=== PATIENT | female | born 1950 | race Caucasian/White ===

== ENCOUNTER 2018-05-18 14:18 | Inpatient (IN) | payer MEDICARE, MEDICAID ==
--- NOTE | 2018-05-18 15:19 | ER Document Report ---
ED Medical Screen (RME) - General Chief Complaint: Diarrhea Stated Complaint: DIARRHEA Time Seen by Provider: 05/18/18 15:11 Notes: RAPID MEDICAL EVALUATION DISCLOSURE I have seen this patient as part of a Rapid Medical Evaluation and, if applicable, placed any initially appropriate orders. The patient will be seen and fully evaluated, including a full history and physical exam, by a provider ( in Main ED or Fast Track) when a room becomes available. 68F here w c/o SOB cough prod white sputum past few days. Feels as though she may have pneumonia again. Also c/o diarrhea past few days, numerous times daily , and feeling cold and clammy. No abd pain n/v. She does wear continuous O2. EXAM Difficult to auscultate 2/2 poor patient effort no abd TTP TRAVEL OUTSIDE OF THE [place] IN LAST 30 DAYS: No - Related Data Allergies/Adverse Reactions: No Known Allergies Allergy (Verified 05/18/18 14:20) Past Medical History - Social History Chew tobacco use (# tins/day): No Frequency of alcohol use: None Drug Abuse: None Pulmonary Medical History: Reports: Hx COPD Renal/ Medical History: Denies: Hx Peritoneal Dialysis Physical Exam - Vital signs Vitals: Temp Pulse Resp BP Pulse Ox 97.7 F 81 20 171/80 H 100 05/18/18 14:37 05/18/18 14:37 05/18/18 14:37 05/18/18 14:37 05/18/18 14:37 Course - Vital Signs Vital signs: Temp Pulse Resp BP Pulse Ox 97.7 F 81 20 171/80 H 100 05/18/18 14:37 05/18/18 14:37 05/18/18 14:37 05/18/18 14:37 05/18/18 14:37
--- NOTE | 2018-05-18 15:49 | RADIOLOGY REPORT (SQ) ---
EXAM DESCRIPTION: CHEST 2 VIEWS COMPLETED DATE/TIME: 05/18/2018 3:37 pm REASON FOR STUDY: cough SOB; pneumonia? COMPARISON: 09/26/2009 EXAM PARAMETERS: NUMBER OF VIEWS: two views TECHNIQUE: Digital Frontal and Lateral radiographic views of the chest acquired. RADIATION DOSE: NA LIMITATIONS: none FINDINGS: LUNGS AND PLEURA: Findings of COPD, unchanged. Mild prominence of the interstitial marnie ngs more so in the apices--upper lobes since the prior examination. Prominence of the bilateral rafael r regions may represent the pulmonary arteries. No pneumothorax or pleural effusion. MEDIASTINUM AND HILAR STRUCTURES: No masses or contour abnormalities. HEART AND VASCULAR STRUCTURES: Heart normal size. No evidence for failure. BONES: Kyphoplasty in the midthoracic spine at the thoracolumbar junction with remote compression de formities, represent new findings since the prior study. No acute findings. HARDWARE: Vascular stent suggested either in the region of the left common carotid artery or left campbell bclavian artery, new finding. Partially visualized IVC filter to the right of the upper lumbar spine . OTHER: Stable hiatal hernia. IMPRESSION: 1 Findings of COPD, unchanged since the prior study dated 09/26/2009. 2 Mild prominence of the interstitial markings particularly in the apices--upper lobes, new finding s silverio the prior study. Prominence of the hilar regions bilaterally may represent pulmonary arteries. Further evaluation with CT chest suggested. TECHNICAL DOCUMENTATION: JOB ID: [id number] [employer]- All Rights Reserved Reading location - IP/workstation name: [email or web address]
[2018-05-18 16:21] LABS: ABSOLUTE BASOPHILS # (AUTO) 0.1 10^3/uL (0.0-0.2); ABSOLUTE EOSINOPHILS # (AUTO) 0.2 10^3/uL (0.0-0.6); ABSOLUTE LYMPHOCYTES (AUTO) 0.6 10^3/uL (0.5-4.7); ABSOLUTE MONOCYTES (AUTO) 0.4 10^3/uL (0.1-1.4); ABSOLUTE NEUT (AUTO) 4.7 10^3/uL (1.7-8.2); HEMOGLOBIN 9.9 g/dL (12.0-15.5); LYMPHOCYTES % (AUTO) 9.7 % (13-45); MEAN CORPUSCULAR HEMOGLOBIN 20.1 pg (27.0-33.4); MEAN CORPUSCULAR HGB CONC 29.1 g/dL (32.0-36.0); MEAN CORPUSCULAR VOLUME 69 fl (80-97); PLATELET COUNT 347 10^3/uL (150-450); RED BLOOD COUNT 4.93 10^6/uL (3.72-5.28); RED CELL DISTRIBUTION WIDTH 20.6 % (11.5-14.0); SEGMENTED NEUTROPHILS % (AUTO) 79.3 % (42-78); TOTAL CELLS COUNTED % (AUTO) 100 %; WHITE BLOOD COUNT 5.9 10^3/uL (4.0-10.5)
[2018-05-18 16:23] LABS: INTERNATIONAL RATION (INR) 2.54; PROTHROMBIN TIME 28.5 SEC (11.4-15.4)
[2018-05-18 16:31] LABS: ALANINE AMINOTRANSFERASE 30 U/L (9-52); ALBUMIN 4.2 g/dL (3.5-5.0); ALKALINE PHOSPHATASE 100 U/L (38-126); ANION GAP 11 (5-19); ASPARTATE AMINO TRANSFERASE 35 U/L (14-36); BILIRUBIN,DIRECT 0.3 mg/dL (0.0-0.4); BILIRUBIN,TOTAL 0.4 mg/dL (0.2-1.3); BLOOD UREA NITROGEN 13 mg/dL (7-20); CALCIUM 9.9 mg/dL (8.4-10.2); CARBON DIOXIDE 35 mmol/L (22-30); CHLORIDE 101 mmol/L (98-107); GLUCOSE 83 mg/dL (75-110); LIPASE 94.1 U/L (23-300); POTASSIUM 4.7 mmol/L (3.6-5.0); SODIUM 147.3 mmol/L (137-145); TOTAL PROTEIN 7.1 g/dL (6.3-8.2)
[2018-05-18 16:40] LABS: TROPONIN I 0.019 ng/mL
--- NOTE | 2018-05-18 16:54 | ER Document Report ---
ED General - General Chief Complaint: Diarrhea Stated Complaint: DIARRHEA Time Seen by Provider: 05/18/18 15:11 TRAVEL OUTSIDE OF THE [place] IN LAST 30 DAYS: No - HPI Notes: Patient is a 68-year-old female with a history of end-stage COPD, coronary artery disease, chronic pain who presents to the ED complaining of a dry semi- productive cough, increasing wheezing, dyspnea over the last several days. Patient states that she is also had diarrhea, but only once per day. She has not noticed any melena or hematochezia. Patient recently moved to the area and has not established with anybody here. She denies any drug allergies. Patient states that she is still eating and drinking without any difficulties. She is urinating normally. Patient states that she has not had any chest pain. Patient states that she feels like she has an illness and exacerbation of her COPD. Denies any headache, fever, URI, sore throat, chest pain, palpitations, syncope, abdominal pain, nausea/vomiting, urinary retention, dysuria, hematuria , or rash. - Related Data Allergies/Adverse Reactions: No Known Allergies Allergy (Verified 05/18/18 14:20) Past Medical History - Social History Smoking Status: Current Some Day Smoker Chew tobacco use (# tins/day): No Frequency of alcohol use: None Drug Abuse: None Family History: Reviewed & Not Pertinent Patient has suicidal ideation: No Patient has homicidal ideation: No Pulmonary Medical History: Reports: Hx COPD Renal/ Medical History: Denies: Hx Peritoneal Dialysis Review of Systems - Review of Systems -: Yes All other systems reviewed and negative Physical Exam - Vital signs Vitals: Temp Pulse Resp BP Pulse Ox 97.7 F 81 20 171/80 H 100 05/18/18 14:37 05/18/18 14:37 05/18/18 14:37 05/18/18 14:37 05/18/18 14:37 - Notes Notes: PHYSICAL EXAMINATION: GENERAL: Cachectic and in no acute distress. A&O. Answers questions appropriately. HEAD: Atraumatic, normocephalic. EYES: Pupils equal round and reactive to light, extraocular movements intact, sclera anicteric, conjunctiva are normal. ENT: Nares patent and without discharge. oropharynx clear without exudates. No tonsilar hypertrophy or erythema. Moist mucous membranes. NECK: Normal range of motion, supple without lymphadenopathy LUNGS: Dec breath sounds throughout, prolonged expiration HEART: Regular rate and rhythm without murmurs, rubs, gallops. ABDOMEN: Soft, nontender, nondistended abdomen. No guarding, no rebound. No masses appreciated. Normal bowel sounds present. No CVA tenderness bilaterally. Musculoskeletal: FROM to passive/active. Strength 5+/5. Extremities: No cyanosis, clubbing, or edema b/l. Peripheral pulses 2+. Capillary refill less than 3 seconds. NEUROLOGICAL: Cranial nerves grossly intact. Normal speech. PSYCH: Normal mood, normal affect. SKIN: Warm, Dry, normal turgor, no rashes or lesions noted. Course - Re-evaluation Re-evalutation: 05/18/18 18:50 Patient is an afebrile, well-hydrated, 68-year-old female who presents to the ED with CHF exacerbation, COPD exacerbation, right apical lung mass (new onset) , compression fractures in the thoracic spine. Vitals are acceptable without any significant tachycardia, tachypnea, or hypoxia. PE is otherwise unremarkable. Venous blood gas shows chronic hypercarbia with compensation. CBC and CMP are unremarkable. BNP was elevated at 3540. See chest x-ray result which led to a CT scan of the chest. I did review with Dr. Christopher who accepted patient for the night hospitalist, Dr. Noriega. - Vital Signs Vital signs: Temp Pulse Resp BP Pulse Ox 97.7 F 81 25 H 165/77 H 100 05/18/18 14:37 05/18/18 14:37 05/18/18 17:36 05/18/18 17:36 05/18/18 14:37 - Laboratory Result Diagrams: 05/18/18 15:55 05/18/18 15:55 Laboratory results interpreted by me: 05/18/18 05/18/18 05/18/18 15:55 15:55 15:55 Hgb 9.9 L Hct 34.0 L MCV 69 L MCH 20.1 L MCHC 29.1 L RDW 20.6 H Seg Neutrophils % 79.3 H Lymphocytes % 9.7 L PT VBG pCO2 VBG HCO3 Sodium 147.3 H Carbon Dioxide 35 H NT-Pro-B Natriuret Pep 3540 H 05/18/18 05/18/18 15:55 17:20 Hgb Hct MCV MCH MCHC RDW Seg Neutrophils % Lymphocytes % PT 28.5 H VBG pCO2 74.8 H* VBG HCO3 37.7 H Sodium Carbon Dioxide NT-Pro-B Natriuret Pep Discharge - Discharge Clinical Impression: COPD exacerbation, Lung mass, Compression fracture CHF (congestive heart failure) Qualifiers: Heart failure type: unspecified Heart failure chronicity: acute Qualified Code( s): I50.9 - Heart failure, unspecified Condition: Stable Disposition: ADMITTED INPATIENT Admitting Provider: Hospitalist - Dr. Noriega Unit Admitted: Medical Floor
[2018-05-18 17:53] LABS: VENOUS BLOOD BASE EXCESS 9.7 mmol/L; VENOUS BLOOD HCO3 37.7 mmol/L (20-32); VENOUS BLOOD PH 7.32 (7.30-7.42)
[2018-05-18 17:57] LABS: VENOUS BLOOD PCO2 74.8 mmHg (35-63)
--- NOTE | 2018-05-18 18:28 | RADIOLOGY REPORT (SQ) ---
EXAM DESCRIPTION: CT CHEST WITH COMPLETED DATE/TIME: 05/18/2018 6:13 pm REASON FOR STUDY: per radiologist suggestion, further evaluation COMPARISON: 2008 TECHNIQUE: CT scan of the chest performed using helical scanning technique with dynamic intravenous contrast injection. Images reviewed with lung, soft tissue and bone windows. Reconstructed coronal and sagittal MPR images reviewed. All images stored on PACS. All CT scanners at this facility use dose modulation, iterative reconstruction, and/or weight based d osing when appropriate to reduce radiation dose to as low as reasonably achievable (ALARA). [facility]: Dose Right [facility]: CareDose [facility]: Dose Right [facility]: Teradose 4D [facility]: TravelZeeky CONTRAST TYPE AND DOSE: contrast/concentration: Isovue 370.00 mg/ml; Total Contrast Delivered: 80.0 ml; Total Saline Delivered: 55.0 ml RENAL FUNCTION: GFR > 60. RADIATION DOSE: CT Rad equipment meets quality standard of care and radiation dose reduction techniq ues were employed. CTDIvol: 3.1 mGy. DLP: 122 mGy-cm. . LIMITATIONS: None. FINDINGS: LUNGS AND PLEURA: Extensive emphysema. There is now 1.2 cm right apical mass not seen on the prior study in 2008. Scarring at the left base. HILAR AND MEDIASTINAL STRUCTURES: No identified masses or abnormal nodes. HEART AND VASCULAR STRUCTURES: No aneurysm or dissection. No central pulmonary emboli. No pericardi al effusion. Left carotid stent. HARDWARE: None in the chest. UPPER ABDOMEN: Large hiatal hernia. THYROID AND OTHER SOFT TISSUES: No masses. No adenopathy. BONES: Treated compression fractures. These appear to be approximately L1 and T6. There also compre ssion fractures of T5 and T8 which could be acute. OTHER: No other significant finding. IMPRESSION: Spiculated right apical mass measures 1.2 cm. New since 2008. Extensive emphysema. Compression fractures of approximately T5 and T8 which could be acute. Additional treated fractures. Large hiatal hernia. TECHNICAL DOCUMENTATION: JOB ID: [id number] Quality ID # [id number]: Final reports with documentation of one or more dose reduction techniques (e.g., Au tomated exposure control, adjustment of the mA and/or kV according to patient size, use of iterative reconstruction technique) 2010 [employer]- All Rights Reserved Reading location - IP/workstation name: [email or web address]
--- NOTE | 2018-05-18 19:20 | EKG REPORT ---
SEVERITY:- ABNORMAL ECG - SINUS RHYTHM ATRIAL PREMATURE COMPLEX RIGHT ATRIAL ABNORMALITY BORDERLINE RIGHT AXIS DEVIATION CONSIDER LEFT VENTRICULAR HYPERTROPHY : Confirmed by: Lory Vasques 18-May-2018 19:19:54
[2018-05-18] MEDS ORDERED: ACETAMINOPHEN 325 MG TABLET PO PRN (21:12)
[2018-05-18] MEDS ORDERED: IPRATROPIUM/ALBUTEROL 0.5-2.5 MG/3 ML AMPUL NEB PRN (21:12)
[2018-05-18] MEDS ORDERED: METHYLPREDNISOLONE INJ 125 MG/2 ML SDV IV ONE (21:30)
[2018-05-18] MEDS ORDERED: WARFARIN SODIUM 4 MG TABLET PO SCH (22:00)
[2018-05-18] MEDS ORDERED: METHYLPREDNISOLONE INJ 125 MG/2 ML SDV IV SCH (22:00)
[2018-05-18] MEDS ORDERED: AZITHROMYCIN 500 MG in DEXTROSE 5%-WATER 250 ML IV SCH (22:00)
[2018-05-18] MEDS ORDERED: (PENDING PHARMACY ID) (Buspirone Hcl [Buspar 5 Mg Tablet] 5 MG) PO SCH (22:00)
[2018-05-18] MEDS: BUSPIRONE HCL 10 MG TABLET PO SCH (22:32)
[2018-05-18] MEDS: GABAPENTIN 300 MG CAPSULE PO SCH (22:33)
[2018-05-19] MEDS: HYDROCODONE/ACETAMINOPHEN 5-325 MG TABLET PO PRN (01:03)
[2018-05-19] MEDS: METHYLPREDNISOLONE INJ 40 MG/1 ML SDV IV SCH ×3 (01:04→18:29)
[2018-05-19] MEDS ORDERED: NICOTINE 14 MG/24 HR PATCH.TD24 TD PRN (01:44)
--- NOTE | 2018-05-19 01:44 | PDOC H&P ---
History of Present Illness Admission Date/PCP: 05/18/18 18:58 Patient complains of: Shortness of breath History of Present Illness: MJ SHELTON is a 68 year old female, with history of end stage COPD on concentrated oxygen at home, comes to the emergency department complaining of progressive shortness of breath for the last 3 days, cough, with whitish sputum and wheezing, clammy sensation. Today it was very hard to breathe at home, nebulizer treatments did not work. The patient is still unfortunately a smoker , she has not been smoking for the last 2 days secondary to her symptoms. Patient also has had diarrhea for the last 3 days with 2 soft bowel nonbloody movements yesterday and today 1 bowel movement. Denies fever, headache, chest pain, abdominal pain, urinary symptoms. Denies weight loss, patient looks cachectic. Patient just moved from [place] last week to live with her daughter. In the ED CT of the chest was done which unfortunately came back positive for right upper lung mass; several compression fracture, apparently acute in T5-T8. Past Medical History Past Medical History: End stage COPD on concentrated oxygen at home. On oxygen for about 10 years Congestive heart failure, unknown systolic or diastolic Coronary arterial disease with 1 stent placed Chronic anemia Hypertension Osteoporosis Hiatal hernia Peripheral vascular disease Pulmonary Medical History: Reports: Chronic Obstructive Pulmonary Disease (COPD) Psychiatric Medical History: Reports: Depression Past Surgical History Past Surgical History: Left carotid stent Revascularization and lower extremities Social History Smoking Status: Current Every Day Smoker - Smokes from 3-6 cigarettes a day. Used to smoke 4 packs per day at some point of her life. A started smoking when she was 14 years old Frequency of Alcohol Use: None Drugs: None Family History Family History: Reviewed & Not Pertinent Family History: Mother is alive 88 years old, history of CABG 4, CVA and hypertension. Father at 78 years old with metastatic stomach cancer. Sister with kidney problems. Brother and sister with lung cancer Parental Family History Reviewed: No Children Family History Reviewed: NA Sibling(s) Family History Reviewed.: NA Medication/Allergy Home Medications: Amlodipine Besylate [Norvasc 5 mg Tablet] 2.5 mg PO DAILY 05/18/18 Buspirone HCl [Buspar 5 mg Tablet] 5 mg PO Q12 05/18/18 Citalopram Hydrobromide [Celexa 10 mg Tablet] 10 mg PO DAILY 05/18/18 Donepezil HCl [Aricept 5 mg Tablet] 5 mg PO QPM 05/18/18 Ferrous Sulfate [Feosol 325 mg Tablet] 325 mg PO BID 05/18/18 Fluticasone Propionate [Flovent HFA 220 mcg MDI] 2 puff IH Q12 05/18/18 Gabapentin [Neurontin 300 mg Capsule] 300 mg PO Q8 05/18/18 Hydrocodone/Acetaminophen [Hydrocodone-Acetamin 5-325 mg] 1 tab PO Q8HP PRN Mirtazapine [Remeron 15 mg Tablet] 15 mg PO QPM 05/18/18 Tiotropium [place] [Spiriva Handihaler 5 Cap/Kit (18 Mcg/Cap)] 1 puff IH DAILY 05/18/18 Warfarin Sodium [Coumadin 4 mg Tablet] 4 mg PO QPM 05/18/18 Allergies/Adverse Reactions: No Known Allergies Allergy (Verified 05/18/18 14:20) Review of Systems Review of Systems: As outlined in the HPI, all others negative Physical Exam Vital Signs: Temp Pulse Resp BP Pulse Ox 98.2 F 92 18 125/79 100 05/18/18 23:19 05/18/18 23:19 05/18/18 23:19 05/18/18 23:19 05/19/18 00:12 Additional comments: General appearance: Cachectic, alert and cooperative, and appears to be in mild distress secondary to her shortness of breath Head: Normocephalic Eyes: PEERL, EOMI, vision is grossly intact. Ears: External auditory canal and tympanic membranes clear, hearing grossly intact. Nose: No nasal discharge. Throat: Oral cavity and pharynx normal. No inflammation, swelling, exudate or lesions. Neck: Neck supple, nontender without lymphadenopathy, masses or thyromegaly. Cardiac: Normal S1 and S2. No S3, S4 or murmurs. Rhythm is regular. There is no peripheral edema, cyanosis or pallor. Extremities are warm and well perfused. Capillary refill is less than 2 seconds. No carotid bruits. Lungs: Bilateral decreased breath sounds with rales, mild diffuse rhonchi, diffused wheezing. Not using accessory muscles. Abdomen: Positive bowel sounds. Soft. Nondistended, nontender. No guarding or rebound. No masses. No hepatosplenomegaly Extremities: No significant deformity or joint abnormality. No edema. Peripheral pulses intact. No varicosities. Neurological: Cranial nerves II through XII grossly intact. Strength and sensation symmetric and intact throughout. Reflexes 2+ throughout. Skin: Skin normal color, texture and turgor with no lesions or eruptions, warm and dry. Psychiatric: The mental examination revealed the patient was oriented to person , place, and time. The patient was able to demonstrate good judgment on recent , without hallucinations, abnormal affect or abnormal behaviors. Results Laboratory Results: Laboratory reviewed Impressions: Chest X-Ray 05/18/18 15:17 IMPRESSION: 1 Findings of COPD, unchanged since the prior study dated 2008. 2 Mild prominence of the interstitial markings particularly in the apices-- upper lobes, new finding since the prior study. Prominence of the hilar regions bilaterally may represent pulmonary arteries. Further evaluation with CT chest suggested. Chest CT 05/18/18 16:19 IMPRESSION: Spiculated right apical mass measures 1.2 cm. New since 2008. Extensive emphysema. Compression fractures of approximately T5 and T8 which could be acute. Additional treated fractures. Large hiatal hernia. Assessment & Plan - Diagnosis (1) COPD exacerbation Is this a current diagnosis for this admission?: Yes Plan: COPD exacerbation in the setting of chronic respiratory failure on concentrated oxygen at home. No documentation of hypoxia when the patient arrived to the emergency department and was saturating 100% on 2 L oxygen via nasal cannula. At times tachypneic, requesting a steroids I will give 125 mg IV Solu-Medrol followed by 60 mg every 8 hours. O2 protocol with RT consult. Nebulizer treatments with DuoNeb every 3 hours as needed. IV azithromycin. Telemetry monitoring. Follow blood culture seen in the ED. (2) Compression fracture Plan: Patient shows several compression fractures in the CT of the chest, unclear if T5-T8 are acute but the patient is not complaining of back pain at the time of my evaluation. Will place orthopedics consult. (3) Lung mass Plan: CT of the chest shows a 1.2 cm of right apical mass, different from CT done in 2007, patient with family history of lung cancer and heavy smoker past, unfortunately currently smoking. Patient is aware of the diagnosis and probably workup has to be done as an outpatient. (4) Coronary artery disease Plan: No cardiac symptomatology continue with home medications. - Time Time Spent: 30 to 50 Minutes Anticipated discharge: Home Within: within 24 hours, within 48 hours
[2018-05-19] MEDS: GABAPENTIN 300 MG CAPSULE PO SCH ×3 (06:48→21:46)
[2018-05-19 07:14] LABS: PROTHROMBIN TIME 29.1 SEC (11.4-15.4)
[2018-05-19 07:21] LABS: ANION GAP 9 (5-19); BLOOD UREA NITROGEN 16 mg/dL (7-20); CALCIUM 9.9 mg/dL (8.4-10.2); CARBON DIOXIDE 36 mmol/L (22-30); CHLORIDE 101 mmol/L (98-107); GLUCOSE 122 mg/dL (75-110); PHOSPHORUS 5.1 mg/dL (2.5-4.5); POTASSIUM 5.1 mmol/L (3.6-5.0); SODIUM 145.5 mmol/L (137-145)
[2018-05-19 07:54] LABS: ARTERIAL BLOOD FIO2 2L; ARTERIAL BLOOD H2CO3 1.99 mmol/L (1.05-1.35); ARTERIAL BLOOD HCO3 34.3 mmol/L (20-26); ARTERIAL BLOOD O2 SATURATION 97.5 % (94-98); ARTERIAL BLOOD PCO2 66.2 mmHg (35-45); ARTERIAL BLOOD PH 7.33 (7.35-7.45); ARTERIAL BLOOD PO2 108.9 mmHg (80-100); ARTERIAL BLOOD TOTAL CO2 36.3 mmol/L (21-25)
[2018-05-19 08:10] LABS: HEMATOCRIT 32.4 % (36.0-47.0); HEMOGLOBIN 9.5 g/dL (12.0-15.5); MEAN CORPUSCULAR HEMOGLOBIN 20.2 pg (27.0-33.4); MEAN CORPUSCULAR HGB CONC 29.2 g/dL (32.0-36.0); MEAN CORPUSCULAR VOLUME 69 fl (80-97); PLATELET COUNT 300 10^3/uL (150-450); RED CELL DISTRIBUTION WIDTH 20.2 % (11.5-14.0)
[2018-05-19 08:11] LABS: WHITE BLOOD COUNT 2.6 10^3/uL (4.0-10.5)
--- NOTE | 2018-05-19 09:06 | Physician Advisory Note ---
Physician Advisor ProgressNote .: [facility], I have reviewed the medical record for this patient. Physician Advisor Statement: Nice documentation of "Chronic [Hypoxemic/hypercarbic] Respiratory Failure, pt needs O2 at baseline". (2L O2) Please consider documenting, if you agree: 1. "Acute bronchitis", or what dx is being tx'd w/abx, given COPD exac.s don't require abx unless underlying infxn is suspected w/it... 2. ?"mild acute hypercarbic respiratory failure" ("mild resp distress" already documented in H&P) - pt w/chr resp failure, w/pH <7.35 associated w/hypercarbia ("any degree of acute respiratory acidosis", defined by this parameter, in chr resp failure qualifies for this dx) 3. "underweight with protein-calorie malnutrition [state mild, mod, or severe] with BMI 10.6, ____[?wt loss, ?appetite loss, ]" [if possible, give specifics on intake, wt loss, loss of SQ fat & muscle mass, diminished hand wash tank tender strength, & clinical importance such as (A) nutritional assessment ordered, (B) modified diet or supplements ordered, (C) additional labs ordered, (D) prolonged wound healing time, (E) delayed infxn clearance] 4. "chronic CHF, suspect type" - ? diastolic, since heart size nl, evidence for LVH by EKG, pt not on ACEI/ ARB, BB, etc.? 5. "Rt apical lung mass, suspect " (lung CA? or PNA or ...?) - documentation so far implies suspicion of lung CA, but suspected underlying dx needs to be made explicit for coding ... 6. Medical necessity: Medicare pt, has needed 1 MN of hospital care so far. If she is not sufficiently improved for safe d/c later today, please document ongoing clinical issues/concerns (recurrent tachypnea/tachycardia, or not yet back to resp baseline yet, or ...), & may change to INpatient status. Thanks! CK
[2018-05-19] MEDS: FERROUS SULFATE 325 MG TABLET PO SCH ×2 (09:21→18:28)
[2018-05-19] MEDS: TIOTROPIUM BROMIDE DPI 5 CAP/KIT (18 MCG/CAP) IH SCH (09:22)
[2018-05-19] MEDS: CITALOPRAM HYDROBROMIDE 20 MG TABLET PO SCH (09:22)
[2018-05-19] MEDS: BUSPIRONE HCL 10 MG TABLET PO SCH ×2 (09:22→21:46)
[2018-05-19] MEDS: AMLODIPINE BESYLATE 2.5 MG TABLET PO SCH (09:24)
[2018-05-19] MEDS ORDERED: (PENDING PHARMACY ID) (Citalopram Hydrobromide [Celexa 10 Mg Tablet] 10 MG) PO SCH (10:00)
[2018-05-19] MEDS ORDERED: AMLODIPINE BESYLATE 5 MG TABLET PO SCH (10:00)
--- NOTE | 2018-05-19 16:09 | PDOC PROGRESS REPORT ---
<STEPHEN CASTILLO - Last Filed: 05/19/18 16:09> Subjective Progress Note for:: 05/19/18 Subjective:: Patient is seen resting in bed. She is awake, alert and oriented 3. She continues to have productive cough with thick white sputum raise. She states her breathing feels improved somewhat due to IV steroids. She states she began having upper respiratory symptoms 1 week ago with nasal congestion and sore throat. This progressed to cough, worsening dyspnea and chills. She felt like she does when she has pneumonia. She states last night she was unable to catch her breath. She thought she was going to . She wears oxygen at home continuously at 3 L/min. She has just removed to the area and has no physician established yet. She has borrowed her oxygen concentrator from a family member. She states she was having diarrhea last night as well. She has had a very poor appetite and she knows she is continued to lose weight. Remaining review of systems are negative Reason For Visit: COPD EXACERBATION Physical Exam Vital Signs: Temp Pulse Resp BP Pulse Ox 98.4 F 83 16 116/62 94 05/19/18 13:02 05/19/18 14:39 05/19/18 14:39 05/19/18 13:02 05/19/18 14:39 General appearance: PRESENT: mild distress, thin - She becomes dyspneic with minimal exertion. Head exam: PRESENT: atraumatic, normocephalic Eye exam: PRESENT: conjunctiva pink, EOMI, PERRLA. ABSENT: scleral icterus Ear exam: PRESENT: normal external ear exam Mouth exam: PRESENT: moist, tongue midline Neck exam: ABSENT: carotid bruit, JVD, lymphadenopathy, thyromegaly Respiratory exam: PRESENT: accessory muscle use, decreased breath sounds, rhonchi, symmetrical, tachypnea Cardiovascular exam: PRESENT: RRR. ABSENT: diastolic murmur, rubs, systolic murmur Pulses: PRESENT: normal carotid pulses, normal radial pulses Vascular exam: PRESENT: normal capillary refill GI/Abdominal exam: PRESENT: normal bowel sounds, soft. ABSENT: distended, guarding, mass, organolmegaly, rebound, tenderness Rectal exam: PRESENT: deferred Extremities exam: PRESENT: full ROM. ABSENT: calf tenderness, clubbing, pedal edema Musculoskeletal exam: PRESENT: full ROM, normal inspection Neurological exam: PRESENT: alert, awake, oriented to person, oriented to place , oriented to time, oriented to situation, CN II-XII grossly intact. ABSENT: motor sensory deficit Psychiatric exam: PRESENT: anxious Skin exam: PRESENT: dry, skin tears, warm Results Impressions: Chest X-Ray 05/18/18 15:17 IMPRESSION: 1 Findings of COPD, unchanged since the prior study dated 2008. 2 Mild prominence of the interstitial markings particularly in the apices-- upper lobes, new finding since the prior study. Prominence of the hilar regions bilaterally may represent pulmonary arteries. Further evaluation with CT chest suggested. Chest CT 05/18/18 16:19 IMPRESSION: Spiculated right apical mass measures 1.2 cm. New since 2008. Extensive emphysema. Compression fractures of approximately T5 and T8 which could be acute. Additional treated fractures. Large hiatal hernia. Assessment & Plan - Diagnosis (1) Acute hypercapnic respiratory failure Is this a current diagnosis for this admission?: Yes Plan: Secondary to acute bronchitis in the setting of severe COPD. She likely could benefit from CPAP or BiPAP therapy at night. She presented with PCO2 of 75. Will order BiPAP as needed and at bedtime. Consult to pulmonary. Continue IV broad-spectrum antibiotics for acute bronchitis and taper steroids. (2) COPD exacerbation Is this a current diagnosis for this admission?: Yes Plan: Likely secondary to bronchitis and recent upper respiratory infection. Need to find patient primary care provider she is just moved to the area last week with her daughter. (3) Lung mass Is this a current diagnosis for this admission?: Yes Plan: Incidental finding of a 1.2 spiculated right upper lobe lung mass setting of COPD and tobacco abuse. I have asked Dr. Macias, shop and alteration tailor to see patient. Patient likely would not be a surgical candidate due to her severe COPD and cachetic state. She may be a candidate for radiation therapy (4) Compression fracture Is this a current diagnosis for this admission?: Yes Plan: Patient denies any recent falls. Not having pain in her back at the present time either. Cancel consult with orthopedics patient is not interested in kyphoplasty at this time (5) Coronary artery disease QualifierTitle: Coronary Disease-Associated Artery/Lesion type: [place] artery Is this a current diagnosis for this admission?: Yes Plan: Patient states she has 1 stent in her coronary arteries and one stent in her carotid. (6) Severe protein-calorie malnutrition ([place]: less than 60% of standard weight ) Is this a current diagnosis for this admission?: Yes Plan: Liberalize her diet. Consult dietary for nutritional supplements. She is a BMI of 11. She admits to very poor appetite due to respiratory difficulties. (7) Chronic anticoagulation Is this a current diagnosis for this admission?: Yes Plan: Patient states she is taking Coumadin for sounds like paroxysmal atrial fibrillation and her carotid disease (8) Tobacco abuse Is this a current diagnosis for this admission?: Yes Plan: 10 minutes spent in [id number] counseling regarding tobacco cessation therapy. She states she has stopped multiple times and then relapses - Time Time Spent with patient: 25-34 minutes Total Critical Time (Minutes): 20 Smoking Cessation Education: 3 to 10 minutes Medications reviewed and adjusted accordingly: Yes - Inpatient Certification Based on my medical assessment, after consideration of the patient's comorbidities, presenting symptoms, or acuity I expect that the services needed warrant INPATIENT care.: Yes I certify that my determination is in accordance with my understanding of Medicare's requirements for reasonable and necessary INPATIENT services [42 CFR 412.3e].: Yes Medical Necessity: Significant Comorbidiites Make Outpatient Treatment Too Risky , Need for Nebulizer Therapy and Monitoring of Response, Risk of Complication if Not Cared For in Hospital <ABDIEL QURESHI - Last Filed: 05/19/18 18:11> Subjective Reason For Visit: COPD EXACERBATION Physical Exam Vital Signs: Temp Pulse Resp BP Pulse Ox 98.4 F 93 16 112/63 98 05/19/18 16:45 05/19/18 16:45 05/19/18 16:45 05/19/18 16:45 05/19/18 16:45 Results Impressions: Chest X-Ray 05/18/18 15:17 IMPRESSION: 1 Findings of COPD, unchanged since the prior study dated 2008. 2 Mild prominence of the interstitial markings particularly in the apices-- upper lobes, new finding since the prior study. Prominence of the hilar regions bilaterally may represent pulmonary arteries. Further evaluation with CT chest suggested. Chest CT 05/18/18 16:19 IMPRESSION: Spiculated right apical mass measures 1.2 cm. New since 2008. Extensive emphysema. Compression fractures of approximately T5 and T8 which could be acute. Additional treated fractures. Large hiatal hernia. Provider Note Provider Note: I have discussed the patient in detail with JAMMIE Castillo. I am in agreement with her evaluation and plan.
[2018-05-19] MEDS ORDERED: (PENDING PHARMACY ID) (Warfarin Sodium 4 MG) PO SCH (18:00)
[2018-05-19] MEDS: MIRTAZAPINE 15 MG TABLET PO SCH (18:28)
[2018-05-19] MEDS: DONEPEZIL HCL 5 MG TABLET PO SCH (18:28)
[2018-05-19] MEDS: FLUTICASONE/SALMETEROL DISKUS 250-50 MCG/DOSE IH SCH (21:46)
[2018-05-19] MEDS: WARFARIN SODIUM 3 MG TABLET PO SCH (21:46)
[2018-05-19] MEDS: AZITHROMYCIN 250 MG TABLET PO SCH (21:46)
[2018-05-20] MEDS: METHYLPREDNISOLONE INJ 40 MG/1 ML SDV IV SCH ×3 (01:31→18:26)
[2018-05-20] MEDS: GABAPENTIN 300 MG CAPSULE PO SCH ×3 (06:34→21:29)
[2018-05-20] MEDS: FERROUS SULFATE 325 MG TABLET PO SCH ×2 (08:44→15:39)
[2018-05-20] MEDS: CITALOPRAM HYDROBROMIDE 20 MG TABLET PO SCH (10:25)
[2018-05-20] MEDS: BUSPIRONE HCL 10 MG TABLET PO SCH ×2 (10:25→21:29)
[2018-05-20] MEDS: AMLODIPINE BESYLATE 2.5 MG TABLET PO SCH (10:26)
[2018-05-20] MEDS: FLUTICASONE/SALMETEROL DISKUS 250-50 MCG/DOSE IH SCH ×2 (10:27→21:29)
[2018-05-20] MEDS: TIOTROPIUM BROMIDE DPI 5 CAP/KIT (18 MCG/CAP) IH SCH (10:28)
--- NOTE | 2018-05-20 13:02 | CONSULTATION REPORT E ---
Consultation Report NAME: MJ SHELTON : 1950 AGE: 68Y DATE: 05/19/2018 407 A TO: DARRYL WANG M.D. FROM: BENJAMÍN TERRY M.D. Requesting Physician The patient is a 68-year-old female who came in with severe COPD, emphysema, on home oxygen therapy. From [place], relocated to [place] and has been in [place] for the last few weeks. Came to the emergency room with increasing shortness of breath, wheezing, and chest tightness. Was managed for COPD exacerbation and congestive heart failure. Denies fever, chills. Denies any sputum production or hemoptysis. Currently feeling a lot better. No nausea, vomiting, diarrhea, or abdominal pain. PAST MEDICAL HISTORY: End-stage COPD on home oxygen. History of congestive heart failure, coronary artery disease, one stent placed, anemia, hypertension, osteoporosis, and peripheral vascular disease. Status post abdominal aorta and iliofemoral reconstruction. History of depression. SURGICAL HISTORY: Left carotid stent. Revascularization of lower extremities. SOCIAL HISTORY: The patient smokes 2 to 3 cigarettes a day. Used to smoke 4 packs per day at some point in her life. She started smoking when she was 14 years old. FAMILY HISTORY: Not pertinent. Reviewed. Father has history of metastatic stomach cancer. Sister has kidney problems. Relatives with lung cancer. MEDICATIONS: 1. Norvasc. 2. BuSpar. 3. Celexa. 4. Aricept. 5. Ferrous sulfate. 6. Flovent. 7. Neurontin. 8. Hydrocodone. 9. Remeron. 10. Spiriva inhaler. 11. Coumadin. ALLERGIES: No known drug allergies. REVIEW OF SYSTEMS: CONSTITUTIONAL: No fever or chills. EYES: No conjunctival pallor. EARS, NOSE, THROAT: No ear or nasal discharge. NECK: Supple. CHEST: Shortness of breath and wheezing. Chest tightness. Denies hemoptysis or sputum production. CARDIOVASCULAR: History of hypertension. No history of heart attack or cardiac arrhythmias. GASTROINTESTINAL: No nausea, vomiting, diarrhea. GENITOURINARY: No dysuria or hematuria. EXTREMITIES: No joint swelling. Severe peripheral vascular disease. Status post revascularization of lower extremities. PHYSICAL EXAMINATION: GENERAL: The patient is awake, alert, oriented, afebrile. Oriented x3. VITAL SIGNS: Temperature 98.4 with a T-max of 98.5. Heart rate 93, blood pressure 112/63, respiratory rate 16, saturation 98% on 3 liters nasal cannula. EYES: No conjunctival pallor. EARS, NOSE, THROAT: No ear drainage or nasal discharge. NECK: No neck tenderness. Neck is supple. CHEST AND LUNGS: No wheezing, no rhonchi. CARDIOVASCULAR: S1, S2 distant. No murmur heard. ABDOMEN: Flabby, positive bowel sounds, soft, nondistended, nontender. EXTREMITIES: No joint swelling or cellulitis. LABORATORY: CBC today shows a white count of 2.6 from 5.9, hemoglobin 9.5, hematocrit 32.4, platelets 300. Blood gas today was pH 7.33, pCO2 of 6.2, pO2 of 78.4, saturation 97.5. Chemistry done today shows sodium 135, potassium 5.5, chloride 101, CO2 is 36, BUN 16, creatinine 0.69, glucose 122, calcium 9.9. Phosphorus 5.1. Magnesium 2.1. NT BNP 3540. ASSESSMENT: 1. SEVERE CHRONIC OBSTRUCTIVE PULMONARY DISEASE. Currently stable and not in acute exacerbation. 2. PULMONARY NODULE RIGHT UPPER LOBE. Spiculated with central aeration. Most likely scarring, but malignancy could not be completely excluded at this time PLAN/RECOMMENDATIONS: 1. Will start the patient on Advair 250 one puff three times daily. 2. Spiriva inhaler 1 capsule daily. 3. Albuterol nebulizer treatment every 6 hours as needed. 4. Taper the intravenous Solu-Medrol. 5. Will schedule PET scan as an outpatient. Recommend pulmonary clinic followup in 2 weeks after hospital discharge. DICTATING PHYSICIAN: DARRYL WANG MD,NEERAJ,MPH [id number] PHY#: [id number] ID: [id number] JOB#: [id number] ACCT: [id number] cc:DARRYL WANG M.D. > MTDD
[2018-05-20] MEDS: DONEPEZIL HCL 5 MG TABLET PO SCH (18:26)
[2018-05-20] MEDS: MIRTAZAPINE 15 MG TABLET PO SCH (18:26)
--- NOTE | 2018-05-20 18:37 | PDOC PROGRESS REPORT ---
Subjective Progress Note for:: 05/20/18 Reason For Visit: COPD EXACERBATION Physical Exam Vital Signs: Temp Pulse Resp BP Pulse Ox 98.6 F 85 16 126/72 H 100 05/20/18 15:24 05/20/18 15:24 05/20/18 15:24 05/20/18 15:24 05/20/18 15:24 Intake & Output 05/19/18 05/20/18 05/21/18 06:59 06:59 06:59 Intake Total 40 Balance 40 Weight 27.3 kg General appearance: PRESENT: no acute distress, thin, other Head exam: PRESENT: atraumatic, other Eye exam: PRESENT: conjunctiva pink, EOMI, PERRLA. ABSENT: scleral icterus Mouth exam: PRESENT: moist, tongue midline Respiratory exam: PRESENT: wheezes - She is significantly diminished bilaterally with end expiratory wheezing noted throughout all lung morgan Cardiovascular exam: PRESENT: RRR. ABSENT: diastolic murmur, rubs, systolic murmur GI/Abdominal exam: PRESENT: normal bowel sounds, soft. ABSENT: distended, guarding, mass, organolmegaly, rebound, tenderness Rectal exam: PRESENT: deferred Extremities exam: PRESENT: full ROM, other - Muscle wasting in all 4 of her extremities. ABSENT: calf tenderness, clubbing, pedal edema Neurological exam: PRESENT: alert, awake, oriented to person, oriented to place , oriented to time, oriented to situation, CN II-XII grossly intact. ABSENT: motor sensory deficit Psychiatric exam: PRESENT: appropriate affect, normal mood. ABSENT: homicidal ideation, suicidal ideation Skin exam: PRESENT: dry, intact, warm. ABSENT: cyanosis, rash Results Laboratory Results: 05/20/18 09:11 Phosphorus 4.8 H Impressions: Chest X-Ray 05/18/18 15:17 IMPRESSION: 1 Findings of COPD, unchanged since the prior study dated 2008. 2 Mild prominence of the interstitial markings particularly in the apices-- upper lobes, new finding since the prior study. Prominence of the hilar regions bilaterally may represent pulmonary arteries. Further evaluation with CT chest suggested. Chest CT 05/18/18 16:19 IMPRESSION: Spiculated right apical mass measures 1.2 cm. New since 2008. Extensive emphysema. Compression fractures of approximately T5 and T8 which could be acute. Additional treated fractures. Large hiatal hernia. Assessment & Plan - Diagnosis (1) Acute hypercapnic respiratory failure Is this a current diagnosis for this admission?: Yes Plan: Resolving. No longer requiring BiPAP. Secondary to COPD exacerbation. (2) Lung mass Is this a current diagnosis for this admission?: Yes Plan: Appreciate the assistance from pulmonology. At this point I am going to obtain a CT scan with IV and oral contrast of the abdomen and pelvis. She may require outpatient biopsy. Her lesion is not amenable to CT-guided biopsy. We will see whether she has any disease in the abdomen that we could possibly biopsy. I have discussed this with the patient and her daughter and they are in agreement. She will need an outpatient PET scan (3) COPD exacerbation Is this a current diagnosis for this admission?: Yes Plan: Continue parenteral steroids. She also has scheduled breathing treatments in place. Oxygen support as needed (4) Coronary artery disease Is this a current diagnosis for this admission?: Yes Plan: Continue home regimen (5) Thoracic compression fracture Is this a current diagnosis for this admission?: Yes Plan: Continue home regimen of narcotics (6) Severe protein-calorie malnutrition Is this a current diagnosis for this admission?: Yes Plan: We will get the clinical dietitian to see the patient. She certainly has pulmonary cachexia and possibly worsening of her nutritional status due to underlying malignancy (7) CHF (congestive heart failure) Is this a current diagnosis for this admission?: Yes Plan: She reports that she has congestive heart failure. She just moved to the [place] area and we do not have records. I suspect she has diastolic congestive heart failure. At this point in light of all of her other issues am going to hold off on obtaining a 2D echocardiogram. We will try to get records from her physicians in [place]. (8) Atrial fibrillation Is this a current diagnosis for this admission?: Yes Plan: She currently is in a sinus rhythm and rate controlled. Continue Coumadin for anticoagulation (9) Chronic anticoagulation Is this a current diagnosis for this admission?: Yes Plan: Continue Coumadin. Pharmacy is managing her dosing (10) Tobacco dependence Is this a current diagnosis for this admission?: Yes Plan: Certainly it would be in her best interest to quit smoking (11) Anemia Is this a current diagnosis for this admission?: Yes Plan: Stable. Will recheck level in the morning (12) Hyperkalemia Is this a current diagnosis for this admission?: Yes Plan: Resolved (13) Hypernatremia Is this a current diagnosis for this admission?: Yes Plan: Improving (14) Chronic pain Is this a current diagnosis for this admission?: Yes Plan: Likely due to compression fractures in her back. Continue home dose of narcotics (15) Opiate dependence, continuous Is this a current diagnosis for this admission?: Yes Plan: Continue home dose of narcotics (16) Full code status Is this a current diagnosis for this admission?: Yes - Time Time Spent with patient: 25-34 minutes - Inpatient Certification Medical Necessity: Need for IV Antibiotics, Other - Inpatient hospitalization remains necessary. The patient's having an acute COPD exacerbation requiring parenteral steroids and antibiotics. She needs further workup for her newly diagnosed lung mass. Timing of disposition will be determined by her clinical course
[2018-05-20] MEDS: WARFARIN SODIUM 3 MG TABLET PO SCH (21:29)
[2018-05-20] MEDS: AZITHROMYCIN 250 MG TABLET PO SCH (21:29)
[2018-05-21 05:46] LABS: HEMATOCRIT 27.4 % (36.0-47.0); HEMOGLOBIN 8.2 g/dL (12.0-15.5); MEAN CORPUSCULAR HEMOGLOBIN 20.5 pg (27.0-33.4); MEAN CORPUSCULAR HGB CONC 29.9 g/dL (32.0-36.0); MEAN CORPUSCULAR VOLUME 69 fl (80-97); PLATELET COUNT 277 10^3/uL (150-450); RED CELL DISTRIBUTION WIDTH 20.2 % (11.5-14.0)
[2018-05-21] MEDS: GABAPENTIN 300 MG CAPSULE PO SCH ×3 (06:05→21:40)
[2018-05-21 06:14] LABS: ALANINE AMINOTRANSFERASE 20 U/L (9-52); ALBUMIN 3.2 g/dL (3.5-5.0); ALKALINE PHOSPHATASE 63 U/L (38-126); ANION GAP 9 (5-19); ASPARTATE AMINO TRANSFERASE 21 U/L (14-36); BILIRUBIN,DIRECT 0.2 mg/dL (0.0-0.4); BILIRUBIN,TOTAL 0.2 mg/dL (0.2-1.3); BLOOD UREA NITROGEN 22 mg/dL (7-20); CALCIUM 9.5 mg/dL (8.4-10.2); CARBON DIOXIDE 36 mmol/L (22-30); CHLORIDE 101 mmol/L (98-107); GLUCOSE 93 mg/dL (75-110); POTASSIUM 5.3 mmol/L (3.6-5.0); SODIUM 145.8 mmol/L (137-145); TOTAL PROTEIN 5.8 g/dL (6.3-8.2)
[2018-05-21 07:03] LABS: WHITE BLOOD COUNT 12.1 10^3/uL (4.0-10.5)
[2018-05-21 07:05] LABS: ABSOLUTE LYMPHOCYTES# (MANUAL) 0.6 10^3/uL (0.5-4.7); ABSOLUTE MONOCYTES # (MANUAL) 0.1 10^3/uL (0.1-1.4); ABSOLUTE NEUTROPHILS# (MANUAL) 11.3 10^3/uL (1.7-8.2); BASOPHILS % (MANUAL) 0 % (0-2); EOSINOPHILS % (MANUAL) 1 % (0-6); LYMPHOCYTES % (MANUAL) 5 % (13-45); MONOCYTES % (MANUAL) 1 % (3-13); SEGMENTED NEUTROPHILS % (MAN) 93 % (42-78); TOTAL CELLS COUNTED 100
[2018-05-21 07:06] LABS: HYPOCHROMASIA 2+; OVALOCYTES 1+; PLATELET COMMENT ADEQUATE; POLYCHROMASIA SLIGHT; TOXIC GRANULATION SLIGHT
[2018-05-21] MEDS: FERROUS SULFATE 325 MG TABLET PO SCH ×2 (07:45→15:24)
[2018-05-21] MEDS: HYDROCODONE/ACETAMINOPHEN 5-325 MG TABLET PO PRN (07:47)
--- NOTE | 2018-05-21 08:11 | RADIOLOGY REPORT (SQ) ---
EXAM DESCRIPTION: CT ABD/PELVIS WITH IV ORAL COMPLETED DATE/TIME: 05/20/2018 10:38 pm REASON FOR STUDY: lung mass, rule out mets COMPARISON: CTA chest 05/18/2018 CT chest 09/26/2009 TECHNIQUE: CT scan of the abdomen and pelvis performed using helical scanning technique with dynamic intravenous contrast injection. Patient drank oral contrast. Images reviewed with lung, soft tissue , and bone windows. Reconstructed coronal and sagittal MPR images reviewed. Delayed images for evalua tion of the urinary system also acquired. All images stored on PACS. All CT scanners at this facility use dose modulation, iterative reconstruction, and/or weight based d osing when appropriate to reduce radiation dose to as low as reasonably achievable (ALARA). [facility]: Dose Right [facility]: CareDose [facility]: Dose Right [facility]: Teradose 4D [facility]: [employer] CONTRAST TYPE AND DOSE: contrast/concentration: Isovue 370.00 mg/ml; Total Contrast Delivered: 29.0 ml; Total Saline Delivered: 51.0 ml RENAL FUNCTION: Creatinine 0.7 RADIATION DOSE: CT Rad equipment meets quality standard of care and radiation dose reduction techniq ues were employed. CTDIvol: 2.2 mGy. DLP: 206 mGy-cm.. LIMITATIONS: None. FINDINGS: LOWER CHEST: Lungs are hyperinflated and hyperlucent from obstructive disease. Large retr ocardiac hiatal hernia containing the majority of the stomach. LIVER: Normal size. No masses. No dilated ducts. SPLEEN: Normal size. No focal lesions. PANCREAS: No masses. No significant calcifications. No adjacent inflammation or peripancreatic fluid collections. Pancreatic duct not dilated. GALLBLADDER: No identified stones by CT criteria. No inflammatory changes to suggest cholecystitis. ADRENAL GLANDS: No significant masses or asymmetry. RIGHT KIDNEY AND URETER: No solid masses. Right upper pole 4 mm intrarenal nonobstructive stone. No hydronephrosis or hydroureter. LEFT KIDNEY AND URETER: Very tiny, atrophic from chronic vascular insufficiency. AORTA AND VESSELS: Infrarenal abdominal aorta below the renal arteries is chronically occluded, as is a chronically occluded aorto bi-iliac graft. Patient has patent bilateral axillary to femoral graft switched contrast-enhancement. Inferior vena cava filter. Calcified origins of celiac artery, SMA, and right renal artery. RETROPERITONEUM: No retroperitoneal adenopathy, hemorrhage or masses. BOWEL AND PERITONEAL CAVITY: Large amount of stool throughout the colon. No masses or inflammatory changes. No free fluid or peritoneal masses. APPENDIX: Normal. PELVIS: No mass. No free fluid. Normal bladder. Small postmenopausal female pelvic organs are prese nt. ABDOMINAL WALL: No masses. No hernias. BONES: L1 kyphoplasty OTHER: Results discussed with Tigist Agudelo. IMPRESSION: Chronic abdominal aortic occlusion with patent axillary to femoral bypass graft bilatera lly Atrophic left kidney No acute findings TECHNICAL DOCUMENTATION: JOB ID: [id number] Quality ID # [id number]: Final reports with documentation of one or more dose reduction techniques (e.g., Au tomated exposure control, adjustment of the mA and/or kV according to patient size, use of iterative reconstruction technique) 2010 [employer]- All Rights Reserved Reading location - IP/workstation name: [email or web address]
[2018-05-21] MEDS: AMLODIPINE BESYLATE 2.5 MG TABLET PO SCH (09:35)
[2018-05-21] MEDS: PREDNISONE 20 MG TABLET PO SCH (09:35)
[2018-05-21] MEDS: CITALOPRAM HYDROBROMIDE 20 MG TABLET PO SCH (09:35)
[2018-05-21] MEDS: FLUTICASONE/SALMETEROL DISKUS 250-50 MCG/DOSE IH SCH ×2 (09:35→21:40)
[2018-05-21] MEDS: BUSPIRONE HCL 10 MG TABLET PO SCH ×2 (09:35→21:40)
[2018-05-21] MEDS: TIOTROPIUM BROMIDE DPI 5 CAP/KIT (18 MCG/CAP) IH SCH (09:35)
--- NOTE | 2018-05-21 11:36 | PROGRESS NOTE E ---
Progress Note NAME: MJ SHELTON : 1950 AGE: 68Y DATE: 05/20/2018 ROOM: 407 SUBJECTIVE: The patient is a 68-year-old female who came in with COPD exacerbation. Currently appears to be improving. Feeling better. Denies any wheezing, cough with sputum production, chest pain, dizziness, nausea, or vomiting. Denies any abdominal pain tonight. OBJECTIVE: GENERAL: The patient is awake, alert, oriented, afebrile. Not in acute respiratory distress. VITAL SIGNS: Temperature 97.9, T-max 98.6. Heart rate 86, blood pressure 143/88, respirations 16, oxygen saturation is 100% on 4 liters nasal cannula. HEENT: Eyes: No conjunctival pallor. Ears, nose, and throat: No ear drainage or nasal discharge. NECK: Supple. CHEST/LUNGS: No wheezing, no rhonchi. ABDOMEN: Flabby. Positive bowel sounds. Soft, nondistended, nontender. EXTREMITIES: No joint swelling, no cellulitis. LABORATORY: There is no CBC today. ASSESSMENT: 1. CHRONIC OBSTRUCTIVE PULMONARY DISEASE, MOST LIKELY SEVERE. Currently appears to be stable and not in acute exacerbation. No apparent bronchospasm. 2. PULMONARY NODULE RIGHT UPPER LOBE, SPICULATED. Partially aerated. Possibly most likely benign but malignancy cannot be completely excluded at this time. PLAN: 1. Continue Advair 250 one puff daily. 2. Continue Spiriva inhaler. 3. Discontinue IV Solu-Medrol and change to prednisone 20 mg p.o. daily. Consider tapering dose in the next few days. 4. Would recommend doing a PET scan as an outpatient. The patient will require pulmonary clinic followup 3-4 weeks from hospital discharge. DICTATING PHYSICIAN: DARRYL WANG MD,NEERAJ,MPH [id number] PHY#: [id number] ID: [id number] JOB#: [id number] ACCT: [id number] cc: > MTDD
--- NOTE | 2018-05-21 14:03 | PDOC PROGRESS REPORT ---
Subjective Progress Note for:: 05/21/18 Subjective:: The patient is a 68-year-old female with end-stage, oxygen dependent COPD. The patient presented to the emergency room with increasing shortness of breath and cough productive of white sputum. The patient is extremely cachectic. She has been residing with her son in [place] but was traveling to [place] as she is going to now be living with her daughter in the [place] area. In the emergency room she had a CT scan of the chest which revealed a lesion in the right upper lobe was somewhat concerning for possible malignancy. She had several thoracic compression fractures acutely and T5 through T8. The patient was wheezing when she arrived at the emergency room. She was felt to be having a COPD exacerbation. She was started on IV Zithromax, aggressive breathing treatments and IV Solu-Medrol. Pulmonology was consulted. The patient did have a CT scan of the abdomen and pelvis which revealed chronic abdominal aortic occlusion with patent axillary to familiar femoral bypass graft bilaterally. She had issues she was noted to have severe atherosclerotic disease. The patient had a BNP this morning that was obtained late yesterday afternoon which is elevated around 3500. She has a 2D echocardiogram pending at this time. She was seen by Dr. estrada this morning who was transitioned her off of IV Solu-Medrol to p.o. prednisone which he recommends tapering slowly over the next several days. Today when I saw the patient she states she still is extremely short of breath. She states that she got up and ambulated only a short distance and became so acutely short of breath that she had to sit down. She states she also has difficulty laying flat. She states her chest feels tight. She has had no fever or shaking chills. No chest pain or heart palpitations. She does not have much in the way of appetite and states her abdomen feels somewhat bloated and she thinks it is due to the oral contrast that she drank yesterday. She has no urinary complaints. Reason For Visit: COPD EXACERBATION Physical Exam Vital Signs: Temp Pulse Resp BP Pulse Ox 97.6 F 79 17 144/73 H 98 05/21/18 11:22 05/21/18 11:22 05/21/18 11:22 05/21/18 11:22 05/21/18 08:14 Intake & Output 05/20/18 05/21/18 05/22/18 06:59 06:59 06:59 Intake Total 40 338 Output Total 200 Balance 40 138 Weight 27.3 kg 28.9 kg General appearance: PRESENT: other - Extremely cachectic, chronically ill appearing female. She is somewhat short of breath at the time of my visit and looks as if she feels quite poorly Head exam: PRESENT: atraumatic, other - She has bitemporal muscle wasting Mouth exam: PRESENT: moist, tongue midline Neck exam: ABSENT: carotid bruit, JVD, lymphadenopathy, thyromegaly Respiratory exam: PRESENT: crackles - The patient's wheezing has just about resolved. She is diminished bilaterally. She may have some fine crackles in the lower bases bilaterally, decreased breath sounds Cardiovascular exam: PRESENT: RRR. ABSENT: diastolic murmur, rubs, systolic murmur GI/Abdominal exam: PRESENT: normal bowel sounds, soft. ABSENT: distended, guarding, mass, organolmegaly, rebound, tenderness Rectal exam: PRESENT: deferred Extremities exam: PRESENT: full ROM, other - She has muscle wasting in all 4 of her extremities. ABSENT: calf tenderness, clubbing, pedal edema Neurological exam: PRESENT: alert, awake, oriented to person, oriented to place , oriented to time, oriented to situation, CN II-XII grossly intact. ABSENT: motor sensory deficit Psychiatric exam: PRESENT: appropriate affect, normal mood. ABSENT: homicidal ideation, suicidal ideation Skin exam: PRESENT: dry, intact, warm. ABSENT: cyanosis, rash Results Laboratory Results: 05/21/18 05:01 05/21/18 05:01 05/21/18 05/21/18 05:01 05:01 WBC 12.1 H D RBC 4.00 Hgb 8.2 L Hct 27.4 L MCV 69 L MCH 20.5 L MCHC 29.9 L RDW 20.2 H Plt Count 277 Seg Neutrophils % Not Reportable Lymphocytes % Not Reportable Monocytes % Not Reportable Eosinophils % Not Reportable Basophils % Not Reportable Absolute Neutrophils Not Reportable Absolute Lymphocytes Not Reportable Absolute Monocytes Not Reportable Absolute Eosinophils Not Reportable Absolute Basophils Not Reportable Sodium 145.8 H Potassium 5.3 H Chloride 101 Carbon Dioxide 36 H Anion Gap 9 BUN 22 H Creatinine 0.65 Est GFR ( Amer) > 60 Est GFR (Non-Af Amer) > 60 Glucose 93 Calcium 9.5 Magnesium 2.2 Total Bilirubin 0.2 AST 21 ALT 20 Alkaline Phosphatase 63 Total Protein 5.8 L Albumin 3.2 L Impressions: Chest X-Ray 05/18/18 15:17 IMPRESSION: 1 Findings of COPD, unchanged since the prior study dated 2008. 2 Mild prominence of the interstitial markings particularly in the apices-- upper lobes, new finding since the prior study. Prominence of the hilar regions bilaterally may represent pulmonary arteries. Further evaluation with CT chest suggested. Chest CT 05/18/18 16:19 IMPRESSION: Spiculated right apical mass measures 1.2 cm. New since 2008. Extensive emphysema. Compression fractures of approximately T5 and T8 which could be acute. Additional treated fractures. Large hiatal hernia. Abdomen/Pelvis CT 05/20/18 00:00 IMPRESSION: Chronic abdominal aortic occlusion with patent axillary to femoral bypass graft bilaterally Atrophic left kidney No acute findings Assessment & Plan - Diagnosis (1) Acute respiratory failure with hypoxia and hypercapnia Is this a current diagnosis for this admission?: Yes Plan: Secondary to COPD exacerbation. I also cannot rule out heart failure exacerbation as well. She continues to cough up white frothy sputum. She will continue oxygen support and breathing treatments as well as therapy but will be outlined below (2) Lung mass Is this a current diagnosis for this admission?: Yes Plan: She will need follow-up imaging studies as an outpatient. She has no evidence for metastatic disease in the abdomen. She will need a PET CT scan and pulmonology follow-up as an outpatient. (3) COPD exacerbation Is this a current diagnosis for this admission?: Yes Plan: She has been transitioned to p.o. prednisone at this point. Continue breathing treatments and bronchodilators. (4) Acute heart failure Qualifiers: Heart failure type: systolic Qualified Code(s): I50.21 - Acute systolic ( congestive) heart failure Is this a current diagnosis for this admission?: Yes Plan: She reports that she has congestive heart failure. She just moved to the [facility] and we do not have records. I suspect she has systolic congestive heart failure. At this point I believe the patient may be having an acute congestive heart failure exacerbation failure as well. She sounds like she has some crackles in the lower bases. She is coughing up white frothy sputum and she has an elevated BNP. I am going to give her 1 dose of IV Lasix today. She has a 2D echocardiogram pending. She may require cardiology input. (5) Coronary artery disease Is this a current diagnosis for this admission?: Yes Plan: Continue home regimen (6) Thoracic compression fracture Is this a current diagnosis for this admission?: Yes Plan: Continue home regimen of narcotics. She is not complaining of increased pain. (7) CHF (congestive heart failure) Is this a current diagnosis for this admission?: Yes Plan: She reports that she has congestive heart failure. She just moved to the [place] area and we do not have records. I suspect she has diastolic congestive heart failure. At this point in light of all of her other issues am going to hold off on obtaining a 2D echocardiogram. We will try to get records from her physicians in [place]. (8) Atrial fibrillation Is this a current diagnosis for this admission?: Yes Plan: She currently is in a sinus rhythm and rate controlled. Continue Coumadin for anticoagulation (9) Chronic anticoagulation Is this a current diagnosis for this admission?: Yes Plan: Continue Coumadin. Pharmacy is managing her dosing (10) Tobacco dependence Is this a current diagnosis for this admission?: Yes Plan: Certainly it would be in her best interest to quit smoking (11) Anemia Is this a current diagnosis for this admission?: Yes Plan: Stable. Will recheck level in the morning (12) Hyperkalemia Is this a current diagnosis for this admission?: Yes Plan: The patient's potassium level has increased today. She will get a one-time dose of Kayexalate today. (13) Hypernatremia Is this a current diagnosis for this admission?: Yes Plan: Her level is about the same. She will have a chemistry panel in the morning. (14) Chronic pain Is this a current diagnosis for this admission?: Yes Plan: Likely due to compression fractures in her back. Continue home dose of narcotics (15) Opiate dependence, continuous Is this a current diagnosis for this admission?: Yes Plan: Continue home dose of narcotics. She is not complaining of increased pain or asking to have her medications escalated. (16) Full code status Is this a current diagnosis for this admission?: Yes - Time Time Spent with patient: 15-24 minutes - Inpatient Certification Medical Necessity: Significant Comorbidiites Make Outpatient Treatment Too Risky , Need Close Monitoring Due to Risk of Patient Decompensation - Inpatient hospitalization remains necessary. The patient's requiring parenteral antibiotics. She has been transitioned over to oral steroids but really is not any better. I am concerned she may be having a heart failure exacerbation. She needs an echocardiogram today. She is going to be diuresed with IV Lasix. Timing of disposition will be determined by her clinical course, Need for IV Antibiotics, Other
[2018-05-21] MEDS ORDERED: SODIUM POLYSTYRENE SULFONATE 15 GM/60 ML PO ONE (14:30)
[2018-05-21] MEDS ORDERED: FUROSEMIDE INJ/PF 20 MG/2 ML SDV IV ONE (14:30)
[2018-05-21] MEDS: MIRTAZAPINE 15 MG TABLET PO SCH (17:34)
[2018-05-21] MEDS: DONEPEZIL HCL 5 MG TABLET PO SCH (17:34)
[2018-05-21] MEDS: AZITHROMYCIN 250 MG TABLET PO SCH (21:40)
[2018-05-21] MEDS: WARFARIN SODIUM 3 MG TABLET PO SCH (21:40)
[2018-05-22 05:26] LABS: ABSOLUTE LYMPHOCYTES (AUTO) 0.9 10^3/uL (0.5-4.7); ABSOLUTE MONOCYTES (AUTO) 0.6 10^3/uL (0.1-1.4); ABSOLUTE NEUT (AUTO) 4.9 10^3/uL (1.7-8.2); BASOPHILS % (AUTO) 0.2 % (0-2); EOSINOPHILS % (AUTO) 0.1 % (0-6); HEMATOCRIT 27.6 % (36.0-47.0); HEMOGLOBIN 8.3 g/dL (12.0-15.5); LYMPHOCYTES % (AUTO) 14.7 % (13-45); MEAN CORPUSCULAR HEMOGLOBIN 20.6 pg (27.0-33.4); MEAN CORPUSCULAR VOLUME 69 fl (80-97); MONOCYTES % (AUTO) 8.8 % (3-13); PLATELET COUNT 237 10^3/uL (150-450); RED BLOOD COUNT 4.02 10^6/uL (3.72-5.28); RED CELL DISTRIBUTION WIDTH 20.3 % (11.5-14.0); SEGMENTED NEUTROPHILS % (AUTO) 76.2 % (42-78); TOTAL CELLS COUNTED % (AUTO) 100 %; WHITE BLOOD COUNT 6.4 10^3/uL (4.0-10.5)
[2018-05-22 05:46] LABS: BLOOD UREA NITROGEN 26 mg/dL (7-20); CALCIUM 9.3 mg/dL (8.4-10.2); CHLORIDE 99 mmol/L (98-107); GLUCOSE 76 mg/dL (75-110); POTASSIUM 4.7 mmol/L (3.6-5.0); SODIUM 147.9 mmol/L (137-145)
[2018-05-22 05:59] LABS: ANION GAP 1 (5-19)
[2018-05-22 06:00] LABS: CARBON DIOXIDE 48 mmol/L (22-30)
[2018-05-22] MEDS: GABAPENTIN 300 MG CAPSULE PO SCH ×3 (06:06→22:23)
[2018-05-22] MEDS: FERROUS SULFATE 325 MG TABLET PO SCH ×2 (07:47→15:18)
[2018-05-22] MEDS: BUSPIRONE HCL 10 MG TABLET PO SCH ×2 (09:43→22:23)
[2018-05-22] MEDS: CITALOPRAM HYDROBROMIDE 20 MG TABLET PO SCH (09:44)
[2018-05-22] MEDS: FLUTICASONE/SALMETEROL DISKUS 250-50 MCG/DOSE IH SCH ×2 (09:45→22:23)
[2018-05-22] MEDS: PREDNISONE 20 MG TABLET PO SCH (09:45)
[2018-05-22] MEDS: AMLODIPINE BESYLATE 2.5 MG TABLET PO SCH (09:46)
[2018-05-22] MEDS: TIOTROPIUM BROMIDE DPI 5 CAP/KIT (18 MCG/CAP) IH SCH (09:46)
--- NOTE | 2018-05-22 10:08 | XCELERA REPORT ---
[address] [address] Transthoracic Echocardiogram Report Name: MJ SHELTON Age: 68 yrs Gender: Female : 1950 Patient Status: Inpatient Patient Location: [address] [place] [address] Study Date: 05/21/2018 02:24 PM Procedure: A complete two-dimensional transthoracic echocardiogram was performed (2D, M-mode, spectral and color flow Doppler). The study was technically adequate with some images being suboptimal in quality. Reason For Study: chf r/o, elevated BNP Ordering Physician: NIECY CASTRO Performed By: Zoila Chaudhry Interpretation Summary Left ventricular systolic function is low normal. There is normal left ventricular wall thickness. The left ventricle is grossly normal size. LV diastolic function could not be adequately assessed. Wall motion cannot be accurately commented on, but no definite regional wall motion abnormalities noted. The right ventricle is moderately dilated. The right ventricular systolic function is borderline reduced. There is borderline right ventricular hypertrophy. The right atrium is moderately dilated. The left atrial size is normal. There is no mitral valve stenosis. There is a trace amount of mitral regurgitation There is no aortic valve stenosis No aortic regurgitation is present. There is a mild amount of tricuspid regurgitation There is servere pulmonary hypertension by echo Right ventricular systolic pressure is estimated to be elevated at >60mmHg. There is no pericardial effusion. MMode/2D Measurements & Calculations RVDd: 3.0 cm LVIDd: 4.1 cm FS: 39.9 % Ao root diam: 2.7 cm IVSd: 0.92 cm LVIDs: 2.5 cm EDV(Teich): 76.0 ml Ao root area: 5.8 cm2 LVPWd: 0.85 cmESV(Teich): 22.1 ml EF(Teich): 70.9 % LVOT diam: 1.6 cm LVOT area: 2.1 cm2 Doppler Measurements & Calculations MV E max rodrigo: MV dec slope: Ao V2 max: LV V1 max P.3 cm/sec 145.6 cm/sec 4.6 mmHg MV A max rodrigo: 512.2 cm/sec2 Ao max PG: LV V1 max: 91.7 cm/sec MV dec time: 8.5 mmHg 107.6 cm/sec MV E/A: 0.94 0.17 sec ABDIEL(V,D): 1.6 cm2 PA V2 max: PI end-d rodrigo: TR max rodrigo: 110.7 cm/sec 234.2 cm/sec 369.1 cm/sec PA max PG: TR max P.9 mmHg 54.7 mmHg Left Ventricle The left ventricle is grossly normal size. There is normal left ventricular wall thickness. Left ventricular systolic function is low normal. LV diastolic function could not be adequately assessed. Wall motion cannot be accurately commented on, but no definite regional wall motion abnormalities noted. Right Ventricle The right ventricle is moderately dilated. There is borderline right ventricular hypertrophy. The right ventricular systolic function is borderline reduced. Atria The right atrium is moderately dilated. The left atrial size is normal. Interarterial septum not well visualized and not well dopplered. Cannot comment on ASD/PFO presence. Mitral Valve The mitral valve is grossly normal. There is no mitral valve stenosis. There is a trace amount of mitral regurgitation. Aortic Valve The aortic valve is grossly normal. There is no aortic valve stenosis. No aortic regurgitation is present. Tricuspid Valve The tricuspid valve is not well visualized, but is grossly normal. There is no tricuspid stenosis. There is a mild amount of tricuspid regurgitation. There is servere pulmonary hypertension by echo. Right ventricular systolic pressure is estimated to be elevated at >60mmHg. Pulmonic Valve The pulmonic valve is not well seen, but is grossly normal. There is no pulmonic valvular stenosis. There is a mild amount of pulmonic regurgitation. Great Vessels The aortic root is not well visualized but is probably normal size. The inferior vena cava appeared normal and decreased < 50% with respiration (RAP 10-15 mmHg). Effusions There is no pericardial effusion. : NIECY CASTRO > Lory Vasques
[2018-05-22] MEDS: HYDROCODONE/ACETAMINOPHEN 5-325 MG TABLET PO PRN (12:17)
[2018-05-22] MEDS: DONEPEZIL HCL 5 MG TABLET PO SCH (17:06)
[2018-05-22] MEDS: MIRTAZAPINE 15 MG TABLET PO SCH (17:06)
[2018-05-22] MEDS ORDERED: VANCOMYCIN HCL 0 MG in DEXTROSE 5%-WATER 250 ML IV NR (19:30)
--- NOTE | 2018-05-22 20:06 | PDOC PROGRESS REPORT ---
Subjective Progress Note for:: 05/22/18 Subjective:: Patient is feeling better overall. Breathing is improving rest. With ambulating she is still severely shortness of breath. No chest pain. Eating fine. No constipation diarrhea abdominal pain nausea or vomiting. No dysuria. No fevers or chills. Reason For Visit: COPD EXACERBATION Physical Exam Vital Signs: Temp Pulse Resp BP Pulse Ox 98.3 F 79 18 145/79 H 97 05/22/18 15:23 05/22/18 15:23 05/22/18 15:23 05/22/18 15:23 05/22/18 15:23 Intake & Output 05/21/18 05/22/18 05/23/18 06:59 06:59 06:59 Intake Total 338 621 704 Output Total 200 1100 600 Balance 138 -479 104 Weight 28.9 kg 27.9 kg General appearance: PRESENT: no acute distress, cooperative, thin Head exam: PRESENT: atraumatic, normocephalic, other - biTemporal wasting Eye exam: ABSENT: conjunctival injection, scleral icterus Ear exam: PRESENT: normal external ear exam Mouth exam: PRESENT: moist, tongue midline Respiratory exam: PRESENT: decreased breath sounds, rales, unlabored. ABSENT: wheezes Cardiovascular exam: PRESENT: RRR. ABSENT: diastolic murmur, systolic murmur Pulses: PRESENT: normal radial pulses GI/Abdominal exam: PRESENT: normal bowel sounds, soft. ABSENT: distended, tenderness Rectal exam: PRESENT: deferred Extremities exam: PRESENT: other - Sarco rosalva of extremities. ABSENT: pedal edema Neurological exam: PRESENT: alert, awake, oriented to person, oriented to place , oriented to situation, CN II-XII grossly intact Psychiatric exam: PRESENT: appropriate affect. ABSENT: anxious Skin exam: PRESENT: dry, intact, warm Results Laboratory Results: 05/22/18 04:51 05/22/18 04:51 05/22/18 05/22/18 04:51 04:51 WBC 6.4 RBC 4.02 Hgb 8.3 L Hct 27.6 L MCV 69 L MCH 20.6 L MCHC 30.0 L RDW 20.3 H Plt Count 237 Seg Neutrophils % 76.2 Lymphocytes % 14.7 Monocytes % 8.8 Eosinophils % 0.1 Basophils % 0.2 Absolute Neutrophils 4.9 Absolute Lymphocytes 0.9 Absolute Monocytes 0.6 Absolute Eosinophils 0.0 Absolute Basophils 0.0 Sodium 147.9 H Potassium 4.7 Chloride 99 Carbon Dioxide 48 H* D Anion Gap 1 L BUN 26 H Creatinine 0.73 Est GFR ( Amer) > 60 Est GFR (Non-Af Amer) > 60 Glucose 76 Calcium 9.3 Magnesium 2.3 05/19/18 18:30 Sputum Gram Stain - Final 05/19/18 18:30 Sputum Sputum Culture - Final Mrsa (Meth Resis Staph Aureus) Normal Katharina Impressions: Chest X-Ray 05/18/18 15:17 IMPRESSION: 1 Findings of COPD, unchanged since the prior study dated 2008. 2 Mild prominence of the interstitial markings particularly in the apices-- upper lobes, new finding since the prior study. Prominence of the hilar regions bilaterally may represent pulmonary arteries. Further evaluation with CT chest suggested. Chest CT 05/18/18 16:19 IMPRESSION: Spiculated right apical mass measures 1.2 cm. New since 2008. Extensive emphysema. Compression fractures of approximately T5 and T8 which could be acute. Additional treated fractures. Large hiatal hernia. Abdomen/Pelvis CT 05/20/18 00:00 IMPRESSION: Chronic abdominal aortic occlusion with patent axillary to femoral bypass graft bilaterally Atrophic left kidney No acute findings Assessment & Plan - Diagnosis (1) Lung mass Is this a current diagnosis for this admission?: Yes Plan: Patient aware. She will need follow-up imaging as an outpatient and PET scan is recommended. No evidence of metastatic disease in the abdomen per scanning. (2) Acute respiratory failure with hypoxia and hypercapnia Is this a current diagnosis for this admission?: Yes Plan: Patient is having a COPD exacerbation. Continue O2, bronchodilators and antibiotics. Continue prednisone. (3) Atrial fibrillation Qualifiers: Atrial fibrillation type: chronic Qualified Code(s): I48.2 - Chronic atrial fibrillation Is this a current diagnosis for this admission?: Yes Plan: Rate controlled. Continue warfarin for anticoagulation. (4) CHF (congestive heart failure) Qualifiers: Heart failure chronicity: acute Is this a current diagnosis for this admission?: Yes Plan: Echocardiogram was suboptimal study. She tells us that she does have heart failure and has just moved to the [place] area we do not have records. Consider referral to cake icer versus PCP as an outpatient. She seems stable from this perspective now. She received a dose of Lasix yesterday. (5) COPD exacerbation Is this a current diagnosis for this admission?: Yes Plan: Continue prednisone, bronchodilators, oxygen, antibiotics. Improving overall. (6) Chronic anticoagulation Is this a current diagnosis for this admission?: Yes Plan: Continue her warfarin at current dosing. She has not had an INR in several days and so I have ordered that. (7) Tobacco dependence Is this a current diagnosis for this admission?: Yes Plan: We will continue with tobacco cessation counseling. (8) Compression fracture Is this a current diagnosis for this admission?: Yes Plan: We will continue the patient's opioids. She has known compression fractures. We will continue to assess and see if physical therapy needed prior to discharge. - Time Time Spent with patient: 25-34 minutes Medications reviewed and adjusted accordingly: Yes - Inpatient Certification Based on my medical assessment, after consideration of the patient's comorbidities, presenting symptoms, or acuity I expect that the services needed warrant INPATIENT care.: Yes I certify that my determination is in accordance with my understanding of Medicare's requirements for reasonable and necessary INPATIENT services [42 CFR 412.3e].: Yes Medical Necessity: Need Close Monitoring Due to Risk of Patient Decompensation, Need for Nebulizer Therapy and Monitoring of Response
[2018-05-22 20:41] LABS: BLOOD UREA NITROGEN 24 mg/dL (7-20); CALCIUM 9.2 mg/dL (8.4-10.2); CHLORIDE 98 mmol/L (98-107); GLUCOSE 153 mg/dL (75-110); SODIUM 146.2 mmol/L (137-145)
[2018-05-22 20:42] LABS: PROTHROMBIN TIME 17.8 SEC (11.4-15.4)
[2018-05-22 20:55] LABS: ANION GAP 7 (5-19)
[2018-05-22 20:56] LABS: CARBON DIOXIDE 41 mmol/L (22-30)
[2018-05-22] MEDS ORDERED: DEXTROSE 5% IV SCH (22:00)
[2018-05-22] MEDS ORDERED: WATER IV SCH (22:00)
[2018-05-22] MEDS ORDERED: VANCOMYCIN HCL IV SCH (22:00)
[2018-05-22] MEDS: AZITHROMYCIN 250 MG TABLET PO SCH (22:23)
[2018-05-22] MEDS: WARFARIN SODIUM 3 MG TABLET PO SCH (22:23)
[2018-05-23] MEDS: GABAPENTIN 300 MG CAPSULE PO SCH ×3 (06:49→22:32)
[2018-05-23] MEDS: FERROUS SULFATE 325 MG TABLET PO SCH ×2 (07:28→15:04)
[2018-05-23] MEDS: HYDROCODONE/ACETAMINOPHEN 5-325 MG TABLET PO PRN ×2 (09:30→16:31)
[2018-05-23] MEDS: CITALOPRAM HYDROBROMIDE 20 MG TABLET PO SCH (09:44)
[2018-05-23] MEDS: PREDNISONE 20 MG TABLET PO SCH (09:45)
[2018-05-23] MEDS: BUSPIRONE HCL 10 MG TABLET PO SCH ×2 (09:45→22:32)
[2018-05-23] MEDS: FLUTICASONE/SALMETEROL DISKUS 250-50 MCG/DOSE IH SCH ×2 (09:45→22:32)
[2018-05-23] MEDS: AMLODIPINE BESYLATE 2.5 MG TABLET PO SCH (09:46)
[2018-05-23] MEDS: TIOTROPIUM BROMIDE DPI 5 CAP/KIT (18 MCG/CAP) IH SCH (09:47)
[2018-05-23 15:05] LABS: INTERNATIONAL RATION (INR) 1.11; PROTHROMBIN TIME 14.9 SEC (11.4-15.4)
[2018-05-23] MEDS: MIRTAZAPINE 15 MG TABLET PO SCH (17:11)
[2018-05-23] MEDS: DONEPEZIL HCL 5 MG TABLET PO SCH (17:11)
--- NOTE | 2018-05-23 19:30 | PDOC PROGRESS REPORT ---
Subjective Progress Note for:: 05/23/18 Subjective:: Patient is feeling better today still with dyspnea. Still coughing up a little bit of phlegm. Shortness of breath improved but still significantly short of breath with movement. Not back to baseline. No fevers or chills. She really wants to have a cigarette but asks if it is okay if she eats candy instead. No constipation or diarrhea. No dysuria. No chest pain. Reason For Visit: COPD EXACERBATION Physical Exam Vital Signs: Temp Pulse Resp BP Pulse Ox 98.0 F 73 18 143/60 H 96 05/23/18 08:36 05/23/18 08:36 05/23/18 08:36 05/23/18 08:36 05/23/18 08:36 Intake & Output 05/22/18 05/23/18 05/24/18 06:59 06:59 06:59 Intake Total 621 1737 Output Total 1100 600 Balance -479 1137 Weight 27.9 kg 28.7 kg General appearance: PRESENT: no acute distress, cooperative, thin Head exam: PRESENT: atraumatic, normocephalic Eye exam: ABSENT: conjunctival injection, scleral icterus Ear exam: PRESENT: normal external ear exam Mouth exam: PRESENT: moist Respiratory exam: PRESENT: decreased breath sounds, unlabored. ABSENT: rales, rhonchi, wheezes Cardiovascular exam: PRESENT: RRR. ABSENT: systolic murmur Pulses: PRESENT: normal radial pulses GI/Abdominal exam: PRESENT: normal bowel sounds, soft. ABSENT: distended, firm , guarding, tenderness Gentrourinary exam: ABSENT: indwelling catheter Extremities exam: PRESENT: pedal edema Neurological exam: PRESENT: alert, awake, oriented to person, oriented to place Psychiatric exam: PRESENT: appropriate affect. ABSENT: anxious Skin exam: PRESENT: dry, intact, warm Results Laboratory Results: 05/22/18 04:51 05/22/18 20:10 05/22/18 20:10 Sodium 146.2 H Potassium 4.0 Chloride 98 Carbon Dioxide 41 H* Anion Gap 7 BUN 24 H Creatinine 0.65 Est GFR ( Amer) > 60 Est GFR (Non-Af Amer) > 60 Glucose 153 H Calcium 9.2 Impressions: Chest X-Ray 05/18/18 15:17 IMPRESSION: 1 Findings of COPD, unchanged since the prior study dated 2008. 2 Mild prominence of the interstitial markings particularly in the apices-- upper lobes, new finding since the prior study. Prominence of the hilar regions bilaterally may represent pulmonary arteries. Further evaluation with CT chest suggested. Chest CT 05/18/18 16:19 IMPRESSION: Spiculated right apical mass measures 1.2 cm. New since 2008. Extensive emphysema. Compression fractures of approximately T5 and T8 which could be acute. Additional treated fractures. Large hiatal hernia. Abdomen/Pelvis CT 05/20/18 00:00 IMPRESSION: Chronic abdominal aortic occlusion with patent axillary to femoral bypass graft bilaterally Atrophic left kidney No acute findings Assessment & Plan - Diagnosis (1) MRSA pneumonia Is this a current diagnosis for this admission?: Yes Plan: Is growing community-acquired MRSA in her sputum. Sensitive to tetracycline. Today I stopped azithromycin and stopped vancomycin and started her on doxycycline 100 mg p.o. twice daily. Will monitor closely. (2) Lung mass Is this a current diagnosis for this admission?: Yes Plan: spiculated lung mass, new since 2008, pt aware, she will need out pt work up. (3) Acute respiratory failure with hypoxia and hypercapnia Is this a current diagnosis for this admission?: Yes Plan: Patient has MRSA pneumonia, immediately acquired. She also has COPD with exacerbation. We will continue to treat these things she is back to her baseline oxygen requirement. Hopeful for discharge in the next day or so. (4) Atrial fibrillation Qualifiers: Atrial fibrillation type: chronic Qualified Code(s): I48.2 - Chronic atrial fibrillation Is this a current diagnosis for this admission?: Yes Plan: Stable on her antiarrhythmic, continue her Coumadin and monitor INR. Patient has been on warfarin 3 mg nightly. Her INR today is 1.1. I am adding therapeutic Lovenox at 30 mg q. every 12 hours and will continue her warfarin at 4 mg daily. Will recheck INR in the morning. (5) CHF (congestive heart failure) Qualifiers: Heart failure chronicity: acute Is this a current diagnosis for this admission?: Yes (6) COPD exacerbation Is this a current diagnosis for this admission?: Yes Plan: Continue current care. Patient improving slowly. (7) Chronic anticoagulation Is this a current diagnosis for this admission?: Yes Plan: See Chelo gorman above. (8) Tobacco dependence Is this a current diagnosis for this admission?: Yes Plan: Edita smoking brings her significant pleasure. DePending on her prognosis, if she does have lung cancer in fact, it may not be useful to encourage her to quit smoking. Will further discuss prior to discharge. (9) Compression fracture Is this a current diagnosis for this admission?: Yes Plan: Patient's compression fractures causing significant pain. I have f increased her C code on dosing from every 8 to every 6 hours as needed pain. - Time Time Spent with patient: 25-34 minutes Medications reviewed and adjusted accordingly: Yes - Inpatient Certification Based on my medical assessment, after consideration of the patient's comorbidities, presenting symptoms, or acuity I expect that the services needed warrant INPATIENT care.: Yes I certify that my determination is in accordance with my understanding of Medicare's requirements for reasonable and necessary INPATIENT services [42 CFR 412.3e].: Yes Medical Necessity: Need Close Monitoring Due to Risk of Patient Decompensation, Risk of Complication if Not Cared For in Hospital
[2018-05-23] MEDS ORDERED: WARFARIN SODIUM 3 MG TABLET PO SCH (22:00)
[2018-05-23] MEDS: ENOXAPARIN SODIUM INJ 30 MG/0.3 ML DISP.SYRIN SUBCUT SCH (22:22)
[2018-05-23] MEDS: DOXYCYCLINE HYCLATE 100 MG TABLET PO SCH (22:32)
[2018-05-23] MEDS: WARFARIN SODIUM 4 MG TABLET PO SCH (22:32)
[2018-05-24] MEDS: GABAPENTIN 300 MG CAPSULE PO SCH ×3 (06:40→22:28)
[2018-05-24 07:08] LABS: HEMATOCRIT 27.8 % (36.0-47.0); HEMOGLOBIN 8.3 g/dL (12.0-15.5); MEAN CORPUSCULAR HEMOGLOBIN 21.1 pg (27.0-33.4); MEAN CORPUSCULAR HGB CONC 29.9 g/dL (32.0-36.0); MEAN CORPUSCULAR VOLUME 71 fl (80-97); PLATELET COUNT 200 10^3/uL (150-450); RED BLOOD COUNT 3.94 10^6/uL (3.72-5.28); RED CELL DISTRIBUTION WIDTH 21.1 % (11.5-14.0)
[2018-05-24 07:31] LABS: BLOOD UREA NITROGEN 21 mg/dL (7-20); CALCIUM 8.9 mg/dL (8.4-10.2); CHLORIDE 100 mmol/L (98-107); GLUCOSE 74 mg/dL (75-110); POTASSIUM 4.3 mmol/L (3.6-5.0); SODIUM 144.7 mmol/L (137-145)
[2018-05-24 07:43] LABS: ANION GAP 6 (5-19); CARBON DIOXIDE 39 mmol/L (22-30)
[2018-05-24] MEDS: ENOXAPARIN SODIUM INJ 30 MG/0.3 ML DISP.SYRIN SUBCUT SCH ×2 (10:58→22:29)
[2018-05-24] MEDS: FLUTICASONE/SALMETEROL DISKUS 250-50 MCG/DOSE IH SCH ×2 (10:58→22:28)
[2018-05-24] MEDS: BUSPIRONE HCL 10 MG TABLET PO SCH ×2 (10:58→22:29)
[2018-05-24] MEDS: CITALOPRAM HYDROBROMIDE 20 MG TABLET PO SCH (10:58)
[2018-05-24] MEDS: PREDNISONE 20 MG TABLET PO SCH (10:58)
[2018-05-24] MEDS: DOXYCYCLINE HYCLATE 100 MG TABLET PO SCH ×2 (11:02→22:29)
[2018-05-24] MEDS: AMLODIPINE BESYLATE 2.5 MG TABLET PO SCH (11:03)
[2018-05-24] MEDS: HYDROCODONE/ACETAMINOPHEN 5-325 MG TABLET PO PRN ×2 (11:05→17:12)
[2018-05-24 13:37] LABS: INTERNATIONAL RATION (INR) 1.26; PROTHROMBIN TIME 16.4 SEC (11.4-15.4)
[2018-05-24] MEDS: TIOTROPIUM BROMIDE DPI 5 CAP/KIT (18 MCG/CAP) IH SCH (16:00)
[2018-05-24] MEDS: DONEPEZIL HCL 5 MG TABLET PO SCH (17:12)
[2018-05-24] MEDS: MIRTAZAPINE 15 MG TABLET PO SCH (17:42)
--- NOTE | 2018-05-24 19:41 | PDOC PROGRESS REPORT ---
Subjective Progress Note for:: 05/24/18 Subjective:: Patient feels pretty well today. No chest pain. Persistent shortness of breath which is slowly improving. She thinks she is overall better. We discussed at length her low INR and the need for anticoagulation with Lovenox and she agrees. We discussed the risks of anticoagulation and she is not sure that she wants to continue accepting these risks. But she did not make any changes today. She is eating and drinking well. Her energy level is pretty good. No constipation or diarrhea. No dysuria. Reason For Visit: COPD EXACERBATION Physical Exam Vital Signs: Temp Pulse Resp BP Pulse Ox 98.7 F 93 20 155/86 H 98 05/24/18 16:14 05/24/18 16:14 05/24/18 16:14 05/24/18 16:14 05/24/18 16:14 Intake & Output 05/23/18 05/24/18 05/25/18 06:59 06:59 06:59 Intake Total 1737 702 933 Output Total 600 Balance 1137 702 933 Weight 28.7 kg 28.7 kg General appearance: PRESENT: no acute distress, thin Eye exam: ABSENT: conjunctival injection, scleral icterus Ear exam: PRESENT: normal external ear exam Respiratory exam: PRESENT: decreased breath sounds, unlabored, wheezes, other - Very poor air movement today. ABSENT: rales, rhonchi Cardiovascular exam: PRESENT: RRR GI/Abdominal exam: PRESENT: normal bowel sounds, soft. ABSENT: distended, tenderness Rectal exam: PRESENT: deferred Extremities exam: PRESENT: other - Cachexia. ABSENT: pedal edema Neurological exam: PRESENT: alert, awake, oriented to person, oriented to place , oriented to situation, CN II-XII grossly intact Psychiatric exam: PRESENT: appropriate affect. ABSENT: anxious Skin exam: PRESENT: dry, intact, warm Results Laboratory Results: 05/24/18 06:31 05/24/18 06:31 05/24/18 05/24/18 06:31 06:31 WBC 6.0 RBC 3.94 Hgb 8.3 L Hct 27.8 L MCV 71 L MCH 21.1 L MCHC 29.9 L RDW 21.1 H Plt Count 200 Sodium 144.7 Potassium 4.3 Chloride 100 Carbon Dioxide 39 H Anion Gap 6 BUN 21 H Creatinine 0.60 Est GFR ( Amer) > 60 Est GFR (Non-Af Amer) > 60 Glucose 74 L Calcium 8.9 Impressions: Chest X-Ray 05/18/18 15:17 IMPRESSION: 1 Findings of COPD, unchanged since the prior study dated 2008. 2 Mild prominence of the interstitial markings particularly in the apices-- upper lobes, new finding since the prior study. Prominence of the hilar regions bilaterally may represent pulmonary arteries. Further evaluation with CT chest suggested. Chest CT 05/18/18 16:19 IMPRESSION: Spiculated right apical mass measures 1.2 cm. New since 2008. Extensive emphysema. Compression fractures of approximately T5 and T8 which could be acute. Additional treated fractures. Large hiatal hernia. Abdomen/Pelvis CT 05/20/18 00:00 IMPRESSION: Chronic abdominal aortic occlusion with patent axillary to femoral bypass graft bilaterally Atrophic left kidney No acute findings Assessment & Plan - Diagnosis (1) MRSA pneumonia Is this a current diagnosis for this admission?: Yes Plan: She feeling a lot better. Yesterday she was transitioned to doxycycline and she should be discharged with plan to complete a complete course of doxy for the MRSA pneumonia. (2) Lung mass Is this a current diagnosis for this admission?: Yes Plan: Spiculated lung mass, new finding, patient aware. She is deciding whether or not she wants workup for this but will discuss this with her novelty maker as an outpatient. Discussed that this could be the reason for her cachexia and weight loss. (3) Acute respiratory failure with hypoxia and hypercapnia Is this a current diagnosis for this admission?: Yes Plan: Overall improving. She will be discharged with home O2.. (4) Atrial fibrillation Qualifiers: Atrial fibrillation type: chronic Qualified Code(s): I48.2 - Chronic atrial fibrillation Is this a current diagnosis for this admission?: Yes Plan: Stable, continue antiarrhythmic and warfarin. (5) CHF (congestive heart failure) Qualifiers: Heart failure chronicity: acute Is this a current diagnosis for this admission?: Yes Plan: Stable. No changes. No evidence of exacerbation. (6) COPD exacerbation Is this a current diagnosis for this admission?: Yes Plan: M proving from this perspective. She will continue on her bronchodilators, prednisone 20 mg daily with no other changes being made to her regimen today. (7) Chronic anticoagulation Is this a current diagnosis for this admission?: Yes Plan: Patient is on warfarin for anti-coagulation in the setting of A. fib. She was initially placed on 3 mg of warfarin daily. Her INR dropped to the normal range her range is 2-3. I have started her on Lovenox 1 mg per Kg every 12 hours and have increased the dose of her warfarin to 4 mg, she states that she thinks she is on 6 at home but she is not sure. Her friend bottle that we have here says 4 mg. Her INR is starting to increase. Will be checked daily. She and I discussed at length the complication of bleeding related to warfarin use. Of note, the patient tells me today that she takes Plavix daily. I have asked the pharmacy to look at her medications that we have here in the hospital and do a new reconciliation. They did that and there is no Plavix and her medications and so I will not start her on the Plavix. (8) Tobacco dependence Is this a current diagnosis for this admission?: Yes Plan: She enjoys smoking, she does not want to quit (9) Compression fracture Is this a current diagnosis for this admission?: Yes Plan: Pain well controlled with current dose of Maxie, no changes. (10) Peripheral arterial disease Is this a current diagnosis for this admission?: Yes Plan: Patient tells me she is on Plavix for this but Plavix is not in her medications. I have asked the pharmacy to check and we do not think she is actually on Plavix. We may need to ask her to get information from her daughter. She recently moved to the area and has not been set up with a primary care doc so it is hard to tell exactly what her medications are. - Time Time Spent with patient: 25-34 minutes Medications reviewed and adjusted accordingly: Yes Anticipated discharge: Home - Inpatient Certification Based on my medical assessment, after consideration of the patient's comorbidities, presenting symptoms, or acuity I expect that the services needed warrant INPATIENT care.: Yes I certify that my determination is in accordance with my understanding of Medicare's requirements for reasonable and necessary INPATIENT services [42 CFR 412.3e].: Yes Medical Necessity: Need Close Monitoring Due to Risk of Patient Decompensation, Need For Continuous Telemetry Monitoring, Risk of Complication if Not Cared For in Hospital - Plan Summary Plan Summary: Once patient's INR is therapeutic we can get her discharged home, possibly discharge her with Lovenox for several days but with her dyspnea I think it is prudent to keep her in the hospital for a few more days anyway. She is aware that she has a spiculated lung mass that will need further workup if she desires. We have been unable to confirm that she is on Plavix so that has not been started. So, even though her CODE STATUS is full she is considering DNR/ DNI because she reports that really she thinks she would want to a natural if it was her time . She is reconsidering her CODE STATUS and wants to discuss it with her family and her doctors.
[2018-05-24] MEDS ORDERED: MIRTAZAPINE 15 MG TABLET PO SCH (22:00)
[2018-05-24] MEDS: WARFARIN SODIUM 4 MG TABLET PO SCH (22:29)
[2018-05-25] MEDS: GABAPENTIN 300 MG CAPSULE PO SCH ×2 (05:12→14:56)
[2018-05-25] MEDS: AMLODIPINE BESYLATE 2.5 MG TABLET PO SCH (09:26)
[2018-05-25] MEDS: BUSPIRONE HCL 10 MG TABLET PO SCH (09:27)
[2018-05-25] MEDS: DOXYCYCLINE HYCLATE 100 MG TABLET PO SCH (09:27)
[2018-05-25] MEDS: HYDROCODONE/ACETAMINOPHEN 5-325 MG TABLET PO PRN (09:28)
[2018-05-25] MEDS: CITALOPRAM HYDROBROMIDE 20 MG TABLET PO SCH (09:28)
[2018-05-25] MEDS: ENOXAPARIN SODIUM INJ 30 MG/0.3 ML DISP.SYRIN SUBCUT SCH (09:29)
[2018-05-25] MEDS: PREDNISONE 20 MG TABLET PO SCH (09:29)
[2018-05-25] MEDS: FLUTICASONE/SALMETEROL DISKUS 250-50 MCG/DOSE IH SCH (09:30)
[2018-05-25] MEDS: TIOTROPIUM BROMIDE DPI 5 CAP/KIT (18 MCG/CAP) IH SCH (09:30)
[2018-05-25 11:13] LABS: ABSOLUTE EOSINOPHILS # (AUTO) 0.1 10^3/uL (0.0-0.6); ABSOLUTE LYMPHOCYTES (AUTO) 0.8 10^3/uL (0.5-4.7); ABSOLUTE MONOCYTES (AUTO) 0.4 10^3/uL (0.1-1.4); ABSOLUTE NEUT (AUTO) 3.6 10^3/uL (1.7-8.2); BASOPHILS % (AUTO) 0.2 % (0-2); EOSINOPHILS % (AUTO) 1.9 % (0-6); HEMATOCRIT 28.7 % (36.0-47.0); HEMOGLOBIN 8.4 g/dL (12.0-15.5); LYMPHOCYTES % (AUTO) 16.5 % (13-45); MEAN CORPUSCULAR HEMOGLOBIN 20.8 pg (27.0-33.4); MEAN CORPUSCULAR HGB CONC 29.4 g/dL (32.0-36.0); MEAN CORPUSCULAR VOLUME 71 fl (80-97); MONOCYTES % (AUTO) 8.9 % (3-13); PLATELET COUNT 199 10^3/uL (150-450); RED BLOOD COUNT 4.04 10^6/uL (3.72-5.28); RED CELL DISTRIBUTION WIDTH 21.2 % (11.5-14.0); SEGMENTED NEUTROPHILS % (AUTO) 72.5 % (42-78); TOTAL CELLS COUNTED % (AUTO) 100 %
[2018-05-25 11:39] LABS: INTERNATIONAL RATION (INR) 1.27; PROTHROMBIN TIME 16.6 SEC (11.4-15.4)
--- NOTE | 2018-05-25 14:06 | PDOC DISCHARGE SUMMARY ---
General - Admit/Disc Date/PCP Admission Date/Primary Care Provider: 05/19/18 12:43 Discharge Date: 05/25/18 - Discharge Diagnosis (1) MRSA pneumonia Is this a current diagnosis for this admission?: Yes (2) Lung mass Is this a current diagnosis for this admission?: Yes (3) Acute respiratory failure with hypoxia and hypercapnia Is this a current diagnosis for this admission?: Yes (4) Atrial fibrillation Is this a current diagnosis for this admission?: Yes (5) CHF (congestive heart failure) Is this a current diagnosis for this admission?: Yes (6) COPD exacerbation Is this a current diagnosis for this admission?: Yes (7) Tobacco abuse Is this a current diagnosis for this admission?: Yes (8) Compression fracture Is this a current diagnosis for this admission?: Yes (9) Peripheral arterial disease Is this a current diagnosis for this admission?: Yes - Additional Information Discharge Diet: Regular Discharge Activity: Activity As Tolerated, Balance Activity w/Rest, Energy Conservation, Weigh Daily Prescriptions: Doxycycline Hyclate [Vibramycin 100 mg Tablet] 100 mg PO Q12 5 Days #10 tablet Prednisone [Deltasone 20 mg Tablet] 20 mg PO DAILY 5 Days #5 tablet Home Medications: Amlodipine Besylate [Norvasc 5 mg Tablet] 2.5 mg PO DAILY 05/18/18 Buspirone HCl [Buspar 5 mg Tablet] 5 mg PO Q12 05/18/18 Citalopram Hydrobromide [Celexa 10 mg Tablet] 10 mg PO DAILY 05/18/18 Donepezil HCl [Aricept 5 mg Tablet] 5 mg PO QPM 05/18/18 Ferrous Sulfate [Feosol 325 mg Tablet] 325 mg PO BID 05/18/18 Fluticasone Propionate [Flovent HFA 220 mcg MDI] 2 puff IH Q12 05/18/18 Gabapentin [Neurontin 300 mg Capsule] 300 mg PO Q8 05/18/18 Hydrocodone/Acetaminophen [Hydrocodone-Acetamin 5-325 mg] 1 tab PO Q8HP PRN Mirtazapine [Remeron 15 mg Tablet] 15 mg PO QPM 05/18/18 Tiotropium Jolon [Spiriva Handihaler 5 Cap/Kit (18 Mcg/Cap)] 1 puff IH DAILY 05/18/18 Warfarin Sodium [Coumadin 4 mg Tablet] 4 mg PO QPM 05/18/18 Acetaminophen [Tylenol 325 mg Tablet] 650 mg PO Q6HP PRN tablet 05/25/18 Doxycycline Hyclate [Vibramycin 100 mg Tablet] 100 mg PO Q12 5 Days #10 tablet 05/25/18 Nicotine [Nicoderm 14 mg/24 Hr Transdermal Patch] 1 each TD DAILYP PRN patch.td24 05/25/18 Prednisone [Deltasone 20 mg Tablet] 20 mg PO DAILY 5 Days #5 tablet 05/25/18 History of Present Illness History of Present Illness: Patient was admitted after presentation as in HPI by Dr. Noriega below: "MJ SHELTON is a 68 year old female, with history of end stage COPD on concentrated oxygen at home, comes to the emergency department complaining of progressive shortness of breath for the last 3 days, cough, with whitish sputum and wheezing, clammy sensation. Today it was very hard to breathe at home, nebulizer treatments did not work. The patient is still unfortunately a smoker , she has not been smoking for the last 2 days secondary to her symptoms. Patient also has had diarrhea for the last 3 days with 2 soft bowel nonbloody movements yesterday and today 1 bowel movement. Denies fever, headache, chest pain, abdominal pain, urinary symptoms. Denies weight loss, patient looks cachectic. Patient just moved from [place] last week to live with her daughter. In the ED CT of the chest was done which unfortunately came back positive for right upper lung mass; several compression fracture, apparently acute in T5-T8. " Hospital Course Hospital Course: Patient was admitted and managed as follows: (1) MRSA pneumonia Is this a current diagnosis for this admission?: Yes Plan: Sputum grew community-acquired MRSA, sensitive to tetracycline. She was initially treated with azithromycin and vancomycin and these were changed to doxycycline 100 mg p.o. twice daily. She feeling a lot better. She will be discharged to complete to complete doxycycline course as outpatient. (2) Lung mass Is this a current diagnosis for this admission?: Yes Plan: Spiculated lung mass was found on CT, new finding, patient aware. She wishes to discuss this with her salad bar clerk as an outpatient further evaluation workup. She is aware that that this could be the reason for her cachexia and weight loss. (3) Acute respiratory failure with hypoxia and hypercapnia Is this a current diagnosis for this admission?: Yes Plan: Overall improving. She will be discharged with home O2.. (4) Atrial fibrillation Qualifiers: Atrial fibrillation type: chronic Qualified Code(s): I48.2 - Chronic atrial fibrillation Is this a current diagnosis for this admission?: Yes Plan: Stable, continue antiarrhythmic and warfarin. (5) CHF (congestive heart failure) Qualifiers: Heart failure chronicity: acute Is this a current diagnosis for this admission?: Yes Plan: Stable. No changes. No evidence of exacerbation. (6) COPD exacerbation Is this a current diagnosis for this admission?: Yes Plan: Improved. Continue on her bronchodilators, prednisone 20 mg daily. (7) Tobacco dependence Is this a current diagnosis for this admission?: Yes Plan: She enjoys smoking, she does not want to quit. Risks and benefits explained and she verbalized understanding. (8) Compression fracture Is this a current diagnosis for this admission?: Yes Plan: Pain well controlled with current dose of Mcgrew. (9) Peripheral arterial disease Is this a current diagnosis for this admission?: Yes Plan: Continue management for now, follow-up with PCP. Physical Exam Vital Signs: Temp Pulse Resp BP Pulse Ox 98.5 F 83 18 124/57 L 99 05/25/18 11:32 05/25/18 11:32 05/25/18 11:32 05/25/18 11:32 05/25/18 11:32 Intake & Output 05/24/18 05/25/18 05/26/18 06:59 06:59 06:59 Intake Total 702 943 Balance 702 943 Weight 28.7 kg 28.7 kg General appearance: PRESENT: no acute distress, thin Eye exam: ABSENT: conjunctival injection, scleral icterus Ear exam: PRESENT: normal external ear exam Respiratory exam: PRESENT: decreased breath sounds, unlabored, wheezes, other - Very poor air movement today. ABSENT: rales, rhonchi Cardiovascular exam: PRESENT: RRR GI/Abdominal exam: PRESENT: normal bowel sounds, soft. ABSENT: distended, tenderness Rectal exam: PRESENT: deferred Extremities exam: PRESENT: other - Cachexia. ABSENT: pedal edema Neurological exam: PRESENT: alert, awake, oriented to person, oriented to place , oriented to situation, CN II-XII grossly intact Psychiatric exam: PRESENT: appropriate affect. ABSENT: anxious Skin exam: PRESENT: dry, intact, warm Results Laboratory Results: 05/25/18 10:22 05/24/18 06:31 05/25/18 10:22 WBC 5.0 RBC 4.04 Hgb 8.4 L Hct 28.7 L MCV 71 L MCH 20.8 L MCHC 29.4 L RDW 21.2 H Plt Count 199 Seg Neutrophils % 72.5 Lymphocytes % 16.5 Monocytes % 8.9 Eosinophils % 1.9 Basophils % 0.2 Absolute Neutrophils 3.6 Absolute Lymphocytes 0.8 Absolute Monocytes 0.4 Absolute Eosinophils 0.1 Absolute Basophils 0.0 Impressions: Chest X-Ray 05/18/18 15:17 IMPRESSION: 1 Findings of COPD, unchanged since the prior study dated 2008. 2 Mild prominence of the interstitial markings particularly in the apices-- upper lobes, new finding since the prior study. Prominence of the hilar regions bilaterally may represent pulmonary arteries. Further evaluation with CT chest suggested. Chest CT 05/18/18 16:19 IMPRESSION: Spiculated right apical mass measures 1.2 cm. New since 2008. Extensive emphysema. Compression fractures of approximately T5 and T8 which could be acute. Additional treated fractures. Large hiatal hernia. Abdomen/Pelvis CT 05/20/18 00:00 IMPRESSION: Chronic abdominal aortic occlusion with patent axillary to femoral bypass graft bilaterally Atrophic left kidney No acute findings Qualifiers - * PATIENT BEING DISCHARGED WITH ANY OF THE FOLLOWING DIAGNOSIS: No Plan Discharge Plan: Patient follow-up with PCP within 1 week. She is also to follow up with salad bar clerk for lung mass. Time Spent: Greater than 30 Minutes
[2018-05-25 15:32] VITALS: BP 147/73
== END 2018-05-25 16:29 | disposition home or self-care (01) | DRG 177 ==
LOC: ER 14:18 → INTOOBSV 18:58 → EH 18:58 → 4N 20:35 → OBSVTOIN 05-19 12:43
PROVIDERS: ADMIT Internal Medicine; ATTEND Internal Medicine
PROC: 5A09457 Assistance with Respiratory Ventilation, 24-96 Consecutive Hours, Continuous Positive Airway Pressure (ICD-10-PCS; principal; 2018-05-19)
PROC: 3E0F73Z Introduction of Anti-inflammatory into Respiratory Tract, Via Natural or Artificial Opening (ICD-10-PCS; 2018-05-19)
DX: J15.212 Pneumonia due to Methicillin resistant Staphylococcus aureus (principal); J96.02 Acute respiratory failure with hypercapnia; E43 Unspecified severe protein-calorie malnutrition; J96.21 Acute and chronic respiratory failure with hypoxia; I50.21 Acute systolic (congestive) heart failure; J96.01 Acute respiratory failure with hypoxia; J44.1 Chronic obstructive pulmonary disease with (acute) exacerbation; R64 Cachexia; Z68.1 Body mass index [BMI] 19.9 or less, adult; M80.88XA Other osteoporosis with current pathological fracture, vertebra(e), initial encounter for fracture; E87.0 Hyperosmolality and hypernatremia; J44.0 Chronic obstructive pulmonary disease with (acute) lower respiratory infection; I11.0 Hypertensive heart disease with heart failure; F32.9 Major depressive disorder, single episode, unspecified; R91.1 Solitary pulmonary nodule; I25.10 Atherosclerotic heart disease of native coronary artery without angina pectoris; D53.9 Nutritional anemia, unspecified; K44.9 Diaphragmatic hernia without obstruction or gangrene; I73.9 Peripheral vascular disease, unspecified; F17.210 Nicotine dependence, cigarettes, uncomplicated; J20.8 Acute bronchitis due to other specified organisms; E87.5 Hyperkalemia; I48.2 Chronic atrial fibrillation; Z79.01 Long term (current) use of anticoagulants; Z79.52 Long term (current) use of systemic steroids; Z99.81 Dependence on supplemental oxygen; Z95.5 Presence of coronary angioplasty implant and graft; Z79.899 Other long term (current) drug therapy; Z80.0 Family history of malignant neoplasm of digestive organs; Z80.1 Family history of malignant neoplasm of trachea, bronchus and lung; Z84.1 Family history of disorders of kidney and ureter; Z82.3 Family history of stroke; Z82.49 Family history of ischemic heart disease and other diseases of the circulatory system
CPT/HCPCS: 36415; 71046; 71260; 74177; 80048; 80053; 80076; 82803; 83690; 83735; 83880; 84100; 84484; 85025; 85027; 85610; 87040; 87070; 87077; 87186; 87205; 93005; 93010; 93306; 99285; G0378; J0456; J1650; J1940; J2920; J2930; J3370; J3490; J7060; J7512; J7620

== ENCOUNTER 2018-08-15 07:08 | Emergency (ER) | payer MEDICARE, MEDICAID ==
[2018-08-15] MEDS ORDERED: NORMAL SALINE 1000 ML 1,000 ML IV ONE (07:29)
[2018-08-15] MEDS ORDERED: LEVOFLOXACIN 750 MG/D5W RTU 750 MG/150 ML RTUPB IV ONE (07:29)
[2018-08-15] MEDS ORDERED: ALBUTEROL SULFATE 0.083% NEB 2.5 MG/3 ML AMPUL NEB ONE (07:30)
[2018-08-15] MEDS ORDERED: IPRATROPIUM/ALBUTEROL 0.5-2.5 MG/3 ML AMPUL NEB ONE (07:30)
--- NOTE | 2018-08-15 07:53 | ER Document Report ---
ED General - General Chief Complaint: Flu Symptoms Stated Complaint: FLU LIKE SYMPTOMS Time Seen by Provider: 08/15/18 07:23 TRAVEL OUTSIDE OF THE [place] IN LAST 30 DAYS: No - HPI Notes: Patient is a 68-year-old female that presents to the emergency department for chief complaint of fever and cough. Patient has COPD and is on 2 L nasal cannula oxygen at home. She reports while being on her home oxygen she has had increased shortness of breath and coughing. She reports fevers for the last 4 days. The highest fever she had at home was 101.9. She does endorse productive sputum as well. She denies chest pain, nausea, vomiting, abdominal pain and dysuria. Past Medical History: COPD Past Surgical History: Reviewed in chart Social History: Former smoker, denies drugs and alcohol Family History: Reviewed and noncontributory for presenting illness Allergies: Reviewed, see documented allergy list. REVIEW OF SYSTEMS: CONSTITUTIONAL : fever No chills No diaphoresis No recent illness EENT: No vision changes No congestion No sore throat CARDIOVASCULAR: No chest pain No palpitations RESPIRATORY: shortness of breath cough No difficulty breathing GASTROINTESTINAL: No abdominal pain No nausea No vomiting No diarrhea GENITOURINARY: No dysuria No hematuria No difficulty urinating MUSCULOSKELETAL: No back pain No leg pain No arm pain SKIN: No rashes No lesions LYMPHATIC: No swollen, enlarged glands. NEUROLOGICAL: No lightheadedness No headache No weakness No paresthesias PSYCHIATRIC: No anxiety No depression PHYSICAL EXAMINATION: Vital signs reviewed, nursing noted reviewed. GENERAL: Nontoxic-appearing, thin and frail HEAD: Atraumatic, normocephalic. EYES: Eyes appear normal, extraocular movements intact, sclera anicteric, conjunctiva are normal. ENT: nares patent, oropharynx clear without exudates. Moist mucous membranes. NECK: Normal range of motion, supple without lymphadenopathy LUNGS: Coarse cough, mild accessory muscle use, lung sounds diminished bilaterally. No wheezing or rhonchi. HEART: Regular rate and rhythm without murmurs ABDOMEN: Soft, nontender, normoactive bowel sounds. No rebound, guarding, or rigidity. No masses appreciated. EXTREMITIES: Nontender, good range of motion, no pitting or edema. NEUROLOGICAL: No focal neurological deficits. Moves all extremities spontaneously Motor and sensory grossly intact on exam. PSYCH: Normal mood, normal affect. SKIN: Warm, Dry, normal turgor, no rashes or lesions noted on exposed skin - Related Data Allergies/Adverse Reactions: No Known Allergies Allergy (Verified 08/15/18 07:22) Past Medical History - Social History Smoking Status: Current Some Day Smoker Family History: Reviewed & Not Pertinent Patient has suicidal ideation: No Patient has homicidal ideation: No - Past Medical History Cardiac Medical History: Reports: Hx Atrial Fibrillation, Hx Congestive Heart Failure, Hx Hypercholesterolemia, Hx Hypertension Pulmonary Medical History: Reports: Hx COPD Renal/ Medical History: Denies: Hx Peritoneal Dialysis Psychiatric Medical History: Reports: Hx Depression Past Surgical History: Reports: Hx Cardiac Catheterization - stent x 1 Review of Systems - Review of Systems Notes: Dictated Physical Exam - Vital signs Vitals: Temp Pulse Resp BP Pulse Ox 98.4 F 85 17 141/68 H 97 08/15/18 07:21 08/15/18 07:21 08/15/18 07:21 08/15/18 07:21 08/15/18 07:21 - Notes Notes: Dictated Course - Re-evaluation Re-evalutation: 08/15/18 07:53 Vitals reviewed. Nursing notes reviewed. Patient given aerosols for symptomatic treatment. 08/15/18 11:27 Patient reevaluated. She is oxygenating well on her home 2 L nasal cannula. She is speaking in full sentences. Because of her increased sputum production with COPD exacerbation she will be started on Levaquin. Chest x-ray did not show pneumonia and she does not have sepsis. Patient will also be started on prednisone for her COPD exacerbation. She was complaining of a low back pain after bending forward and moving her oxygen compressor. X-ray of the lumbar spine shows no acute bony injury. Patient was offered Tylenol but refused it. She has hydrocodone at home that she takes for low back pain, she will continue taking her home pain medications as prescribed. She will return for new or worsening symptoms. Discharged in stable condition. Laboratory 08/15/18 08/15/18 08/15/18 07:45 07:45 07:45 WBC 6.6 RBC 4.34 Hgb 12.3 Hct 37.6 MCV 87 MCH 28.3 MCHC 32.7 RDW 18.6 H Plt Count 286 Total Counted 100 Seg Neutrophils % Not Reportable Seg Neuts % (Manual) 92 H Lymphocytes % Not Reportable Lymphocytes % (Manual) 4 L Monocytes % Not Reportable Monocytes % (Manual) 2 L Eosinophils % Not Reportable Eosinophils % (Manual) 2 Basophils % Not Reportable Basophils % (Manual) 0 Absolute Neutrophils Not Reportable Abs Neuts (Manual) 6.1 Absolute Lymphocytes Not Reportable Abs Lymphs (Manual) 0.3 L Absolute Monocytes Not Reportable Abs Monocytes (Manual) 0.1 Absolute Eosinophils Not Reportable Absolute Eos (Manual) 0.1 Absolute Basophils Not Reportable Abs Basophils (Manual) 0.0 Toxic Granulation 2+ Platelet Comment ADEQUATE Poikilocytosis 1+ Anisocytosis 2+ Ovalocytes 1+ Sodium 140.9 Potassium 4.7 Chloride 102 Carbon Dioxide 30 Anion Gap 9 BUN 14 Creatinine 0.57 Est GFR ( Amer) > 60 Est GFR (Non-Af Amer) > 60 Glucose 96 Lactic Acid 1.0 Calcium 9.1 Total Bilirubin 0.9 Direct Bilirubin 0.6 H Neonat Total Bilirubin Not Reportable Neonat Direct Bilirubin Not Reportable Neonat Indirect Bili Not Reportable AST 24 ALT 16 Alkaline Phosphatase 89 Total Protein 6.6 Albumin 3.6 Urine Color Urine Appearance Urine pH Ur Specific [place] Urine Protein Urine Glucose (UA) Urine Ketones Urine Blood Urine Nitrite Urine Bilirubin Urine Urobilinogen Ur Leukocyte Esterase Urine WBC (Auto) Urine RBC (Auto) U Hyaline Cast (Auto) Squamous Epi Cells Auto Urine Mucus (Auto) Urine Ascorbic Acid Influenza A (Rapid) Influenza B (Rapid) 08/15/18 08/15/18 09:30 09:41 WBC RBC Hgb Hct MCV MCH MCHC RDW Plt Count Total Counted Seg Neutrophils % Seg Neuts % (Manual) Lymphocytes % Lymphocytes % (Manual) Monocytes % Monocytes % (Manual) Eosinophils % Eosinophils % (Manual) Basophils % Basophils % (Manual) Absolute Neutrophils Abs Neuts (Manual) Absolute Lymphocytes Abs Lymphs (Manual) Absolute Monocytes Abs Monocytes (Manual) Absolute Eosinophils Absolute Eos (Manual) Absolute Basophils Abs Basophils (Manual) Toxic Granulation Platelet Comment Poikilocytosis Anisocytosis Ovalocytes Sodium Potassium Chloride Carbon Dioxide Anion Gap BUN Creatinine Est GFR ( Amer) Est GFR (Non-Af Amer) Glucose Lactic Acid Calcium Total Bilirubin Direct Bilirubin Neonat Total Bilirubin Neonat Direct Bilirubin Neonat Indirect Bili AST ALT Alkaline Phosphatase Total Protein Albumin Urine Color YIN Urine Appearance SLIGHTLY-CLOUDY Urine pH 5.0 Ur Specific [place] 1.030 Urine Protein 30 H Urine Glucose (UA) NEGATIVE Urine Ketones 20 H Urine Blood NEGATIVE Urine Nitrite NEGATIVE Urine Bilirubin SMALL H Urine Urobilinogen 4.0 H Ur Leukocyte Esterase NEGATIVE Urine WBC (Auto) 2 Urine RBC (Auto) 5 U Hyaline Cast (Auto) 30 Squamous Epi Cells Auto 2 Urine Mucus (Auto) MOD Urine Ascorbic Acid NEGATIVE Influenza A (Rapid) NEGATIVE Influenza B (Rapid) NEGATIVE Chest X-Ray 08/15/18 07:23 IMPRESSION: COPD. STABLE CHRONIC CHANGES. NO ACUTE RADIOGRAPHIC FINDING IN THE CHEST. 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 NO APPARENT ACUTE FINDINGS. - Vital Signs Vital signs: Temp Pulse Resp BP Pulse Ox 98.4 F 85 33 H 103/52 L 100 08/15/18 07:21 08/15/18 07:21 08/15/18 11:07 08/15/18 09:30 08/15/18 09:30 - Laboratory Result Diagrams: 08/15/18 07:45 08/15/18 07:45 Laboratory results interpreted by me: 08/15/18 08/15/18 08/15/18 07:45 07:45 09:30 RDW 18.6 H Seg Neuts % (Manual) 92 H Lymphocytes % (Manual) 4 L Monocytes % (Manual) 2 L Abs Lymphs (Manual) 0.3 L Direct Bilirubin 0.6 H Urine Protein 30 H Urine Ketones 20 H Urine Bilirubin SMALL H Urine Urobilinogen 4.0 H Discharge - Discharge Clinical Impression: COPD exacerbation Back pain Qualifiers: Back pain location: low back pain Chronicity: chronic Back pain laterality: bilateral Sciatica presence: without sciatica Qualified Code(s): M54.5 - Low back pain; G89.29 - Other chronic pain; G89.29 - Other chronic pain Condition: Stable Disposition: HOME, SELF-CARE Instructions: Chronic Obstructive Lung Disease ([facility]) Additional Instructions: Please return to the emergency department if you have any worsening, or concern of your symptoms. Please return to the emergency department if you develop chest pain, difficulty breathing, severe abdominal pain, or ongoing vomiting. Please follow-up with your primary care physician in 2-3 days and any other recommended physicians. If prescribed, take all medications as directed. If you have any questions or concerns do not hesitate to return the emergency department for evaluation. Use your albuterol nebulizer or inhaler every 4 hours as needed for shortness of breath and coughing. Begin taking prednisone and Levaquin on 08/16/18 Prescriptions: Levofloxacin 750 mg PO DAILY #4 tablet Prednisone [Deltasone 20 mg Tablet] 2 tab PO DAILY 5 Days tablet Referrals: MASOOD DIANE PA-C [Primary Care Provider] - Follow up in 3-5 days
[2018-08-15 08:01] LABS: HEMATOCRIT 37.6 % (36.0-47.0); HEMOGLOBIN 12.3 g/dL (12.0-15.5); MEAN CORPUSCULAR HEMOGLOBIN 28.3 pg (27.0-33.4); MEAN CORPUSCULAR HGB CONC 32.7 g/dL (32.0-36.0); MEAN CORPUSCULAR VOLUME 87 fl (80-97); PLATELET COUNT 286 10^3/uL (150-450); RED BLOOD COUNT 4.34 10^6/uL (3.72-5.28); RED CELL DISTRIBUTION WIDTH 18.6 % (11.5-14.0); WHITE BLOOD COUNT 6.6 10^3/uL (4.0-10.5)
[2018-08-15 08:21] LABS: ABSOLUTE LYMPHOCYTES# (MANUAL) 0.3 10^3/uL (0.5-4.7); ABSOLUTE MONOCYTES # (MANUAL) 0.1 10^3/uL (0.1-1.4); ABSOLUTE NEUTROPHILS# (MANUAL) 6.1 10^3/uL (1.7-8.2); BASOPHILS % (MANUAL) 0 % (0-2); EOSINOPHILS % (MANUAL) 2 % (0-6); LYMPHOCYTES % (MANUAL) 4 % (13-45); MONOCYTES % (MANUAL) 2 % (3-13); SEGMENTED NEUTROPHILS % (MAN) 92 % (42-78); TOTAL CELLS COUNTED 100
[2018-08-15 08:23] LABS: ANISOCYTOSIS 2+; OVALOCYTES 1+; POIKILOCYTOSIS 1+; TOXIC GRANULATION 2+
[2018-08-15 08:24] LABS: PLATELET COMMENT ADEQUATE
[2018-08-15 08:32] LABS: ALANINE AMINOTRANSFERASE 16 U/L (9-52); ALBUMIN 3.6 g/dL (3.5-5.0); ALKALINE PHOSPHATASE 89 U/L (38-126); ANION GAP 9 (5-19); ASPARTATE AMINO TRANSFERASE 24 U/L (14-36); BILIRUBIN,DIRECT 0.6 mg/dL (0.0-0.4); BILIRUBIN,TOTAL 0.9 mg/dL (0.2-1.3); BLOOD UREA NITROGEN 14 mg/dL (7-20); CALCIUM 9.1 mg/dL (8.4-10.2); CARBON DIOXIDE 30 mmol/L (22-30); CHLORIDE 102 mmol/L (98-107); GLUCOSE 96 mg/dL (75-110); POTASSIUM 4.7 mmol/L (3.6-5.0); SODIUM 140.9 mmol/L (137-145); TOTAL PROTEIN 6.6 g/dL (6.3-8.2)
--- NOTE | 2018-08-15 08:39 | RADIOLOGY REPORT (SQ) ---
EXAM DESCRIPTION: CHEST SINGLE VIEW COMPLETED DATE/TIME: 08/15/2018 8:10 am REASON FOR STUDY: cough COMPARISON: None. NUMBER OF VIEWS: One view. TECHNIQUE: Single frontal radiographic view of the chest acquired. LIMITATIONS: None. FINDINGS: LUNGS AND PLEURA: Chronic interstitial changes with chronic findings in the right apex. N o lobar infiltrate. No pneumothorax. No pleural effusion. Attenuated blood vessels and flattened hem i-diaphragms. MEDIASTINUM AND HILAR STRUCTURES: No masses. Calcified lymph nodes. Contour normal. HEART AND VASCULAR STRUCTURES: Heart normal in size. Normal vasculature. BONES: No acute findings. HARDWARE: Surgical clips. OTHER: No other significant finding. IMPRESSION: COPD. STABLE CHRONIC CHANGES. NO ACUTE RADIOGRAPHIC FINDING IN THE CHEST. TECHNICAL DOCUMENTATION: JOB ID: [id number] [employer]- All Rights Reserved Reading location - IP/workstation name: [email or web address]
[2018-08-15] MEDS ORDERED: METHYLPREDNISOLONE INJ 125 MG/2 ML SDV IV ONE (08:53)
[2018-08-15 10:14] LABS: APPEARANCE,URINE SLIGHTLY-CLOUDY; BILIRUBIN,URINE SMALL (NEGATIVE); COLOR,URINE AMBER; GLUCOSE, URINE NEGATIVE (NEGATIVE); KETONES,URINE 20 mg/dL (NEGATIVE); LEUKOCYTE ESTERASE,URINE NEGATIVE (NEGATIVE); NITRITE,URINE NEGATIVE (NEGATIVE); PROTEIN,URINE 30 mg/dL (NEGATIVE)
[2018-08-15] MEDS ORDERED: ACETAMINOPHEN 325 MG TABLET PO ONE (10:21)
[2018-08-15 10:30] LABS: A TYPE INFLUENZA AG NEGATIVE (NEGATIVE); B INFLUENZA AG NEGATIVE (NEGATIVE)
--- NOTE | 2018-08-15 11:02 | RADIOLOGY REPORT (SQ) ---
EXAM DESCRIPTION: L SPINE 2 VIEWS COMPLETED DATE/TIME: 08/15/2018 10:54 am REASON FOR STUDY: pain COMPARISON: None. NUMBER OF VIEWS: Two views. TECHNIQUE: AP and lateral radiographic images acquired of the lumbar spine. LIMITATIONS: None. FINDINGS: MINERALIZATION: Normal. SEGMENTATION: Normal. No transitional anatomy. ALIGNMENT: Normal. VERTEBRAE: Old compression deformity of the L1 vertebral body with kyphoplasty cement. Remainder of the lumbar vertebrae are intact. DISCS: Preserved height. No significant osteophytes or end plate irregularity. POSTERIOR ELEMENTS: Pedicles and facets are intact. No pars defect or posterior arch defects. HARDWARE: None in the spine. PARASPINAL SOFT TISSUES: Normal. PELVIS: Intact as visualized. No fractures or worrisome bone lesions. SI joints intact. OTHER: No other significant finding. 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 NO APPARENT ACUTE FINDINGS. TECHNICAL DOCUMENTATION: JOB ID: [id number] [employer]- All Rights Reserved Reading location - IP/workstation name: [email or web address]
[2018-08-15 11:44] VITALS: BP 102/91
== END 2018-08-15 12:30 | disposition home or self-care (01) ==
LOC: ER 07:08
DX: J44.1 Chronic obstructive pulmonary disease with (acute) exacerbation (principal); G89.29 Other chronic pain; M54.5 Low back pain; R50.9 Fever, unspecified; F17.200 Nicotine dependence, unspecified, uncomplicated; Z99.81 Dependence on supplemental oxygen
CPT/HCPCS: 94640 ×2; 99284; 96375; 96365; 96366; 36415; 87040; 87086; 85025; 80053; 81001; 83605; 87804; 71045; 72100; J2930; J7030; J1956; A9270 ×2; J7620

== ENCOUNTER 2018-08-20 15:57 | Inpatient (IN) | payer MEDICARE, MEDICAID ==
[2018-08-20] MEDS ORDERED: MORPHINE SULFATE 10 MG/ML INJ IV ONE (16:32)
[2018-08-20 16:42] LABS: ABSOLUTE EOSINOPHILS # (AUTO) 0.1 10^3/uL (0.0-0.6); ABSOLUTE LYMPHOCYTES (AUTO) 0.9 10^3/uL (0.5-4.7); ABSOLUTE MONOCYTES (AUTO) 0.7 10^3/uL (0.1-1.4); ABSOLUTE NEUT (AUTO) 11.9 10^3/uL (1.7-8.2); BASOPHILS % (AUTO) 0.3 % (0-2); EOSINOPHILS % (AUTO) 0.6 % (0-6); HEMATOCRIT 37.9 % (36.0-47.0); HEMOGLOBIN 12.4 g/dL (12.0-15.5); LYMPHOCYTES % (AUTO) 6.7 % (13-45); MEAN CORPUSCULAR HEMOGLOBIN 28.5 pg (27.0-33.4); MEAN CORPUSCULAR HGB CONC 32.8 g/dL (32.0-36.0); MEAN CORPUSCULAR VOLUME 87 fl (80-97); MONOCYTES % (AUTO) 5.4 % (3-13); PLATELET COUNT 356 10^3/uL (150-450); RED BLOOD COUNT 4.36 10^6/uL (3.72-5.28); RED CELL DISTRIBUTION WIDTH 18.5 % (11.5-14.0); TOTAL CELLS COUNTED % (AUTO) 100 %; VENOUS BLOOD BASE EXCESS 5.8 mmol/L; VENOUS BLOOD HCO3 33.4 mmol/L (20-32); VENOUS BLOOD PCO2 62.8 mmHg (35-63); VENOUS BLOOD PH 7.34 (7.30-7.42); WHITE BLOOD COUNT 13.7 10^3/uL (4.0-10.5)
[2018-08-20 16:47] LABS: APPEARANCE,URINE SLIGHTLY-CLOUDY; BILIRUBIN,URINE NEGATIVE (NEGATIVE); CALCIUM OXALATE CRYSTALS,URINE FEW /HPF; COLOR,URINE AMBER; GLUCOSE, URINE NEGATIVE (NEGATIVE); KETONES,URINE TRACE mg/dL (NEGATIVE); LEUKOCYTE ESTERASE,URINE NEGATIVE (NEGATIVE); NITRITE,URINE NEGATIVE (NEGATIVE); PROTEIN,URINE 30 mg/dL (NEGATIVE); URINE SPECIFIC GRAVITY 1.023
[2018-08-20] MEDS ORDERED: IPRATROPIUM/ALBUTEROL 0.5-2.5 MG/3 ML AMPUL NEB ONE (16:54)
[2018-08-20] MEDS ORDERED: METHYLPREDNISOLONE INJ 125 MG/2 ML SDV IV ONE (16:55)
--- NOTE | 2018-08-20 17:04 | ER Document Report ---
ED Respiratory Problem - General Chief Complaint: Breathing Difficulty Stated Complaint: DIFFICULTY BREATHING Time Seen by Provider: 08/20/18 16:31 Notes: Patient is being seen today in the emergency department for low oxygen level. She had a routine schedule follow-up appointment with her compensation and benefits analyst today and was noted to have a low oxygen level and sent here for evaluation. Patient has a history of COPD on home oxygen 2 L at all times, except she only had her oxygen tank going at 1 L/min on her travels to her doctor's office today. Upon arrival here today, patient is still very vocal about the pain that she is having in her back. She has had kyphoplasty. Her oxygen level initially upon arrival here was 75% on 1 L. Patient thinks she has had some fever off and on during this past week. She is coughing up "dirty green" phlegm. She has a history of COPD exacerbation and pneumonia, admitted to this hospital in May,. She was also seen here 5 days ago with back pain and flulike symptoms and discharged on prednisone and Levaquin. She continues to have a cough and chest congestion. She also continues to smoke cigarettes although she stopped for a couple of months, she resumed smoking a couple of weeks ago. Patient is on warfarin because she says that she has poor blood flow to her arteries in which she has had many vascular surgeries. TRAVEL OUTSIDE OF THE [place] IN LAST 30 DAYS: No - Related Data Allergies/Adverse Reactions: No Known Allergies Allergy (Verified 08/20/18 16:36) Past Medical History - Social History Smoking Status: Current Every Day Smoker Family History: Reviewed & Not Pertinent - Past Medical History Cardiac Medical History: Reports: Hx Atrial Fibrillation, Hx Congestive Heart Failure, Hx Hypercholesterolemia, Hx Hypertension Pulmonary Medical History: Reports: Hx COPD Psychiatric Medical History: Reports: Hx Depression Past Surgical History: Reports: Hx Cardiac Catheterization - stent x 1, Hx Vascular Surgery Review of Systems - Review of Systems Notes: REVIEW OF SYSTEMS: CONSTITUTIONAL : Thinks she has had some inter-remittent fevers this past week. EENT: Denies eye, ear, nose or mouth or throat pain or other symptoms. CARDIOVASCULAR: Denies chest pain. RESPIRATORY: See HPI. GASTROINTESTINAL: Denies abdominal pain or nausea, vomiting, or diarrhea. GENITOURINARY: Denies difficulty or painful urinating, urinary frequency, blood in urine. MUSCULOSKELETAL: Complains repeatedly about back pain. Denies neck pain. Denies joint pain or swelling. SKIN: Denies rash or skin lesions. NEUROLOGICAL: Denies LOC or altered mental status. Denies headache. Denies sensory loss or motor deficits. ALL OTHER SYSTEMS REVIEWED AND NEGATIVE. Physical Exam - Vital signs Vitals: BP 147/77 H 08/20/18 16:13 Interpretation: Hypoxic - See HPI. - Notes Notes: PHYSICAL EXAMINATION: GENERAL: Thin and pale appearing. Can stand and transfer from wheelchair to bed. HEAD: Atraumatic, normocephalic. EYES: Pupils equal round and reactive to light, extraocular movements intact. ENT: oropharynx clear without exudates. Moist mucous membranes. NECK: Normal range of motion, supple. LUNGS: Breath sounds distant, with fine expiratory wheezes bilaterally. HEART: Regular rate and rhythm without murmurs. ABDOMEN: Soft, nontender. No guarding or rebound. No masses. BACK: No tenderness throughout entire back. EXTREMITIES: Normal range of motion without pain. Negative Homans bilaterally. NEUROLOGICAL: Normal speech, normal gait. Normal sensory, motor, and reflex exams. Awake, alert, and oriented x3. Cranial nerves normal. PSYCH: Normal mood, normal affect. SKIN: Warm, dry, no rashes. Course - Re-evaluation Re-evalutation: 08/20/18 17:15 Patient was placed on BiPAP upon her initial presentation to the emergency department. Vital signs are stable at this time. - Vital Signs Vital signs: Temp Pulse Resp BP Pulse Ox 97.3 F 21 H 149/76 H 99 08/20/18 16:26 08/20/18 18:40 08/20/18 18:40 08/20/18 18:40 - Laboratory Result Diagrams: 08/20/18 16:15 08/20/18 16:15 Laboratory results interpreted by me: 08/20/18 08/20/18 08/20/18 16:15 16:15 16:15 WBC 13.7 H RDW 18.5 H Seg Neutrophils % 87.0 H Lymphocytes % 6.7 L Absolute Neutrophils 11.9 H VBG HCO3 Carbon Dioxide 32 H NT-Pro-B Natriuret Pep 1160 H Urine Protein Urine Ketones Urine Urobilinogen 08/20/18 08/20/18 16:15 16:15 WBC RDW Seg Neutrophils % Lymphocytes % Absolute Neutrophils VBG HCO3 33.4 H Carbon Dioxide NT-Pro-B Natriuret Pep Urine Protein 30 H Urine Ketones TRACE H Urine Urobilinogen 4.0 H - Diagnostic Test Radiology results interpreted by me: 08/20/18 17:14 Chest x-ray shows severe COPD with hyperexpanded lungs and depressed diaphragms. - EKG Interpretation by Me EKG shows normal: Sinus rhythm Rate: Normal Rhythm: NSR Additional EKG results interpreted by me: 08/20/18 17:14 EKG is normal sinus rhythm and LVH, no acute changes. Critical Care Note - Critical Care Note Total time excluding time spent on procedures (mins): 30 Discharge - Discharge Clinical Impression: COPD exacerbation Back pain Qualifiers: Back pain location: low back pain Chronicity: chronic Back pain laterality: bilateral Sciatica presence: without sciatica Qualified Code(s): M54.5 - Low back pain Condition: Stable Disposition: ADMITTED OBSERVATION Admitting Provider: Hospitalist Unit Admitted: IMCU Referrals: MASOOD DIANE PA-C [Primary Care Provider] - Follow up as needed
[2018-08-20 17:08] LABS: ALANINE AMINOTRANSFERASE 13 U/L (9-52); ALKALINE PHOSPHATASE 86 U/L (38-126); ANION GAP 9 (5-19); ASPARTATE AMINO TRANSFERASE 31 U/L (14-36); BILIRUBIN,DIRECT 0.4 mg/dL (0.0-0.4); BILIRUBIN,TOTAL 0.7 mg/dL (0.2-1.3); BLOOD UREA NITROGEN 18 mg/dL (7-20); CALCIUM 9.8 mg/dL (8.4-10.2); CARBON DIOXIDE 32 mmol/L (22-30); CHLORIDE 99 mmol/L (98-107); GLUCOSE 83 mg/dL (75-110); POTASSIUM 3.8 mmol/L (3.6-5.0); SODIUM 139.5 mmol/L (137-145); TOTAL PROTEIN 7.4 g/dL (6.3-8.2)
[2018-08-20 17:09] LABS: ANISOCYTOSIS 2+; OVALOCYTES SLIGHT; PLATELET COMMENT ADEQUATE; POIKILOCYTOSIS SLIGHT; TOXIC GRANULATION SLIGHT
--- NOTE | 2018-08-20 17:20 | RADIOLOGY REPORT (SQ) ---
EXAM DESCRIPTION: CHEST SINGLE VIEW COMPLETED DATE/TIME: 08/20/2018 4:55 pm REASON FOR STUDY: SOB COMPARISON: None. EXAM PARAMETERS: NUMBER OF VIEWS: One view. TECHNIQUE: Single frontal radiographic view of the chest acquired. RADIATION DOSE: NA LIMITATIONS: None. FINDINGS: LUNGS AND PLEURA: Marked flattening of the hemidiaphragms. Severe COPD. No effusions. MEDIASTINUM AND HILAR STRUCTURES: Retrocardiac hiatal hernia. HEART AND VASCULAR STRUCTURES: Heart normal in size. Normal vasculature. BONES: No acute findings. HARDWARE: Vascular stent. OTHER: No other significant finding. IMPRESSION: Severe COPD. TECHNICAL DOCUMENTATION: JOB ID: [id number] [employer]- All Rights Reserved Reading location - IP/workstation name: [email or web address]
[2018-08-20] MEDS ORDERED: IPRATROPIUM/ALBUTEROL 0.5-2.5 MG/3 ML AMPUL NEB PRN (18:25)
--- NOTE | 2018-08-20 18:25 | EKG REPORT ---
SEVERITY:- ABNORMAL ECG - SINUS RHYTHM RIGHT ATRIAL ABNORMALITY LEFT VENTRICULAR HYPERTROPHY : Confirmed by: Babak Reed MD 20-Aug-2018 18:24:57
--- NOTE | 2018-08-20 18:45 | PDOC H&P ---
History of Present Illness Admission Date/PCP: MASOOD DIANE PA-C History of Present Illness: MJ SHELTON is a 68 year old female who has severe COPD and chronic hypoxemic respiratory failure who continues to smoke despite these diagnoses and also in spite of the mass that was seen on her chest CT this past summer in this facility, who said her oxygen supply at home was running low so she cut it down to 1 L for a few days instead of calling the company and telling them she was running out. When she went to her doctor's office today while they were doing a routine check of her vital signs they noticed that her pulse oximetry was in the 70s. Apparently it was 75% on 1 L in the ER when she first got here. She got a nebulizer treatment, but I spoke with her nurse and she said her lungs did not really sound that bad before the treatment. Patient denies any cough or shortness of breath it is out of the ordinary for her. She denies any fever. She denies any sick contacts. When I saw her she was on BiPAP with a 60 % FiO2 and her SPO2 was 100% while she was talking to me without having to stop to catch her breath. I turned her down to 35% and her pulse oximetry continued to remain at 100% for several minutes while I was still in the room and while she was talking. Past Medical History Cardiac Medical History: Reports: Atrial Fibrillation, Congestive Heart Failure , Hyperlipidema, Hypertension Pulmonary Medical History: Reports: Chronic Obstructive Pulmonary Disease (COPD) Psychiatric Medical History: Reports: Depression Hematology: Reports: Anemia Past Surgical History Past Surgical History: Reports: Cardiac Catheterization - stent x 1, Vascular Surgery Social History Smoking Status: Current Every Day Smoker Frequency of Alcohol Use: None Drugs: None Family History Family History: Reviewed & Not Pertinent Parental Family History Reviewed: No - Noncontributory Children Family History Reviewed: No - Noncontributory Sibling(s) Family History Reviewed.: No - Noncontributory Medication/Allergy Home Medications: Amlodipine Besylate [Norvasc 5 mg Tablet] 2.5 mg PO DAILY 05/18/18 Buspirone HCl [Buspar 5 mg Tablet] 5 mg PO Q12 05/18/18 Citalopram Hydrobromide [Celexa 10 mg Tablet] 10 mg PO DAILY 05/18/18 Donepezil HCl [Aricept 5 mg Tablet] 5 mg PO QPM 05/18/18 Ferrous Sulfate [Feosol 325 mg Tablet] 325 mg PO BID 05/18/18 Fluticasone Propionate [Flovent HFA 220 mcg MDI] 2 puff IH Q12 05/18/18 Gabapentin [Neurontin 300 mg Capsule] 300 mg PO Q8 05/18/18 Hydrocodone/Acetaminophen [Hydrocodone-Acetamin 5-325 mg] 1 tab PO Q8HP PRN Mirtazapine [Remeron 15 mg Tablet] 15 mg PO QPM 05/18/18 Tiotropium [place] [Spiriva Handihaler 5 Cap/Kit (18 Mcg/Cap)] 1 puff IH DAILY 05/18/18 Warfarin Sodium [Coumadin 4 mg Tablet] 4 mg PO QPM 05/18/18 Acetaminophen [Tylenol 325 mg Tablet] 650 mg PO Q6HP PRN tablet 05/25/18 Doxycycline Hyclate [Vibramycin 100 mg Tablet] 100 mg PO Q12 5 Days #10 tablet 05/25/18 Nicotine [Nicoderm 14 mg/24 Hr Transdermal Patch] 1 each TD DAILYP PRN patch.td24 05/25/18 Prednisone [Deltasone 20 mg Tablet] 20 mg PO DAILY 5 Days #5 tablet 05/25/18 Levofloxacin 750 mg PO DAILY #4 tablet 08/15/18 Prednisone [Deltasone 20 mg Tablet] 2 tab PO DAILY 5 Days tablet 08/15/18 Allergies/Adverse Reactions: No Known Allergies Allergy (Verified 08/20/18 16:36) Review of Systems All systems: reviewed and no additional remarkable complaints except as stated - Point review of systems was conducted with the patient was negative except as noted above Physical Exam Vital Signs: Temp Pulse Resp BP Pulse Ox 97.3 F 22 H 153/77 H 100 08/20/18 16:26 08/20/18 18:21 08/20/18 18:21 08/20/18 18:00 Intake & Output 08/19/18 08/20/18 08/21/18 06:59 06:59 06:59 Weight 38.4 kg General appearance: PRESENT: no acute distress, cooperative, disheveled, thin Head exam: PRESENT: atraumatic, normocephalic Eye exam: PRESENT: EOMI, PERRLA. ABSENT: nystagmus, scleral icterus Ear exam: PRESENT: normal external ear exam Mouth exam: PRESENT: other - Did not take off BiPAP to examine her oropharynx Neck exam: PRESENT: full ROM. ABSENT: lymphadenopathy, meningismus, tenderness Respiratory exam: PRESENT: decreased breath sounds, symmetrical, unlabored. ABSENT: accessory muscle use, rales, rhonchi, tachypnea, wheezes Cardiovascular exam: PRESENT: RRR - It was determined from the monitor, her pulse was also regular, I could not hear her heart sounds over the BiPAP breath sounds Pulses: PRESENT: normal radial pulses, normal dorsalis pedis pul Vascular exam: PRESENT: normal capillary refill GI/Abdominal exam: PRESENT: normal bowel sounds, soft. ABSENT: distended, guarding, rebound, tenderness Extremities exam: ABSENT: joint swelling, pedal edema Musculoskeletal exam: PRESENT: normal inspection. ABSENT: deformity Neurological exam: PRESENT: alert, awake, oriented to person, oriented to place , oriented to time, CN II-XII grossly intact. ABSENT: motor sensory deficit - But she was a bit tremulous Psychiatric exam: PRESENT: appropriate affect, normal mood Skin exam: PRESENT: dry, warm Results Laboratory Results: 08/20/18 16:15 08/20/18 16:15 08/20/18 08/20/18 08/20/18 16:15 16:15 16:15 WBC 13.7 H RBC 4.36 Hgb 12.4 Hct 37.9 MCV 87 MCH 28.5 MCHC 32.8 RDW 18.5 H Plt Count 356 Seg Neutrophils % 87.0 H Lymphocytes % 6.7 L Monocytes % 5.4 Eosinophils % 0.6 Basophils % 0.3 Absolute Neutrophils 11.9 H Absolute Lymphocytes 0.9 Absolute Monocytes 0.7 Absolute Eosinophils 0.1 Absolute Basophils 0.0 VBG pH VBG pCO2 VBG HCO3 VBG Base Excess Sodium 139.5 Potassium 3.8 Chloride 99 Carbon Dioxide 32 H Anion Gap 9 BUN 18 Creatinine 0.68 Est GFR ( Amer) > 60 Est GFR (Non-Af Amer) > 60 Glucose 83 Lactic Acid 1.8 Calcium 9.8 Total Bilirubin 0.7 AST 31 ALT 13 Alkaline Phosphatase 86 Total Protein 7.4 Albumin 4.0 Urine Color Urine Appearance Urine pH Ur Specific [place] Urine Protein Urine Glucose (UA) Urine Ketones Urine Blood Urine Nitrite Ur Leukocyte Esterase Urine WBC (Auto) Urine RBC (Auto) 08/20/18 08/20/18 16:15 16:15 WBC RBC Hgb Hct MCV MCH MCHC RDW Plt Count Seg Neutrophils % Lymphocytes % Monocytes % Eosinophils % Basophils % Absolute Neutrophils Absolute Lymphocytes Absolute Monocytes Absolute Eosinophils Absolute Basophils VBG pH 7.34 VBG pCO2 62.8 VBG HCO3 33.4 H VBG Base Excess 5.8 Sodium Potassium Chloride Carbon Dioxide Anion Gap BUN Creatinine Est GFR ( Amer) Est GFR (Non-Af Amer) Glucose Lactic Acid Calcium Total Bilirubin AST ALT Alkaline Phosphatase Total Protein Albumin Urine Color YIN Urine Appearance SLIGHTLY-CLOUDY Urine pH 5.0 Ur Specific [place] 1.023 Urine Protein 30 H Urine Glucose (UA) NEGATIVE Urine Ketones TRACE H Urine Blood NEGATIVE Urine Nitrite NEGATIVE Ur Leukocyte Esterase NEGATIVE Urine WBC (Auto) 2 Urine RBC (Auto) 2 08/20/18 16:15 NT-Pro-B Natriuret Pep 1160 H Impressions: Chest X-Ray 08/20/18 16:27 IMPRESSION: Severe COPD. Assessment & Plan - Diagnosis (1) Acute on chronic respiratory failure with hypoxemia Is this a current diagnosis for this admission?: Yes Plan: This lady does not have a COPD exacerbation. She was given some steroids down the ER but I am not going to continue them. I am going to take her BiPAP off and put her back on her 2 L that she is usually on at home and see how she does. She said she did not even realize anything was wrong until her superintendent plant protection sent her over here because of her low SPO2. Given her response to BiPAP, I think it was just most likely that her oxygen levels were getting low because she was running out of her supply. Will consult case management before she is discharged to make sure she has oxygen at home. (2) Atrial fibrillation Qualifiers: Atrial fibrillation type: chronic Qualified Code(s): I48.2 - Chronic atrial fibrillation Is this a current diagnosis for this admission?: Yes Plan: Currently on a regular rhythm. Continue anticoagulation. (3) Lung mass Is this a current diagnosis for this admission?: Yes Plan: I will have to check to see if she has had appropriate follow-up on this, if she desired to pursue it. If not, I will check with her to see if she wants us to look into it any further, and if so will probably get a repeat the scan of her chest to see if there is been any any interval change. - Time Time Spent: 50 to 70 Minutes - Inpatient Certification Based on my medical assessment, after consideration of the patient's comorbidities, presenting symptoms, or acuity I expect that the services needed warrant INPATIENT care.: Yes I certify that my determination is in accordance with my understanding of Medicare's requirements for reasonable and necessary INPATIENT services [42 CFR 412.3e].: Yes Medical Necessity: Need Close Monitoring Due to Risk of Patient Decompensation, Risk of Complication if Not Cared For in Hospital
[2018-08-20] MEDS ORDERED: WARFARIN SODIUM 4 MG TABLET PO SCH (22:00)
[2018-08-20] MEDS: HYDROCODONE/ACETAMINOPHEN 5-325 MG TABLET PO PRN (23:33)
[2018-08-21] MEDS: GABAPENTIN 300 MG CAPSULE PO SCH ×4 (00:24→23:21)
[2018-08-21 00:51] LABS: INTERNATIONAL RATION (INR) 8.23
[2018-08-21] MEDS ORDERED: PHYTONADIONE 5 MG TABLET PO ONE (01:30)
[2018-08-21] MEDS ORDERED: PHYTONADIONE 5 MG TABLET ONE (02:06)
[2018-08-21] MEDS: HYDROCODONE/ACETAMINOPHEN 5-325 MG TABLET PO PRN ×2 (08:25→16:53)
[2018-08-21 08:57] LABS: INTERNATIONAL RATION (INR) 6.55; PROTHROMBIN TIME 60.2 SEC (11.4-15.4)
[2018-08-21] MEDS: AMLODIPINE BESYLATE 5 MG TABLET PO SCH (10:15)
--- NOTE | 2018-08-21 15:19 | PDOC PROGRESS REPORT ---
Subjective Progress Note for:: 08/21/18 Subjective:: No adverse events overnight. No new complaints. Her oxygen levels have been fine on 2 L nasal cannula events which she is on at home. The reason she still in the hospital is because we checked her INR because she is on Coumadin and have found that her INR supratherapeutic. She has had no history of any bleeding. She does not know why she is on that instead of 1 of the newer anticoagulants. Reason For Visit: ACUTE ON CHRONIC HYPOXEMIC RESPIRATORY FAILURE Physical Exam Vital Signs: Temp Pulse Resp BP Pulse Ox 98.5 F 77 20 122/63 99 08/21/18 12:10 08/21/18 14:00 08/21/18 12:10 08/21/18 12:10 08/21/18 12:10 Intake & Output 08/20/18 08/21/18 08/22/18 06:59 06:59 06:59 Intake Total 118 474 Output Total 200 300 Balance -82 174 Weight 37.9 kg General appearance: PRESENT: no acute distress, cooperative, disheveled, thin Respiratory exam: PRESENT: decreased breath sounds, unlabored. ABSENT: accessory muscle use, chest wall tenderness, rales, rhonchi, tachypnea, wheezes Cardiovascular exam: PRESENT: RRR, +S1, +S2. ABSENT: diastolic murmur, systolic murmur GI/Abdominal exam: PRESENT: normal bowel sounds, soft. ABSENT: guarding, rebound, tenderness Extremities exam: ABSENT: joint swelling, pedal edema Musculoskeletal exam: PRESENT: normal inspection, other - Tremulous. ABSENT: deformity Neurological exam: PRESENT: alert, awake, oriented to person, oriented to place , oriented to time Results Impressions: Chest X-Ray 08/20/18 16:27 IMPRESSION: Severe COPD. Assessment & Plan - Diagnosis (1) Acute on chronic respiratory failure with hypoxemia Is this a current diagnosis for this admission?: Yes Plan: Resolved (2) Atrial fibrillation Qualifiers: Atrial fibrillation type: chronic Qualified Code(s): I48.2 - Chronic atrial fibrillation Is this a current diagnosis for this admission?: Yes Plan: Currently on a regular rhythm (3) Lung mass Is this a current diagnosis for this admission?: Yes Plan: Did not express any desire to want to get this worked up any further but I will revisit this with her on subsequent visits (4) Supratherapeutic INR Is this a current diagnosis for this admission?: Yes Plan: Warfarin coagulopathy. She is been given vitamin K. INR trending down. Watching her for signs of bleeding. We will check to make sure there is not a good reason for her not to be on a newer anticoagulant. - Time Time Spent with patient: 25-34 minutes
[2018-08-21] MEDS ORDERED: ONDANSETRON HCL INJ/PF 4 MG/2 ML SDV IV PRN (16:23)
[2018-08-21] MEDS ORDERED: DONEPEZIL HCL 5 MG TABLET PO SCH ×2 (18:00→22:00)
[2018-08-21] MEDS: CITALOPRAM HYDROBROMIDE 20 MG TABLET PO SCH (19:44)
[2018-08-22] MEDS: HYDROCODONE/ACETAMINOPHEN 5-325 MG TABLET PO PRN (01:28)
[2018-08-22 05:21] LABS: INTERNATIONAL RATION (INR) 1.11
[2018-08-22 05:32] LABS: PROTHROMBIN TIME 14.9 SEC (11.4-15.4)
[2018-08-22] MEDS: GABAPENTIN 300 MG CAPSULE PO SCH (07:00)
[2018-08-22] MEDS: AMLODIPINE BESYLATE 5 MG TABLET PO SCH (09:33)
[2018-08-22] MEDS: CITALOPRAM HYDROBROMIDE 20 MG TABLET PO SCH (09:35)
[2018-08-22 12:14] VITALS: BP 147/72
--- NOTE | 2018-08-22 13:59 | PDOC DISCHARGE SUMMARY ---
General - Admit/Disc Date/PCP Admission Date/Primary Care Provider: 08/20/18 19:07 MASOOD DIANE PA-C Discharge Date: 08/22/18 - Discharge Diagnosis (1) Acute on chronic respiratory failure with hypoxemia Is this a current diagnosis for this admission?: Yes Summary: She was running low on her portable tank was trying to ration her oxygen and she thinks she ran out at her doctor's office and that is why her oxygen levels were so low when she came in. (2) Atrial fibrillation Is this a current diagnosis for this admission?: Yes Summary: Stable on her usual medications (3) Lung mass Is this a current diagnosis for this admission?: Yes Summary: She did not want me to look into it any further at this time. She says that she sees a client care consultant and she is following up on this as an outpatient. (4) Supratherapeutic INR Is this a current diagnosis for this admission?: Yes Summary: I could not identify a reason why she had to be on Coumadin instead of 1 of the newer anticoagulants. Her INR was supratherapeutic and we had to give her a dose of vitamin K, and obviously discontinued her Coumadin. She was started on Eliquis instead. - Additional Information Resuscitation Status: Full Code Discharge Diet: Cardiac Discharge Activity: Slowly Increase Activity Prescriptions: Apixaban [Eliquis 5 mg Tablet] 5 mg PO BID #60 tablet Home Medications: Citalopram Hydrobromide [Celexa 10 mg Tablet] 10 mg PO DAILY 05/18/18 Donepezil HCl [Aricept 5 mg Tablet] 5 mg PO QPM 05/18/18 Gabapentin [Neurontin 300 mg Capsule] 300 mg PO Q8 05/18/18 Hydrocodone/Acetaminophen [Hydrocodone-Acetamin 5-325 mg] 1 tab PO TID PRN 05/18 Amlodipine Besylate [Norvasc 2.5 mg Tablet] 2.5 mg PO DAILY 08/21/18 Fluticasone/Umeclidin/Vilanter [Trelegy Ellipta 100-62.5-25] 1 each IH DAILY Apixaban [Eliquis 5 mg Tablet] 5 mg PO BID #60 tablet 08/22/18 History of Present Illness History of Present Illness: MJ SHELTON is a 68 year old female who has severe COPD and chronic hypoxemic respiratory failure who continues to smoke despite these diagnoses and also in spite of the mass that was seen on her chest CT this past summer in this facility, who said her oxygen supply at home was running low so she cut it down to 1 L for a few days instead of calling the company and telling them she was running out. When she went to her doctor's office today while they were doing a routine check of her vital signs they noticed that her pulse oximetry was in the 70s. Apparently it was 75% on 1 L in the ER when she first got here. She got a nebulizer treatment, but I spoke with her nurse and she said her lungs did not really sound that bad before the treatment. Patient denies any cough or shortness of breath it is out of the ordinary for her. She denies any fever. She denies any sick contacts. When I saw her she was on BiPAP with a 60 % FiO2 and her SPO2 was 100% while she was talking to me without having to stop to catch her breath. I turned her down to 35% and her pulse oximetry continued to remain at 100% for several minutes while I was still in the room and while she was talking. Hospital Course Hospital Course: She was on BiPAP when I first saw her in the ER but she was speaking in complete sentences and her oxygen levels were at 100%, even after I turned her oxygen down to about 35%. We put her back on her 2 L nasal cannula and her oxygen saturations were in the mid 90s the whole time. She did not require any steroids or nebulizer treatments or diuretics. Because she was on Coumadin and INR was checked, and her INR was found to be substantially elevated. At this time if we thought she deserved to get a dose of vitamin K, and we obviously discontinued her Coumadin. As her see her records and could not positively identify a reason why she could not be on 1 of the newer anticoagulants, so instead of Coumadin I will put her on Eliquis. I recommended cardiac rehab and also recommended surveillance imaging of the lung mass that was seen on prior imaging here, but she said that she is got follow-up with a client care consultant, including a bronchoscopy, and she will talk to the client care consultant about cardiac rehab after that procedure. She was discharged today in good condition. Physical Exam Vital Signs: Temp Pulse Resp BP Pulse Ox 98.0 F 65 18 147/72 H 96 08/22/18 12:13 08/22/18 12:13 08/22/18 12:13 08/22/18 12:13 08/22/18 12:13 Intake & Output 08/21/18 08/22/18 08/23/18 06:59 06:59 06:59 Intake Total 118 1173 Output Total 200 1500 Balance -82 -327 Weight 37.9 kg 36 kg General appearance: PRESENT: no acute distress, cooperative, disheveled, thin Respiratory exam: PRESENT: decreased breath sounds, unlabored. ABSENT: accessory muscle use, chest wall tenderness, rales, rhonchi, tachypnea, wheezes Cardiovascular exam: PRESENT: RRR, +S1, +S2. ABSENT: diastolic murmur, systolic murmur GI/Abdominal exam: PRESENT: normal bowel sounds, soft. ABSENT: guarding, rebound, tenderness Extremities exam: ABSENT: joint swelling, pedal edema Musculoskeletal exam: PRESENT: normal inspection, other - Tremulous. ABSENT: deformity Neurological exam: PRESENT: alert, awake, oriented to person, oriented to place , oriented to time Results Impressions: Chest X-Ray 08/20/18 16:27 IMPRESSION: Severe COPD. Qualifiers - * PATIENT BEING DISCHARGED WITH ANY OF THE FOLLOWING DIAGNOSIS: No
== END 2018-08-22 12:50 | disposition home or self-care (01) | DRG 189 ==
LOC: ER 15:57 → EH 18:26 → UNDOADMOB 19:07 → INTOOBSV 19:07 → EH 19:07 → OBSVTOIN 19:07 → 3N 21:55
PROVIDERS: ADMIT Internal Medicine; ATTEND Internal Medicine
PROC: 3E0234Z Introduction of Serum, Toxoid and Vaccine into Muscle, Percutaneous Approach (ICD-10-PCS; principal; 2018-08-22)
DX: J96.21 Acute and chronic respiratory failure with hypoxia (principal); R79.1 Abnormal coagulation profile; J44.9 Chronic obstructive pulmonary disease, unspecified; I48.2 Chronic atrial fibrillation; I50.9 Heart failure, unspecified; I11.0 Hypertensive heart disease with heart failure; E78.5 Hyperlipidemia, unspecified; R91.8 Other nonspecific abnormal finding of lung field; M54.5 Low back pain; F17.210 Nicotine dependence, cigarettes, uncomplicated; Z99.81 Dependence on supplemental oxygen; Z23 Encounter for immunization; Z79.01 Long term (current) use of anticoagulants; Z79.51 Long term (current) use of inhaled steroids; Z79.52 Long term (current) use of systemic steroids; Z79.899 Other long term (current) drug therapy
CPT/HCPCS: 36415; 71045; 80053; 81001; 82803; 83605; 83880; 85025; 85610; 87040; 90686; 93005; 93010; 94640; 94660; 96374; 96375; 99291; J2270; J2405; J2930; J3490; J7620

== ENCOUNTER 2018-11-17 14:42 | Emergency (ER) | payer MEDICARE, MEDICAID ==
--- NOTE | 2018-11-17 15:11 | ER Document Report ---
ED Respiratory Problem - General Chief Complaint: Breathing Difficulty Stated Complaint: DIFFICULTY BREATHING Time Seen by Provider: 11/17/18 15:07 TRAVEL OUTSIDE OF THE [place] IN LAST 30 DAYS: No - Related Data Allergies/Adverse Reactions: No Known Allergies Allergy (Verified 11/17/18 14:43) Past Medical History - Social History Smoking Status: Former Smoker Frequency of alcohol use: None Drug Abuse: None Family History: Reviewed & Not Pertinent Patient has suicidal ideation: No Patient has homicidal ideation: No - Past Medical History Cardiac Medical History: Reports: Hx Atrial Fibrillation, Hx Congestive Heart Failure, Hx Hypercholesterolemia, Hx Hypertension Pulmonary Medical History: Reports: Hx COPD Renal/ Medical History: Denies: Hx Peritoneal Dialysis Psychiatric Medical History: Reports: Hx Depression Past Surgical History: Reports: Hx Cardiac Catheterization - stent x 1, Hx Vascular Surgery - Immunizations Hx Pneumococcal Vaccination: 08/08/16 Physical Exam - Vital signs Vitals: Temp Pulse Resp BP Pulse Ox 97.8 F 93 26 H 174/82 H 100 11/17/18 14:51 11/17/18 14:51 11/17/18 14:51 11/17/18 14:51 11/17/18 14:51 Course - Vital Signs Vital signs: Temp Pulse Resp BP Pulse Ox 97.8 F 93 26 H 174/82 H 100 11/17/18 14:51 11/17/18 14:51 11/17/18 14:51 11/17/18 14:51 11/17/18 14:51 Discharge - Discharge Referrals: MASOOD DIANE PA-C [Primary Care Provider] - Follow up as needed
[2018-11-17] MEDS ORDERED: ALBUTEROL SULFATE 0.083% NEB 2.5 MG/3 ML AMPUL NEB ONE (15:12)
--- NOTE | 2018-11-17 15:13 | ER Document Report ---
ED Medical Screen (RME) - General Chief Complaint: Breathing Difficulty Stated Complaint: DIFFICULTY BREATHING Time Seen by Provider: 11/17/18 15:07 Notes: 68-year-old female to the emergency department chief complaint of shortness of breath. Patient has end-stage COPD. 2 L of oxygen. Recently had to go up to 4 L of oxygen. Had a CT scan this morning of the chest. Has been worse since that time. Was done without contrast. No chest pain but states that she just feels horrible I have greeted and performed a rapid initial assessment of this patient. A comprehensive ED assessment and evaluation of the patient, analysis of test resu lts and completion of the medical decision making process will be conducted by additional ED providers. TRAVEL OUTSIDE OF THE [place] IN LAST 30 DAYS: No - Related Data Allergies/Adverse Reactions: No Known Allergies Allergy (Verified 11/17/18 14:43) Past Medical History - Social History Frequency of alcohol use: None Drug Abuse: None - Past Medical History Cardiac Medical History: Reports: Hx Atrial Fibrillation, Hx Congestive Heart Failure, Hx Hypercholesterolemia, Hx Hypertension Pulmonary Medical History: Reports: Hx COPD Renal/ Medical History: Denies: Hx Peritoneal Dialysis Psychiatric Medical History: Reports: Hx Depression Past Surgical History: Reports: Hx Cardiac Catheterization - stent x 1, Hx Vascular Surgery - Immunizations History of Influenza Vaccine for 08/2017 - 01/2018 Season: Yes Physical Exam - Vital signs Vitals: Temp Pulse Resp BP Pulse Ox 97.8 F 93 26 H 174/82 H 100 11/17/18 14:51 11/17/18 14:51 11/17/18 14:51 11/17/18 14:51 11/17/18 14:51 Course - Vital Signs Vital signs: Temp Pulse Resp BP Pulse Ox 97.8 F 93 26 H 174/82 H 100 11/17/18 14:51 11/17/18 14:51 11/17/18 14:51 11/17/18 14:51 11/17/18 14:51 Doctor's Discharge - Discharge Referrals: MASOOD DIANE PA-C [Primary Care Provider] - Follow up as needed
[2018-11-17 15:43] LABS: ABSOLUTE BASOPHILS # (AUTO) 0.1 10^3/uL (0.0-0.2); ABSOLUTE EOSINOPHILS # (AUTO) 0.2 10^3/uL (0.0-0.6); ABSOLUTE LYMPHOCYTES (AUTO) 1.1 10^3/uL (0.5-4.7); ABSOLUTE MONOCYTES (AUTO) 0.8 10^3/uL (0.1-1.4); ABSOLUTE NEUT (AUTO) 8.3 10^3/uL (1.7-8.2); BASOPHILS % (AUTO) 0.6 % (0-2); HEMATOCRIT 38.2 % (36.0-47.0); HEMOGLOBIN 12.9 g/dL (12.0-15.5); LYMPHOCYTES % (AUTO) 10.8 % (13-45); MEAN CORPUSCULAR HEMOGLOBIN 30.3 pg (27.0-33.4); MEAN CORPUSCULAR HGB CONC 33.7 g/dL (32.0-36.0); MEAN CORPUSCULAR VOLUME 90 fl (80-97); MONOCYTES % (AUTO) 7.7 % (3-13); PLATELET COUNT 305 10^3/uL (150-450); RED BLOOD COUNT 4.25 10^6/uL (3.72-5.28); SEGMENTED NEUTROPHILS % (AUTO) 78.9 % (42-78); TOTAL CELLS COUNTED % (AUTO) 100 %; WHITE BLOOD COUNT 10.6 10^3/uL (4.0-10.5)
--- NOTE | 2018-11-17 15:51 | RADIOLOGY REPORT (SQ) ---
EXAM DESCRIPTION: CHEST SINGLE VIEW COMPLETED DATE/TIME: 11/17/2018 3:40 pm REASON FOR STUDY: sob COMPARISON: 08/20/2018 EXAM PARAMETERS: NUMBER OF VIEWS: One view. TECHNIQUE: Single frontal radiographic view of the chest acquired. RADIATION DOSE: NA LIMITATIONS: None. FINDINGS: LUNGS AND PLEURA: The lungs are hyperexpanded. No infiltrate, effusion, or mass. MEDIASTINUM AND HILAR STRUCTURES: There are some small calcified mediastinal nodes. There is a hiata l hernia. HEART AND VASCULAR STRUCTURES: Heart normal in size. Normal vasculature. BONES: No acute findings. HARDWARE: None in the chest. OTHER: No other significant finding. IMPRESSION: Chronic lung changes with no acute pulmonary findings. Hiatal hernia. TECHNICAL DOCUMENTATION: JOB ID: [id number] [employer]- All Rights Reserved Reading location - IP/workstation name: [email or web address]
[2018-11-17] MEDS ORDERED: IPRATROPIUM/ALBUTEROL 0.5-2.5 MG/3 ML AMPUL NEB ONE (15:59)
[2018-11-17] MEDS ORDERED: METHYLPREDNISOLONE INJ 125 MG/2 ML SDV IV ONE (15:59)
[2018-11-17] MEDS ORDERED: MAGNESIUM SULFATE/D5W 1 GM/100 ML RTUPB IV ONE ×2 (15:59→16:00)
[2018-11-17] MEDS ORDERED: METHYLPREDNISOLONE INJ 125 MG/2 ML SDV ONE (16:00)
[2018-11-17 16:10] LABS: BLOOD UREA NITROGEN 14 mg/dL (7-20); CALCIUM 10.2 mg/dL (8.4-10.2); GLUCOSE 106 mg/dL (75-110)
[2018-11-17 16:11] LABS: ANION GAP 7 (5-19); CARBON DIOXIDE 33 mmol/L (22-30); CHLORIDE 101 mmol/L (98-107); POTASSIUM 3.9 mmol/L (3.6-5.0); SODIUM 141.3 mmol/L (137-145)
[2018-11-17 16:22] LABS: NT PRO BNP 746 pg/mL (5-900)
[2018-11-17 16:23] LABS: TROPONIN I < 0.012 ng/mL
[2018-11-17] MEDS ORDERED: ASPIRIN 81 MG TABLET, CHEWABLE PO ONE (16:49)
--- NOTE | 2018-11-17 16:49 | ER Document Report ---
ED General - General Chief Complaint: Breathing Difficulty Stated Complaint: DIFFICULTY BREATHING Time Seen by Provider: 11/17/18 15:07 Notes: Patient is a 68-year-old female with COPD that presents to the emergency department for chief complaint of shortness of breath, and productive sputum. Patient reports that she is been having difficulty breathing and cough over the past 5 days with a green productive sputum, states she had a temperature of 100.1 F at home as well she has had decreased appetite and weight loss, she does wear oxygen at home, 2 L, but was increasing it to 4 L, because she was having such a difficult time breathing. She states she has had pain associated with the coughing, across her chest. She also has left-sided chest pain, and has a history of PCI with stenting, and is significant history of peripheral vascular disease. She states the pain in her chest is worse with the cough, and at this time she denies having the pain, but when she is coughing it gets much worse. She states she is been using her inhalers without much improvement of her symptoms. Past Medical History: copd, cad, hld, htn, peripheral vascular disease Past Surgical History: multiple peripheral bypass grafting, PCI with stenting Social History: former smoker, denies etoh, or drug use. Family History: Reviewed and noncontributory for presenting illness Allergies: Reviewed, see documented allergy list. REVIEW OF SYSTEMS: Other than noted above, the 12 point review of systems was reviewed with the patient and were negative, all pertinent findings are included in the HPI. PHYSICAL EXAMINATION: Vital signs reviewed, nursing noted reviewed. GENERAL: Elderly frail-appearing female, in mild respiratory distress HEAD: Atraumatic, normocephalic. EYES: Eyes appear normal, extraocular movements intact, sclera anicteric, con junctiva are normal. ENT: nares patent, oropharynx clear without exudates. Moist mucous membranes. NECK: Normal range of motion, supple without lymphadenopathy LUNGS: Poor air movement, throughout all lung morgan, expiratory wheezing noted throughout all lung morgan as well, mild increased work of breathing. HEART: Regular rate and rhythm without murmurs ABDOMEN: Soft, nontender, normoactive bowel sounds. No rebound, guarding, or rigidity. No masses appreciated. EXTREMITIES: Nontender, good range of motion, no pitting or edema. NEUROLOGICAL: No focal neurological deficits. Moves all extremities spontaneously Motor and sensory grossly intact on exam. PSYCH: Normal mood, normal affect. SKIN: Warm, Dry, normal turgor, no rashes or lesions noted on exposed skin TRAVEL OUTSIDE OF THE [place] IN LAST 30 DAYS: No - Related Data Allergies/Adverse Reactions: No Known Allergies Allergy (Verified 11/17/18 14:43) Past Medical History - Social History Smoking Status: Former Smoker Frequency of alcohol use: None Drug Abuse: None Family History: Reviewed & Not Pertinent Patient has suicidal ideation: No Patient has homicidal ideation: No - Past Medical History Cardiac Medical History: Reports: Hx Atrial Fibrillation, Hx Congestive Heart Failure, Hx Hypercholesterolemia, Hx Hypertension Pulmonary Medical History: Reports: Hx COPD Renal/ Medical History: Denies: Hx Peritoneal Dialysis Psychiatric Medical History: Reports: Hx Depression Past Surgical History: Reports: Hx Cardiac Catheterization - stent x 1, Hx Vascular Surgery - Immunizations Hx Pneumococcal Vaccination: 08/08/16 Physical Exam - Vital signs Vitals: Temp Pulse Resp BP Pulse Ox 97.8 F 93 26 H 174/82 H 100 11/17/18 14:51 11/17/18 14:51 11/17/18 14:51 11/17/18 14:51 11/17/18 14:51 Course - Re-evaluation Re-evalutation: Patient seen and examined vital signs reviewed. Laboratory data and imaging were ordered as appropriate for the patient's presenting symptoms and complaint, with consideration of any critical or life threatening conditions that may be associated with their obtained history and exam as noted above. Patient was treated with IV Solu-Medrol, and DuoNeb breathing treatments Results were reviewed when available and demonstrated mild leukocytosis, likely secondary to the patient taking prednisone over the last few days, no evidence of acute infection, chest x-ray negative, for concerning infiltrate. Patient was improved after treatments, and was on her home oxygen, maintaining a good pulse ox, and was not having increased work of breathing, and actually appears quite comfortable Evaluation was most consistent with acute exacerbation of COPD, I feel that the patient can have a trial of outpatient therapy, with prednisone for the next 4 days, 40 mg, she is also given a prescription for nebulized budesonide, and encouraged to use her albuterol inhaler/nebulizer at home more frequently every 4 hours to help with her symptoms. Advised however her symptoms worsen, she did not feel comfortable at home to return immediately to the emergency department Results were discussed with the patient at this point, after careful consideration I feel that that patient can be discharged from the emergency department, the patient was educated treatments and reasons to return to the [facility] department based on their presumed diagnosis as noted above, they were advised to followup with a primary care physician in 2-3 days. Patient was agreeable to plan of care. *Note is created using voice recognition software and may contain spelling, syntax or grammatical errors. Laboratory 11/17/18 11/17/18 11/17/18 15:29 15:29 15:29 WBC 10.6 H RBC 4.25 Hgb 12.9 Hct 38.2 MCV 90 MCH 30.3 MCHC 33.7 RDW 14.0 Plt Count 305 Seg Neutrophils % 78.9 H Lymphocytes % 10.8 L Monocytes % 7.7 Eosinophils % 2.0 Basophils % 0.6 Absolute Neutrophils 8.3 H Absolute Lymphocytes 1.1 Absolute Monocytes 0.8 Absolute Eosinophils 0.2 Absolute Basophils 0.1 Carbonic Acid HCO3/H2CO3 Ratio ABG pH ABG pCO2 ABG pO2 ABG HCO3 ABG Total CO2 ABG O2 Saturation ABG Base Excess FiO2 Sodium 141.3 Potassium 3.9 Chloride 101 Carbon Dioxide 33 H Anion Gap 7 BUN 14 Creatinine 0.77 Est GFR ( Amer) > 60 Est GFR (Non-Af Amer) > 60 Glucose 106 Calcium 10.2 Troponin I < 0.012 NT-Pro-B Natriuret Pep 746 11/17/18 11/17/18 16:00 17:10 WBC RBC Hgb Hct MCV MCH MCHC RDW Plt Count Seg Neutrophils % Lymphocytes % Monocytes % Eosinophils % Basophils % Absolute Neutrophils Absolute Lymphocytes Absolute Monocytes Absolute Eosinophils Absolute Basophils Carbonic Acid Cancelled 1.54 H HCO3/H2CO3 Ratio Cancelled 18:1 ABG pH Cancelled 7.36 ABG pCO2 Cancelled 51.2 H ABG pO2 Cancelled 125.6 H ABG HCO3 Cancelled 28.0 H ABG Total CO2 Cancelled 29.6 H ABG O2 Saturation Cancelled 98.3 H ABG Base Excess Cancelled 1.8 FiO2 Cancelled 3.5L Sodium Potassium Chloride Carbon Dioxide Anion Gap BUN Creatinine Est GFR ( Amer) Est GFR (Non-Af Amer) Glucose Calcium Troponin I NT-Pro-B Natriuret Pep Chest X-Ray 11/17/18 15:11 IMPRESSION: Chronic lung changes with no acute pulmonary findings. Hiatal hernia. - Vital Signs Vital signs: Temp Pulse Resp BP Pulse Ox 97.8 F 93 20 152/72 H 97 11/17/18 14:51 11/17/18 14:51 11/17/18 19:01 11/17/18 19:00 11/17/18 19:01 - Laboratory Result Diagrams: 11/17/18 15:29 11/17/18 15:29 Laboratory results interpreted by me: 11/17/18 11/17/18 11/17/18 15:29 15:29 17:10 WBC 10.6 H Seg Neutrophils % 78.9 H Lymphocytes % 10.8 L Absolute Neutrophils 8.3 H Carbonic Acid 1.54 H ABG pCO2 51.2 H ABG pO2 125.6 H ABG HCO3 28.0 H ABG Total CO2 29.6 H ABG O2 Saturation 98.3 H Carbon Dioxide 33 H - EKG Interpretation by Me Additional EKG results interpreted by me: EKG demonstrates sinus rhythm with a ventricular rate of 93 bpm, normal axis, normal intervals, there is slight ST depression noted in leads II, III and aVF, with significant baseline artifact, this is compared with her prior EKG from 08/20/2018, where this change appears to be new. Discharge - Discharge Clinical Impression: COPD with acute exacerbation Condition: Stable Disposition: HOME, SELF-CARE Instructions: Chronic Obstructive Lung Disease ([facility]) Additional Instructions: Please take the prescribed prednisone, budesonide, and Mucinex, and use your breathing treatments with the albuterol at least 4 times daily, to help with your breathing, continue using her home oxygen, if your symptoms worsen, or do not feel comfortable at home, do not hesitate to return to the emergency department. Prescriptions: RX: Budesonide [Pulmicort] 0.5 mg IH BID #30 ampul.neb Guaifenesin [Mucinex] 1,200 mg PO BID #30 tab.er.12h RX: Prednisone [Deltasone 20 mg Tablet] 40 mg PO DAILY #8 tablet Referrals: MASOOD DIANE PA-C [Primary Care Provider] - Follow up in 3-5 days
[2018-11-17 17:20] LABS: ARTERIAL BLOOD BASE EXCESS 1.8 mmol/L; ARTERIAL BLOOD H2CO3 1.54 mmol/L (1.05-1.35); ARTERIAL BLOOD O2 SATURATION 98.3 % (94-98); ARTERIAL BLOOD PCO2 51.2 mmHg (35-45); ARTERIAL BLOOD PH 7.36 (7.35-7.45); ARTERIAL BLOOD PO2 125.6 mmHg (80-100); ARTERIAL BLOOD TOTAL CO2 29.6 mmol/L (21-25)
[2018-11-17 17:29] LABS: ARTERIAL BLOOD FIO2 3.5L
[2018-11-17 19:10] VITALS: BP 152/72
--- NOTE | 2018-11-17 19:23 | EKG REPORT ---
SEVERITY:- ABNORMAL ECG - SINUS RHYTHM RIGHT ATRIAL ABNORMALITY NONSPECIFIC INTRAVENTRICULAR CONDUCTION DELAY LEFT VENTRICULAR HYPERTROPHY ST DEPRESSION, CONSIDER ISCHEMIA, DIFFUSE LDS : Confirmed by: Lory Vasques 17-Nov-2018 19:23:38
== END 2018-11-17 19:18 | disposition home or self-care (01) ==
LOC: ER 14:42
DX: J44.1 Chronic obstructive pulmonary disease with (acute) exacerbation (principal); R06.02 Shortness of breath; R05 Cough; R50.9 Fever, unspecified; R63.0 Anorexia; R07.9 Chest pain, unspecified; I73.9 Peripheral vascular disease, unspecified; I25.10 Atherosclerotic heart disease of native coronary artery without angina pectoris; I10 Essential (primary) hypertension; Z87.891 Personal history of nicotine dependence
CPT/HCPCS: 93005; 36415; 82803; 85025; 80048; 84484; 83880; 71045; 93010; 36600; A9270 ×3; J2930; J3475; J7620

== ENCOUNTER 2018-12-25 13:14 | Emergency (ER) | payer MEDICARE, MEDICAID ==
[2018-12-25] MEDS ORDERED: ASPIRIN 81 MG TABLET, CHEWABLE PO ONE (14:17)
[2018-12-25] MEDS ORDERED: FAMOTIDINE INJ/PF 20 MG/2 ML SDV IV ONE (14:18)
[2018-12-25] MEDS ORDERED: IPRATROPIUM/ALBUTEROL 0.5-2.5 MG/3 ML AMPUL NEB ONE (14:18)
[2018-12-25] MEDS ORDERED: LIDOCAINE 2% VISCOUS SOLN 20 ML UDCUP PO ONE (14:18)
[2018-12-25] MEDS ORDERED: METOCLOPRAMIDE HCL ORAL SOLN 10 MG/10 ML UDCUP PO ONE (14:18)
[2018-12-25] MEDS ORDERED: MAG HYDROX/AL HYDROX/SIMETH SUSP 30 ML UDCUP PO ONE (14:18)
[2018-12-25] MEDS ORDERED: METHYLPREDNISOLONE INJ 125 MG/2 ML SDV IV ONE (14:19)
--- NOTE | 2018-12-25 14:25 | ER Document Report ---
ED General - General Stated Complaint: DIFFICULTY BREATHING Time Seen by Provider: 12/25/18 14:10 Primary Care Provider: MASOOD DIANE PA-C [Primary Care Provider] - Follow up as needed Mode of Arrival: Medic Notes: 68-year-old female with a history of COPD, coronary artery disease with stents, hypertension, hx of Right lung mass, atrial fibrillation presents emergency department with complaints of shortness of breath, wheezing, productive sputum, epigastric and left upper quadrant pain for the last 3 days. Patient states that her symptoms have been persistent. She is on 2 L nasal cannula at home. She is been using DuoNeb treatments with minimal relief of symptoms. Patient describes her abdominal pain as an aching sensation under the left ribs with radiation into the epigastric area. She denies any alleviating factors. Patient states that the pain is worse when she coughs. She denies any nausea, vomiting, diarrhea, constipation, dysuria. TRAVEL OUTSIDE OF THE [place] IN LAST 30 DAYS: No - HPI Onset: Other - 3 days Associated symptoms: Productive cough, Rhinnorhea Exacerbated by: Coughing Relieved by: Denies Similar symptoms previously: Yes Recently seen / treated by doctor: No - Related Data Allergies/Adverse Reactions: No Known Allergies Allergy (Verified 11/17/18 14:43) Past Medical History - General Information source: Patient - Social History Smoking Status: Former Smoker Family History: Reviewed & Not Pertinent - Past Medical History Cardiac Medical History: Reports: Hx Atrial Fibrillation, Hx Congestive Heart Failure, Hx Hypercholesterolemia, Hx Hypertension Pulmonary Medical History: Reports: Hx COPD Renal/ Medical History: Denies: Hx Peritoneal Dialysis Psychiatric Medical History: Reports: Hx Depression Past Surgical History: Reports: Hx Cardiac Catheterization - stent x 1, Hx Vascular Surgery - Immunizations Hx Pneumococcal Vaccination: 08/08/16 Review of Systems - Review of Systems Constitutional: No symptoms reported EENT: Nose discharge Cardiovascular: No symptoms reported Respiratory: Cough Gastrointestinal: Abdominal pain Genitourinary: No symptoms reported Female Genitourinary: No symptoms reported Musculoskeletal: No symptoms reported Skin: No symptoms reported Hematologic/Lymphatic: No symptoms reported Neurological/Psychological: No symptoms reported -: Yes All other systems reviewed and negative Physical Exam - Vital signs Vitals: Pulse Ox 98 12/25/18 13:25 - Notes Notes: PHYSICAL EXAMINATION: GENERAL: Well-appearing, well-nourished and in no acute distress. HEAD: Atraumatic, normocephalic. EYES: Pupils equal round and reactive to light, extraocular movements intact, conjunctiva are normal. ENT: Nares patent, oropharynx clear without exudates. Moist mucous membranes. NECK: Normal range of motion, supple without lymphadenopathy LUNGS: Mild expiratory wheezing. No rales or rhonchi. HEART: Tachycardic. S1-S2 appreciated. ABDOMEN: Soft, tenderness to palpation in the left upper quadrant and epigastric area. No rebound or guarding. Normal active bowel sounds. Female : deferred Musculoskeletal: Normal range of motion, no pitting or edema. No cyanosis. NEUROLOGICAL: Cranial nerves grossly intact. Normal speech, normal gait. Normal sensory, motor exams PSYCH: Normal mood, normal affect. SKIN: Warm, Dry, normal turgor, no rashes or lesions noted. Course - Re-evaluation Re-evalutation: 12/25/18 15:43 EKG: Ventricular rate 89, MA interval 136, QRS duration 76, QTc 439, sinus rhythm. No ST segment elevation. 12/25/18 19:36 Patient given duoneb treatment and solumedrol. Patient feels better on re- evaluation. CT of the abdomen pelvis was done. It shows a left lower lobe pneumonia, patent axillary to femoral bypass grafts bilaterally, chronic appearing 40% compression fracture of the inferior aspect of the L3 vertebral body. I discussed these results with the patient. Patient states that she is aware of the L3 vertebral body compression fracture. Her primary care physician has referred her to pain management for this. Curb 65 score is a 1. Patient feels comfortable with discharge home with a prescription for antibiotics and following up with her primary care physician this week. I told the patient that if she has any worsening symptoms to return to the emergency department for reevaluation. She is agreeable with plan of care. 12/25/18 19:44 - Vital Signs Vital signs: Temp Pulse Resp BP Pulse Ox 98 12/25/18 13:25 - Laboratory Result Diagrams: 12/25/18 13:30 12/25/18 15:30 Laboratory results interpreted by me: 12/25/18 12/25/18 12/25/18 13:30 15:00 15:30 RDW 14.2 H Carbonic Acid 1.40 H ABG pH 7.34 L ABG pCO2 46.6 H ABG HCO3 24.7 H ABG Total CO2 26.2 H Glucose 135 H Discharge - Discharge Clinical Impression: COPD exacerbation Pneumonia Qualifiers: Pneumonia type: due to unspecified organism Laterality: left Lung location: lower lobe of lung Qualified Code(s): J18.1 - Lobar pneumonia, unspecified organism Condition: Stable Disposition: HOME, SELF-CARE Instructions: Pneumonia ([facility]) Additional Instructions: Take the medication prescribed as directed, follow up with your primary care physician this week, return for worsening symptoms. Prescriptions: Benzonatate [Tessalon Perles 100 mg Capsule] 100 mg PO Q8HP PRN #20 capsule PRN Reason: Levofloxacin [Levaquin] 750 mg PO DAILY #5 tablet Prednisone [Deltasone 20 mg Tablet] 3 tab PO DAILY 5 Days #15 tablet Referrals: MASOOD DIANE PA-C [Primary Care Provider] - Follow up as needed
[2018-12-25] MEDS ORDERED: NORMAL SALINE 500 ML IV ONE (14:26)
--- NOTE | 2018-12-25 14:41 | RADIOLOGY REPORT (SQ) ---
EXAM DESCRIPTION: CHEST SINGLE VIEW COMPLETED DATE/TIME: 12/25/2018 2:33 pm REASON FOR STUDY: shortness of breath COMPARISON: 11/17/2018 EXAM PARAMETERS: NUMBER OF VIEWS: One view. TECHNIQUE: Single frontal radiographic view of the chest acquired. RADIATION DOSE: NA LIMITATIONS: None. FINDINGS: LUNGS AND PLEURA: No opacities, masses or pneumothorax. No pleural effusion. Pulmonary hy perinflation and emphysematous change. Biapical pleural-parenchymal scarring. MEDIASTINUM AND HILAR STRUCTURES: No masses. Contour normal. HEART AND VASCULAR STRUCTURES: Heart normal in size. Normal vasculature. BONES: No acute findings. HARDWARE: None in the chest. OTHER: No other significant finding. IMPRESSION: Hyperinflation and emphysema without acute abnormality of the lungs. TECHNICAL DOCUMENTATION: JOB ID: [id number] [email or web address]- All Rights Reserved Reading location - IP/workstation name: [email or web address]
[2018-12-25 14:51] LABS: ABSOLUTE BASOPHILS # (AUTO) 0.1 10^3/uL (0.0-0.2); ABSOLUTE EOSINOPHILS # (AUTO) 0.1 10^3/uL (0.0-0.6); ABSOLUTE LYMPHOCYTES (AUTO) 1.1 10^3/uL (0.5-4.7); ABSOLUTE MONOCYTES (AUTO) 0.9 10^3/uL (0.1-1.4); ABSOLUTE NEUT (AUTO) 6.5 10^3/uL (1.7-8.2); BASOPHILS % (AUTO) 0.6 % (0-2); EOSINOPHILS % (AUTO) 1.7 % (0-6); HEMATOCRIT 37.1 % (36.0-47.0); HEMOGLOBIN 12.4 g/dL (12.0-15.5); LYMPHOCYTES % (AUTO) 13.2 % (13-45); MEAN CORPUSCULAR HEMOGLOBIN 29.5 pg (27.0-33.4); MEAN CORPUSCULAR HGB CONC 33.4 g/dL (32.0-36.0); MEAN CORPUSCULAR VOLUME 88 fl (80-97); PLATELET COUNT 208 10^3/uL (150-450); RED CELL DISTRIBUTION WIDTH 14.2 % (11.5-14.0); SEGMENTED NEUTROPHILS % (AUTO) 74.5 % (42-78); TOTAL CELLS COUNTED % (AUTO) 100 %; WHITE BLOOD COUNT 8.7 10^3/uL (4.0-10.5)
[2018-12-25] MEDS ORDERED: FENTANYL CITRATE INJ/PF 100 MCG/2 ML AMPUL IV ONE (15:57)
[2018-12-25 16:09] LABS: ALANINE AMINOTRANSFERASE 25 U/L (9-52); ALBUMIN 3.9 g/dL (3.5-5.0); ALKALINE PHOSPHATASE 85 U/L (38-126); ANION GAP 9 (5-19); ASPARTATE AMINO TRANSFERASE 22 U/L (14-36); BILIRUBIN,DIRECT 0.2 mg/dL (0.0-0.4); BILIRUBIN,TOTAL 0.6 mg/dL (0.2-1.3); BLOOD UREA NITROGEN 13 mg/dL (7-20); CALCIUM 9.5 mg/dL (8.4-10.2); CARBON DIOXIDE 29 mmol/L (22-30); CHLORIDE 102 mmol/L (98-107); GLUCOSE 135 mg/dL (75-110); POTASSIUM 3.9 mmol/L (3.6-5.0); TOTAL PROTEIN 6.3 g/dL (6.3-8.2)
[2018-12-25 16:15] LABS: ARTERIAL BLOOD BASE EXCESS -1.3 mmol/L; ARTERIAL BLOOD FIO2 2L; ARTERIAL BLOOD HCO3 24.7 mmol/L (20-24); ARTERIAL BLOOD O2 SATURATION 97.1 % (94-98); ARTERIAL BLOOD PCO2 46.6 mmHg (35-45); ARTERIAL BLOOD PH 7.34 (7.35-7.45); ARTERIAL BLOOD PO2 99.1 mmHg (80-100); ARTERIAL BLOOD TOTAL CO2 26.2 mmol/L (21-25)
[2018-12-25 16:19] LABS: NT PRO BNP 582 pg/mL (5-900)
[2018-12-25 16:22] LABS: TROPONIN I < 0.012 ng/mL
--- NOTE | 2018-12-25 18:36 | RADIOLOGY REPORT (SQ) ---
EXAM DESCRIPTION: CT ABD/PELVIS WITH IV ONLY COMPLETED DATE/TIME: 12/25/2018 6:10 pm REASON FOR STUDY: LUQ, epigastric pain COMPARISON: 05/20/2018 TECHNIQUE: CT scan of the abdomen and pelvis performed using helical scanning technique with dynamic intravenous contrast injection. No oral contrast. Images reviewed with lung, soft tissue, and bone w indows. Reconstructed coronal and sagittal MPR images reviewed. Delayed images for evaluation of the urinary system also acquired. All images stored on PACS. All CT scanners at this facility use dose modulation, iterative reconstruction, and/or weight based d osing when appropriate to reduce radiation dose to as low as reasonably achievable (ALARA). [facility]: Dose Right [facility]: CareDose [facility]: Dose Right [facility]: Teradose 4D [facility]: Betaspring CONTRAST TYPE AND DOSE: contrast/concentration: Isovue 350.00 mg/ml; Total Contrast Delivered: 41.0 ml; Total Saline Delivered: 65.0 ml RENAL FUNCTION: GFR > 60. RADIATION DOSE: CT Rad equipment meets quality standard of care and radiation dose reduction techniq ues were employed. CTDIvol: 4.8 mGy. DLP: 652 mGy-cm.. LIMITATIONS: None. FINDINGS: LOWER CHEST: Patchy consolidation in the posterior segments of the left lower lobe. Simil ar hiatus hernia. LIVER: Normal size. No enhancing masses. No dilated ducts. SPLEEN: Normal size. No focal lesions. PANCREAS: No masses identified. No significant calcifications. No adjacent inflammation or peripancre atic fluid collections. Pancreatic duct not dilated. GALLBLADDER: No calcified stones. No inflammatory changes to suggest cholecystitis. ADRENAL GLANDS: No significant masses. RIGHT KIDNEY AND URETER: No cysts identified. No solid masses identified. Small parenchymal calcifie d stones. No hydronephrosis or hydroureter. LEFT KIDNEY AND URETER: High-grade chronic atrophy. No hydronephrosis or hydroureter. AORTA AND VESSELS: Patent axillary to femoral bypass grafts bilaterally. 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 Chronic occluded aorto iliac bypass grafts. Celiac, SMA, and right luis enrique al appear patent. The high-grade narrowing of the left renal artery with chronic atrophy, similar-ap pearing. IVC filter. RETROPERITONEUM: No bulky retroperitoneal adenopathy. BOWEL AND PERITONEAL CAVITY: Moderate stool burden. No obstruction or inflammatory changes. No free fluid. APPENDIX: Normal. PELVIS: No free fluid. Unremarkable bladder. ABDOMINAL WALL: No masses. No hernias. BONES: Chronic appearing 40% compression of the inferior aspect of the L3 vertebral body, this is new since the previous examination. Similar compression and kyphoplasty of the L1 level. OTHER: No other significant finding. IMPRESSION: Patchy consolidation in the posterior segments of the left lower lobe. Patent axillary to femoral bypass grafts bilaterally. Chronic occlusion of the aorta at the infraren al level. Chronic occluded aorto iliac bypass grafts. Chronic appearing 40% compression of the inferior aspect of the L3 vertebral body, this is new since the previous examination. TECHNICAL DOCUMENTATION: JOB ID: [id number] Quality ID # [id number]: Final reports with documentation of one or more dose reduction techniques (e.g., Au tomated exposure control, adjustment of the mA and/or kV according to patient size, use of iterative reconstruction technique) 2010 [employer]- All Rights Reserved Reading location - IP/workstation name: [email or web address]
--- NOTE | 2018-12-25 19:29 | EKG REPORT ---
SEVERITY:- ABNORMAL ECG - SINUS RHYTHM BORDERLINE RIGHT AXIS DEVIATION CONSIDER LEFT VENTRICULAR HYPERTROPHY : Confirmed by: Babak Reed MD 25-Dec-2018 19:28:56
[2018-12-25] MEDS ORDERED: LEVOFLOXACIN 750 MG TABLET PO ONE (19:32)
[2018-12-25 20:08] VITALS: BP 105/72
== END 2018-12-25 20:10 | disposition home or self-care (01) ==
LOC: ER 13:14
DX: J44.1 Chronic obstructive pulmonary disease with (acute) exacerbation (principal); J18.1 Lobar pneumonia, unspecified organism; I48.91 Unspecified atrial fibrillation; I50.9 Heart failure, unspecified; E78.00 Pure hypercholesterolemia, unspecified; I11.0 Hypertensive heart disease with heart failure
CPT/HCPCS: 93005; 36600; 94640; 99285; 96361; 96374; 96375; 36415; 87040; 82803; 85025; 80053; 84484; 83880; 71045; 74177; 93010; A9270 ×4; J3010; J3490; J2930; J7040; S0028; J7620

== ENCOUNTER 2018-12-29 07:11 | Inpatient (IN) | payer MEDICARE, MEDICAID ==
[2018-12-29] MEDS ORDERED: FENTANYL CITRATE INJ/PF 100 MCG/2 ML AMPUL IV ONE (07:19)
[2018-12-29] MEDS ORDERED: ONDANSETRON HCL INJ/PF 4 MG/2 ML SDV IV ONE (07:19)
[2018-12-29] MEDS ORDERED: ONDANSETRON HCL INJ/PF 4 MG/2 ML SDV ONE (07:20)
[2018-12-29] MEDS ORDERED: IPRATROPIUM/ALBUTEROL 0.5-2.5 MG/3 ML AMPUL NEB ONE (07:20)
--- NOTE | 2018-12-29 07:23 | ER Document Report ---
ED General - General Stated Complaint: DIFFICULTY BREATHING Time Seen by Provider: 12/29/18 07:17 Primary Care Provider: MASOOD DIANE PA-C [Primary Care Provider] - Follow up as needed Notes: Patient is a 68-year-old female end-stage COPD, and pulmonary embolism currently on Eliquis that presents to the emergency department for chief complaint of respiratory distress. Report provided by EMS as the patient is in respiratory distress on BiPAP at this time. He said that the patient called, because of difficulty breathing, found to be 77% on room air, and working hard to breathe, they did give her some breathing treatments, and increased work of breathing, to the point to place her on CPAP, they gave her IV magnesium, she was feeling more comfortable, she was also given 125 mg of Solu-Medrol. She is complaining of back pain at this time, she has a history of compression fracture. And she is also breathing very quickly. She is having nausea as well. Denies recent fevers. She was in the emergency department a few days ago, for similar symptoms, and they came back and are much worse today. On her recent visit she was diagnosed with a left lower lobe pneumonia, 4 days ago. Past Medical History: End-stage COPD, history of PE and DVT, severe peripheral vascular disease Past Surgical History: Bilateral axillofemoral bypass Social History: Smoker, no alcohol or drugs Family History: Reviewed and noncontributory for presenting illness Allergies: Reviewed, see documented allergy list. REVIEW OF SYSTEMS: Other than noted above, the 12 point review of systems was reviewed with the patient and were negative, all pertinent findings are included in the HPI. PHYSICAL EXAMINATION: Vital signs reviewed, nursing noted reviewed. GENERAL: Elderly, frail-appearing female in acute respiratory distress HEAD: Atraumatic, normocephalic. EYES: Eyes appear normal, extraocular movements intact, sclera anicteric, conjunctiva are normal. ENT: nares patent, oropharynx clear without exudates. Moist mucous membranes. NECK: Normal range of motion, supple without lymphadenopathy LUNGS: Diminished lung sounds throughout, expiratory and inspiratory wheezing, acute respiratory distress HEART: Regular rate and rhythm without murmurs ABDOMEN: Soft, nontender, normoactive bowel sounds. No rebound, guarding, or rigidity. No masses appreciated. EXTREMITIES: Nontender, good range of motion, no pitting or edema. NEUROLOGICAL: No focal neurological deficits. Moves all extremities spontaneously Motor and sensory grossly intact on exam. PSYCH: Patient appears anxious, and increased work of breathing. SKIN: Warm, Dry, normal turgor, no rashes or lesions noted on exposed skin TRAVEL OUTSIDE OF THE [place] IN LAST 30 DAYS: No - Related Data Allergies/Adverse Reactions: No Known Allergies Allergy (Verified 11/17/18 14:43) Past Medical History - Social History Smoking Status: Current Every Day Smoker Family History: Reviewed & Not Pertinent - Past Medical History Cardiac Medical History: Reports: Hx Atrial Fibrillation, Hx Congestive Heart Failure, Hx Hypercholesterolemia, Hx Hypertension Pulmonary Medical History: Reports: Hx COPD Renal/ Medical History: Denies: Hx Peritoneal Dialysis Psychiatric Medical History: Reports: Hx Depression Past Surgical History: Reports: Hx Cardiac Catheterization - stent x 1, Hx Vascular Surgery - Immunizations Hx Pneumococcal Vaccination: 08/08/16 Physical Exam - Vital signs Vitals: Resp Pulse Ox 38 H 100 12/29/18 07:15 12/29/18 07:15 Course - Re-evaluation Re-evalutation: Patient seen and examined vital signs reviewed. Laboratory data and imaging were ordered as appropriate for the patient's presenting symptoms and complaint, with consideration of any critical or life threatening conditions that may be associated with their obtained history and exam as noted above. Patient was treated with BiPAP therapy, doing a breathing treatment, previously received IV magnesium, IV Solu-Medrol 125 mg by EMS, she was also started on IV Rocephin and azithromycin, given recent diagnosis of pneumonia Results were reviewed when available and demonstrated acute on chronic respirato ry failure, with acute on chronic respiratory acidosis based on blood gas, chest x-ray was unchanged from her most recent visit. The patient was re-evaluated and was much improved on the BiPAP, and appeared much more calm, after receiving IV fentanyl 50 mcg, and IV Zofran, she did have an episode of emesis in the ED, which is felt to be due to her pain. Evaluation was most consistent with acute on chronic respiratory failure, and acute on chronic respiratory acidosis, pneumonia Results were discussed with the patient at this point after careful consideration I feel that that patient should be admitted to the hospital. This was discussed with the patient that it is in the best interest for their care to be admitted for further evaluation and management. Patient agreed with this plan of care. A call was placed to the admitted physician, Dr. Peralta who graciously accepted the patient onto their service. *Note is created using voice recognition software and may contain spelling, syntax or grammatical errors. Laboratory 12/29/18 12/29/18 12/29/18 07:25 07:25 07:25 WBC 6.7 RBC 4.50 Hgb 13.1 Hct 39.8 MCV 88 MCH 29.1 MCHC 33.0 RDW 14.0 Plt Count 288 Seg Neutrophils % 64.6 Lymphocytes % 23.5 Monocytes % 9.8 Eosinophils % 1.5 Basophils % 0.6 Absolute Neutrophils 4.3 Absolute Lymphocytes 1.6 Absolute Monocytes 0.7 Absolute Eosinophils 0.1 Absolute Basophils 0.0 PT 14.1 INR 1.04 Carbonic Acid HCO3/H2CO3 Ratio ABG pH ABG pCO2 ABG pO2 ABG HCO3 ABG Total CO2 ABG O2 Saturation ABG Base Excess FiO2 Sodium 141.6 Potassium 4.7 Chloride 100 Carbon Dioxide 32 H Anion Gap 10 BUN 16 Creatinine 0.71 Est GFR ( Amer) > 60 Est GFR (Non-Af Amer) > 60 Glucose 119 H Lactic Acid Calcium 9.9 Total Bilirubin 0.4 Direct Bilirubin 0.2 Neonat Total Bilirubin Not Reportable Neonat Direct Bilirubin Not Reportable Neonat Indirect Bili Not Reportable AST 33 ALT 17 Alkaline Phosphatase 100 Troponin I Total Protein 7.7 Albumin 4.4 12/29/18 12/29/18 12/29/18 07:25 07:25 07:50 WBC RBC Hgb Hct MCV MCH MCHC RDW Plt Count Seg Neutrophils % Lymphocytes % Monocytes % Eosinophils % Basophils % Absolute Neutrophils Absolute Lymphocytes Absolute Monocytes Absolute Eosinophils Absolute Basophils PT INR Carbonic Acid 1.67 H HCO3/H2CO3 Ratio 15:1 ABG pH 7.28 L ABG pCO2 55.6 H ABG pO2 128.7 H ABG HCO3 25.4 H ABG Total CO2 27.1 H ABG O2 Saturation 98.1 H ABG Base Excess -2.2 FiO2 50% Sodium Potassium Chloride Carbon Dioxide Anion Gap BUN Creatinine Est GFR ( Amer) Est GFR (Non-Af Amer) Glucose Lactic Acid 1.4 Calcium Total Bilirubin Direct Bilirubin Neonat Total Bilirubin Neonat Direct Bilirubin Neonat Indirect Bili AST ALT Alkaline Phosphatase Troponin I < 0.012 Total Protein Albumin Chest X-Ray 02/26/19 07:18 IMPRESSION: No change. - Vital Signs Vital signs: Temp Pulse Resp BP Pulse Ox 98.5 F 100 18 130/70 H 94 12/29/18 07:30 12/29/18 07:30 12/29/18 08:01 12/29/18 08:01 12/29/18 08:01 - Laboratory Result Diagrams: 12/29/18 07:25 12/29/18 07:25 Laboratory results interpreted by me: 12/29/18 12/29/18 07:25 07:50 Carbonic Acid 1.67 H ABG pH 7.28 L ABG pCO2 55.6 H ABG pO2 128.7 H ABG HCO3 25.4 H ABG Total CO2 27.1 H ABG O2 Saturation 98.1 H Carbon Dioxide 32 H Glucose 119 H Critical Care Note - Critical Care Note Total time excluding time spent on procedures (mins): 35 Comments: Critical care time 35 minutes exclusive from separate billable procedures for a patient requiring complex medical decision making, and high potential for clinical deterioration. In a patient with acute on chronic respiratory failure requiring close monitoring, on BiPAP, repeat evaluations review of prior charts. Time spent obtaining history from patient or surrogate, discussions with consultants, development of treatment plan with patient or surrogate, evaluation of patient's response to treatment, examination of patient, ordering and performing treatments and interventions, ordering and review of laboratory studies, re-evaluation of patient's condition, ordering and review of radiographic studies and review of old charts Discharge - Discharge Clinical Impression: Acute respiratory acidosis Acute and chronic respiratory failure Qualifiers: Respiratory failure complication: hypoxia and hypercapnia Qualified Code(s): J96.21 - Acute and chronic respiratory failure with hypoxia; J96.22 - Acute and chronic respiratory failure with hypercapnia Pneumonia Qualifiers: Pneumonia type: due to unspecified organism Laterality: left Lung location: lower lobe of lung Qualified Code(s): J18.1 - Lobar pneumonia, unspecified organism Back pain Qualifiers: Back pain location: thoracic back pain Chronicity: chronic Back pain laterality : bilateral Qualified Code(s): M54.6 - Pain in thoracic spine; G89.29 - Other chronic pain Condition: Stable Disposition: ADMITTED INPATIENT Admitting Provider: Hospitalist - Dr. Peralta Unit Admitted: IMCU Referrals: MASOOD DIANE PA-C [Primary Care Provider] - Follow up as needed
[2018-12-29 07:45] LABS: ABSOLUTE EOSINOPHILS # (AUTO) 0.1 10^3/uL (0.0-0.6); ABSOLUTE LYMPHOCYTES (AUTO) 1.6 10^3/uL (0.5-4.7); ABSOLUTE MONOCYTES (AUTO) 0.7 10^3/uL (0.1-1.4); ABSOLUTE NEUT (AUTO) 4.3 10^3/uL (1.7-8.2); BASOPHILS % (AUTO) 0.6 % (0-2); EOSINOPHILS % (AUTO) 1.5 % (0-6); HEMATOCRIT 39.8 % (36.0-47.0); HEMOGLOBIN 13.1 g/dL (12.0-15.5); LYMPHOCYTES % (AUTO) 23.5 % (13-45); MEAN CORPUSCULAR HEMOGLOBIN 29.1 pg (27.0-33.4); MEAN CORPUSCULAR VOLUME 88 fl (80-97); MONOCYTES % (AUTO) 9.8 % (3-13); PLATELET COUNT 288 10^3/uL (150-450); SEGMENTED NEUTROPHILS % (AUTO) 64.6 % (42-78); TOTAL CELLS COUNTED % (AUTO) 100 %; WHITE BLOOD COUNT 6.7 10^3/uL (4.0-10.5)
--- NOTE | 2018-12-29 07:47 | RADIOLOGY REPORT (SQ) ---
CLINICAL HISTORY: resp distress COMPARISON: November 24, 2018. TECHNIQUE: XR CHEST 1 VIEW 12/29/2018 7:18 AM PUBLIC WORKS DIRECTOR FINDINGS: Cardiac silhouette is normal in size. Lungs are hyperinflated. There is an unchanged vascular stent likely in the proximal left subclavian artery. There is stable right apical pleural parenchymal scarring. There is no pneumothorax. There are no acute osseous findings. There is a small hiatal hernia. IMPRESSION: No change.
[2018-12-29 07:48] LABS: INTERNATIONAL RATION (INR) 1.04; PROTHROMBIN TIME 14.1 SEC (11.4-15.4)
[2018-12-29] MEDS ORDERED: AZITHROMYCIN INJ 500 MG VIAL IV ONE (07:56)
[2018-12-29] MEDS ORDERED: CEFTRIAXONE 1 GM/D5W RTU 1 GM/50 ML RTUPB IV ONE (07:56)
[2018-12-29 08:06] LABS: ARTERIAL BLOOD BASE EXCESS -2.2 mmol/L; ARTERIAL BLOOD H2CO3 1.67 mmol/L (1.05-1.35); ARTERIAL BLOOD HCO3 25.4 mmol/L (20-24); ARTERIAL BLOOD O2 SATURATION 98.1 % (94-98); ARTERIAL BLOOD PCO2 55.6 mmHg (35-45); ARTERIAL BLOOD PH 7.28 (7.35-7.45); ARTERIAL BLOOD PO2 128.7 mmHg (80-100); ARTERIAL BLOOD TOTAL CO2 27.1 mmol/L (21-25)
[2018-12-29 08:09] LABS: ALANINE AMINOTRANSFERASE 17 U/L (9-52); ALBUMIN 4.4 g/dL (3.5-5.0); ALKALINE PHOSPHATASE 100 U/L (38-126); ANION GAP 10 (5-19); ASPARTATE AMINO TRANSFERASE 33 U/L (14-36); BILIRUBIN,DIRECT 0.2 mg/dL (0.0-0.4); BILIRUBIN,TOTAL 0.4 mg/dL (0.2-1.3); BLOOD UREA NITROGEN 16 mg/dL (7-20); CALCIUM 9.9 mg/dL (8.4-10.2); CARBON DIOXIDE 32 mmol/L (22-30); CHLORIDE 100 mmol/L (98-107); GLUCOSE 119 mg/dL (75-110); POTASSIUM 4.7 mmol/L (3.6-5.0); SODIUM 141.6 mmol/L (137-145); TOTAL PROTEIN 7.7 g/dL (6.3-8.2)
[2018-12-29 08:11] LABS: ARTERIAL BLOOD FIO2 50%
[2018-12-29 09:53] LABS: APPEARANCE,URINE SLIGHTLY-CLOUDY; BILIRUBIN,URINE NEGATIVE (NEGATIVE); COLOR,URINE YELLOW; GLUCOSE, URINE NEGATIVE (NEGATIVE); KETONES,URINE TRACE mg/dL (NEGATIVE); LEUKOCYTE ESTERASE,URINE NEGATIVE (NEGATIVE); NITRITE,URINE NEGATIVE (NEGATIVE); PROTEIN,URINE NEGATIVE (NEGATIVE); URINE SPECIFIC GRAVITY 1.025; UROBILINOGEN,URINE NEGATIVE mg/dL (<2.0)
[2018-12-29] MEDS: APIXABAN 5 MG TABLET PO SCH ×2 (10:27→18:09)
[2018-12-29 10:45] LABS: A TYPE INFLUENZA AG NEGATIVE (NEGATIVE); B INFLUENZA AG NEGATIVE (NEGATIVE)
--- NOTE | 2018-12-29 11:15 | PDOC H&P ---
History of Present Illness Admission Date/PCP: 12/29/18 08:43 MASOOD DIANE PA-C Patient complains of: SOB, cough History of Present Illness: MJ SHELTON is a 68 year old female with a PMH of paroxysmal AFib, PE x 2 on Eliquis, COPD on 2L of O2 at home, CAD with prior stenting, hypertension, right lung mass-follows up with Dr. Gomez who presented with SOB, wheezing and cough. Patient says she has been having progressive SOB, minimally productive cough and wheezing for the pats 7 days. She went to the ER on 12/25 and was found to have a left posterior lobe pneumonia on CT. She was treated for COPD exacerbation as well and was discharged on Levaquin. She says she felt slightly better but had recurrence of similar symptoms in the past 3 days at home hence called EMS. She was saturating at 77% when assessed by EMS and had significant wheezing. She was initially very tachypneic in the ER and was considered for intubation initially but she says she is a DNR/DNI. She did improve with IV steroids and breathing treatments. Upon encounter, she is saturating well on BIPAP but says it's extremely uncomfortable and does not want to be on it. She verbalizes she is a DNR/DNI and that she does not want any intubation or chest compressions if it comes down to it. Past Medical History Cardiac Medical History: Reports: Atrial Fibrillation, Congestive Heart Failure, Hyperlipidema, Hypertension Pulmonary Medical History: Reports: Chronic Obstructive Pulmonary Disease (COPD) Psychiatric Medical History: Reports: Depression Hematology: Reports: Anemia Past Surgical History Past Surgical History: Reports: Cardiac Catheterization - stent x 1, Vascular Surgery Social History Smoking Status: Current Every Day Smoker Frequency of Alcohol Use: None Hx Recreational Drug Use: No Drugs: None Hx Prescription Drug Abuse: No Family History Family History: Reviewed & Not Pertinent Parental Family History Reviewed: Yes - no premature CAD Children Family History Reviewed: No Sibling(s) Family History Reviewed.: No Medication/Allergy Home Medications: Gabapentin [Neurontin 300 mg Capsule] 300 mg PO Q8 05/18/18 Hydrocodone/Acetaminophen [Hydrocodone-Acetamin 5-325 mg] 1 tab PO Q8HP PRN 05/18/18 Amlodipine Besylate [Norvasc 2.5 mg Tablet] 2.5 mg PO DAILY 08/21/18 Fluticasone/Umeclidin/Vilanter [Trelegy Ellipta 100-62.5-25] 1 each IH DAILY 08/21/18 Apixaban [Eliquis 5 mg Tablet] 5 mg PO BID #60 tablet 08/22/18 Guaifenesin [Mucinex] 1,200 mg PO BID #30 tab.er.12h 11/17/18 Albuterol Sulfate [Proair Hfa Inhalation Aerosol 8.5 gm Mdi] 2 puff IH Q6 12/29/18 Albuterol Sulfate [Ventolin 0.083% Neb 2.5 mg/3 ml Ampul] 1 vial NEB RTQ6HP PRN 12/29/18 Budesonide [Pulmicort] 0.5 mg IH RTBID 12/29/18 Buspirone HCl [Buspar 10 mg Tablet] 10 mg PO BID 12/29/18 Calcium Carbonate [Calcium] 500 mg PO DAILY 12/29/18 Cetirizine HCl [Zyrtec 10 mg Tablet] 10 mg PO DAILY 12/29/18 Cholecalciferol (Vitamin D3) [Vitamin D3 1000 Unit Tablet] 1,000 unit PO DAILY 12/29/18 Citalopram Hydrobromide [Celexa 20 mg Tablet] 20 mg PO DAILY 12/29/18 Duloxetine HCl [Cymbalta] 30 mg PO DAILY 12/29/18 Hydroxyzine HCl [Atarax 10 mg Tablet] 10 mg PO Q6HP PRN 12/29/18 Mirtazapine 7.5 mg PO QHS 12/29/18 Omeprazole 40 mg PO DAILY 12/29/18 Ranitidine HCl [Zantac 150 mg Tablet] 150 mg PO BID 12/29/18 Allergies/Adverse Reactions: No Known Allergies Allergy (Verified 12/29/18 10:23) Review of Systems All systems: reviewed and no additional remarkable complaints except as stated - as mentioned in HPI Physical Exam Vital Signs: Temp Pulse Resp BP Pulse Ox 98.5 F 100 20 131/79 H 99 12/29/18 07:30 12/29/18 07:30 12/29/18 10:31 12/29/18 10:31 12/29/18 10:31 Intake & Output 12/28/18 12/29/18 12/30/18 06:59 06:59 06:59 Intake Total 50 Balance 50 Weight 83 lb 8.883 oz General appearance: PRESENT: mild distress Head exam: PRESENT: atraumatic, normocephalic Eye exam: PRESENT: conjunctiva pink, EOMI, PERRLA. ABSENT: scleral icterus Ear exam: PRESENT: normal external ear exam Mouth exam: PRESENT: moist, tongue midline Neck exam: ABSENT: carotid bruit, JVD, lymphadenopathy, thyromegaly Respiratory exam: PRESENT: decreased breath sounds, wheezes. ABSENT: rales, rhonchi Pulses: PRESENT: normal dorsalis pedis pul GI/Abdominal exam: PRESENT: normal bowel sounds, soft. ABSENT: distended, guarding, mass, organolmegaly, rebound, tenderness Rectal exam: PRESENT: deferred Neurological exam: PRESENT: alert, awake, oriented to person, oriented to place, oriented to time, oriented to situation, CN II-XII grossly intact. ABSENT: motor sensory deficit Results Laboratory Results: 12/29/18 07:25 12/29/18 07:25 12/29/18 12/29/18 12/29/18 07:25 07:25 07:25 WBC 6.7 RBC 4.50 Hgb 13.1 Hct 39.8 MCV 88 MCH 29.1 MCHC 33.0 RDW 14.0 Plt Count 288 Seg Neutrophils % 64.6 Lymphocytes % 23.5 Monocytes % 9.8 Eosinophils % 1.5 Basophils % 0.6 Absolute Neutrophils 4.3 Absolute Lymphocytes 1.6 Absolute Monocytes 0.7 Absolute Eosinophils 0.1 Absolute Basophils 0.0 Carbonic Acid HCO3/H2CO3 Ratio ABG pH ABG pCO2 ABG pO2 ABG HCO3 ABG O2 Saturation ABG Base Excess FiO2 Sodium 141.6 Potassium 4.7 Chloride 100 Carbon Dioxide 32 H Anion Gap 10 BUN 16 Creatinine 0.71 Est GFR ( Amer) > 60 Est GFR (Non-Af Amer) > 60 Glucose 119 H Lactic Acid 1.4 Calcium 9.9 Total Bilirubin 0.4 AST 33 ALT 17 Alkaline Phosphatase 100 Total Protein 7.7 Albumin 4.4 Urine Color Urine Appearance Urine pH Ur Specific [place] Urine Protein Urine Glucose (UA) Urine Ketones Urine Blood Urine Nitrite Ur Leukocyte Esterase Urine WBC (Auto) Urine RBC (Auto) 12/29/18 12/29/18 07:50 09:20 WBC RBC Hgb Hct MCV MCH MCHC RDW Plt Count Seg Neutrophils % Lymphocytes % Monocytes % Eosinophils % Basophils % Absolute Neutrophils Absolute Lymphocytes Absolute Monocytes Absolute Eosinophils Absolute Basophils Carbonic Acid 1.67 H HCO3/H2CO3 Ratio 15:1 ABG pH 7.28 L ABG pCO2 55.6 H ABG pO2 128.7 H ABG HCO3 25.4 H ABG O2 Saturation 98.1 H ABG Base Excess -2.2 FiO2 50% Sodium Potassium Chloride Carbon Dioxide Anion Gap BUN Creatinine Est GFR ( Amer) Est GFR (Non-Af Amer) Glucose Lactic Acid Calcium Total Bilirubin AST ALT Alkaline Phosphatase Total Protein Albumin Urine Color YELLOW Urine Appearance SLIGHTLY-CLOUDY Urine pH 5.0 Ur Specific [place] 1.025 Urine Protein NEGATIVE Urine Glucose (UA) NEGATIVE Urine Ketones TRACE H Urine Blood NEGATIVE Urine Nitrite NEGATIVE Ur Leukocyte Esterase NEGATIVE Urine WBC (Auto) 6 Urine RBC (Auto) 1 12/29/18 07:25 Troponin I < 0.012 Impressions: Chest X-Ray 12/29/18 07:18 IMPRESSION: No change. Assessment & Plan - Diagnosis (1) Acute on chronic respiratory failure with hypoxemia Is this a current diagnosis for this admission?: Yes Plan: Secondary to COPD exacerbation. Currently saturating well on BIPAP. (2) COPD exacerbation Is this a current diagnosis for this admission?: Yes Plan: Will continue IV steroids. Scheduled breathing treatments. (3) Pneumonia Qualifiers: Pneumonia type: due to unspecified organism Laterality: left Lung location: lower lobe of lung Qualified Code(s): J18.1 - Lobar pneumonia, unspecified organism Is this a current diagnosis for this admission?: Yes Plan: CT on 12/25 reviewed. She does have left posterior lobe PNA. Will start her on azithromycin and Levaquin. Will also order for flu testing and sputum culture. (4) Paroxysmal atrial fibrillation Is this a current diagnosis for this admission?: Yes Plan: Currently in sinus rhythm. Will resume Eliquis. - Time Time Spent: 30 to 50 Minutes
[2018-12-29] MEDS: IPRATROPIUM/ALBUTEROL 0.5-2.5 MG/3 ML AMPUL NEB SCH ×3 (12:43→20:13)
[2018-12-29] MEDS: HYDROCODONE/ACETAMINOPHEN 5-325 MG TABLET PO PRN ×2 (14:36→22:34)
[2018-12-29] MEDS: GABAPENTIN 300 MG CAPSULE PO PRN (14:36)
[2018-12-29] MEDS: METHYLPREDNISOLONE INJ 40 MG/1 ML SDV IV SCH ×2 (14:36→21:40)
--- NOTE | 2018-12-29 19:05 | Progress Note ---
Provider Note Provider Note: ACP Discussion: Patient verbalizes she is a DNR/DNI and that she does not want any intubation or chest compressions if it comes down to it. She says her daughter is her surrogate decision maker.
[2018-12-29] MEDS: MIRTAZAPINE 15 MG TABLET PO SCH (21:40)
[2018-12-29] MEDS: BUSPIRONE HCL 10 MG TABLET PO SCH (21:40)
[2018-12-30] MEDS: IPRATROPIUM/ALBUTEROL 0.5-2.5 MG/3 ML AMPUL NEB SCH ×6 (00:23→20:07)
[2018-12-30] MEDS: METHYLPREDNISOLONE INJ 40 MG/1 ML SDV IV SCH ×3 (05:37→22:55)
--- NOTE | 2018-12-30 09:30 | EKG REPORT ---
SEVERITY:- ABNORMAL ECG - SINUS TACHYCARDIA BIATRIAL ABNORMALITIES RIGHT AXIS DEVIATION CONSIDER LEFT VENTRICULAR HYPERTROPHY : Confirmed by: Lory Vasques 30-Dec-2018 09:29:41
[2018-12-30] MEDS: CEFTRIAXONE 1 GM/D5W RTU 1 GM/50 ML RTUPB IV SCH (10:19)
[2018-12-30] MEDS: BUSPIRONE HCL 10 MG TABLET PO SCH ×2 (10:20→22:55)
[2018-12-30] MEDS: AZITHROMYCIN 250 MG TABLET PO SCH (10:21)
[2018-12-30] MEDS: ASPIRIN 81 MG TABLET, CHEWABLE PO SCH (10:21)
[2018-12-30] MEDS: APIXABAN 5 MG TABLET PO SCH ×2 (10:22→18:47)
[2018-12-30] MEDS: CITALOPRAM HYDROBROMIDE 20 MG TABLET PO SCH (10:22)
[2018-12-30] MEDS: HYDROCODONE/ACETAMINOPHEN 5-325 MG TABLET PO PRN (15:07)
--- NOTE | 2018-12-30 18:09 | PDOC PROGRESS REPORT ---
Subjective Progress Note for:: 12/30/18 Subjective:: No adverse events overnight. When I came into the room, she was on 2 L nasal cannula, and she was seemingly in good spirits and appeared very comfortable. When I asked her how she was doing, her countenance immediately changed, and she began to complain about how she was hurting all over and the hydrocodone was just not enough to do it for her pain. Her nurses tell me she has not had anything for pain all day, because she has not asked for as needed medication. Reason For Visit: ACUTE HYPOXIC RESP FAILURE,COPD EXACERBATION, Physical Exam Vital Signs: Temp Pulse Resp BP Pulse Ox 98.1 F 103 H 16 127/54 H 95 12/30/18 16:13 12/30/18 16:13 12/30/18 16:13 12/30/18 16:13 12/30/18 16:13 Intake & Output 12/29/18 12/30/18 12/31/18 06:59 06:59 06:59 Intake Total 50 642 Output Total 225 Balance -175 642 Weight 62.4 kg General appearance: PRESENT: no acute distress, cooperative, disheveled, thin Respiratory exam: PRESENT: decreased breath sounds, prolonged expiratory phas, rhonchi, symmetrical, unlabored. ABSENT: accessory muscle use, chest wall tenderness, rales, tachypnea, wheezes Cardiovascular exam: PRESENT: RRR, +S1, +S2 Pulses: PRESENT: normal carotid pulses Vascular exam: PRESENT: normal capillary refill GI/Abdominal exam: PRESENT: normal bowel sounds, soft. ABSENT: distended, guarding, rebound, tenderness Extremities exam: ABSENT: clubbing, pedal edema Musculoskeletal exam: PRESENT: normal inspection. ABSENT: deformity Neurological exam: PRESENT: alert, awake, oriented to person, oriented to place, oriented to time Psychiatric exam: PRESENT: anxious Skin exam: PRESENT: dry, warm Results Laboratory Results: 12/29/18 07:25 12/29/18 07:25 12/29/18 09:20 Clean Catch Midstream Urine Culture - Final Mixed Urogenital Katharina 12/29/18 07:25 Troponin I < 0.012 Impressions: Chest X-Ray 12/29/18 07:18 IMPRESSION: No change. Assessment & Plan - Diagnosis (1) Acute and chronic respiratory failure Qualifiers: Respiratory failure complication: hypoxia and hypercapnia Qualified Code(s): J96.21 - Acute and chronic respiratory failure with hypoxia; J96.22 - Acute and chronic respiratory failure with hypercapnia Is this a current diagnosis for this admission?: Yes Plan: Currently stable on 2 L nasal cannula (2) Pneumonia Qualifiers: Pneumonia type: due to unspecified organism Laterality: left Lung location: lower lobe of lung Qualified Code(s): J18.1 - Lobar pneumonia, unspecified organism Is this a current diagnosis for this admission?: Yes Plan: Doing well on current antibiotic regimen, will continue the current regimen and then look to de-escalate to an oral antibiotic in a day or 2 (3) COPD exacerbation Is this a current diagnosis for this admission?: Yes Plan: Improving with steroids and bronchodilators - Time Time Spent with patient: 25-34 minutes
[2018-12-30] MEDS: MIRTAZAPINE 15 MG TABLET PO SCH (22:55)
[2018-12-31] MEDS: IPRATROPIUM/ALBUTEROL 0.5-2.5 MG/3 ML AMPUL NEB SCH ×6 (00:11→19:54)
[2018-12-31] MEDS: METHYLPREDNISOLONE INJ 40 MG/1 ML SDV IV SCH ×3 (05:53→22:26)
[2018-12-31] MEDS: AZITHROMYCIN 250 MG TABLET PO SCH (09:15)
[2018-12-31] MEDS: HYDROCODONE/ACETAMINOPHEN 5-325 MG TABLET PO PRN ×2 (09:16→18:33)
[2018-12-31] MEDS: ASPIRIN 81 MG TABLET, CHEWABLE PO SCH (09:16)
[2018-12-31] MEDS: APIXABAN 5 MG TABLET PO SCH ×2 (09:16→18:32)
[2018-12-31] MEDS: CITALOPRAM HYDROBROMIDE 20 MG TABLET PO SCH (09:16)
[2018-12-31] MEDS: BUSPIRONE HCL 10 MG TABLET PO SCH ×2 (09:16→22:26)
[2018-12-31] MEDS: CEFTRIAXONE 1 GM/D5W RTU 1 GM/50 ML RTUPB IV SCH (09:18)
--- NOTE | 2018-12-31 17:57 | PDOC PROGRESS REPORT ---
Subjective Progress Note for:: 12/31/18 Subjective:: No adverse events overnight. No new complaints. Vital signs been stable. Stable at rest on 2 L nasal cannula, but when she does something as simple as get up to the bedside commode with assistance, her oxygen saturations dropped precipitously down to the low 70s and it takes her a while for her breathing to improve when she rests. She was asleep and resting comfortably when I came in the room, but when she woke up and started talking to me she started telling me about how the pain medication still not helping her. The nurses again tell me that she is not really asking for any pain medication. She got 1 dose of hydrocodone this morning and none yesterday. Reason For Visit: ACUTE HYPOXIC RESP FAILURE,COPD EXACERBATION, Physical Exam Vital Signs: Temp Pulse Resp BP Pulse Ox 97.9 F 90 16 145/59 H 100 12/31/18 15:28 12/31/18 16:39 12/31/18 16:39 12/31/18 15:28 12/31/18 16:39 Intake & Output 12/30/18 12/31/18 01/01/19 06:59 06:59 06:59 Intake Total 50 642 237 Output Total 225 Balance -175 642 237 Weight 62.4 kg 60.4 kg General appearance: PRESENT: no acute distress, cooperative, disheveled, thin Respiratory exam: PRESENT: decreased breath sounds, prolonged expiratory phase, symmetrical, unlabored, faint end expiratory wheezes. ABSENT: accessory muscle use, chest wall tenderness, rales, rhonchi, tachypnea Cardiovascular exam: PRESENT: RRR, +S1, +S2 Pulses: PRESENT: normal carotid pulses Vascular exam: PRESENT: normal capillary refill GI/Abdominal exam: PRESENT: normal bowel sounds, soft. ABSENT: distended, guarding, rebound, tenderness Extremities exam: ABSENT: clubbing, pedal edema Musculoskeletal exam: PRESENT: normal inspection. ABSENT: deformity Neurological exam: PRESENT: alert, awake, oriented to person, oriented to place, oriented to time Psychiatric exam: PRESENT: anxious Skin exam: PRESENT: dry, warm Results Laboratory Results: 12/29/18 07:25 12/29/18 07:25 12/29/18 07:25 Troponin I < 0.012 Impressions: Chest X-Ray 12/29/18 07:18 IMPRESSION: No change. Assessment & Plan - Diagnosis (1) Acute and chronic respiratory failure Qualifiers: Respiratory failure complication: hypoxia and hypercapnia Qualified Code(s): J96.21 - Acute and chronic respiratory failure with hypoxia; J96.22 - Acute and chronic respiratory failure with hypercapnia Is this a current diagnosis for this admission?: Yes Plan: Currently stable on 2 L nasal cannula, desaturates with minimal exertion. She sees Dr. Gomez as an outpatient, and if she continues to have oxygen desaturati on with minimal exertion after a few more days of treatment, I will likely get him to come in and see her. (2) Pneumonia Qualifiers: Pneumonia type: due to unspecified organism Laterality: left Lung location: lower lobe of lung Qualified Code(s): J18.1 - Lobar pneumonia, uns pecified organism Is this a current diagnosis for this admission?: Yes Plan: Doing well on current antibiotic regimen, will continue the current regimen and then look to de-escalate to an oral antibiotic in a day or 2 (3) COPD exacerbation Is this a current diagnosis for this admission?: Yes Plan: Improving with steroids and bronchodilators, will continue the current therapy for today and possibly de-escalate tomorrow or the next day. - Time Time Spent with patient: 25-34 minutes
[2018-12-31] MEDS: MIRTAZAPINE 15 MG TABLET PO SCH (22:26)
[2019-01-01] MEDS: IPRATROPIUM/ALBUTEROL 0.5-2.5 MG/3 ML AMPUL NEB SCH ×6 (00:23→21:29)
[2019-01-01] MEDS: METHYLPREDNISOLONE INJ 40 MG/1 ML SDV IV SCH ×3 (05:19→21:11)
[2019-01-01] MEDS: CEFTRIAXONE 1 GM/D5W RTU 1 GM/50 ML RTUPB IV SCH (09:46)
[2019-01-01] MEDS: APIXABAN 5 MG TABLET PO SCH ×2 (09:49→17:01)
[2019-01-01] MEDS: ASPIRIN 81 MG TABLET, CHEWABLE PO SCH (09:49)
[2019-01-01] MEDS: HYDROCODONE/ACETAMINOPHEN 5-325 MG TABLET PO PRN ×2 (09:50→19:31)
[2019-01-01] MEDS: AZITHROMYCIN 250 MG TABLET PO SCH (09:50)
[2019-01-01] MEDS: BUSPIRONE HCL 10 MG TABLET PO SCH ×2 (09:51→21:11)
[2019-01-01] MEDS: CITALOPRAM HYDROBROMIDE 20 MG TABLET PO SCH (09:51)
--- NOTE | 2019-01-01 10:13 | Physician Advisory Note ---
Physician Advisor ProgressNote .: [facility], I have reviewed the medical record for this patient. Physician Advisor Statement: VERY nice description of how, even though she is no longer in distress at rest on O2, she desaturates precipitously into the 70s with the minimal exertion of using BSC. This "paints the picture" of how sick she actually is, which makes it clear why she still needs to be in hospital. ECHO 2018 states "severe pulmonary hypertension" with low normal EF, unable to assess diast fn. Please consider documentin. Pneumonia: whenever a pt has PNA, please state whether you believe it is likely Gram-positive, gram-neg, MRSA, aspiration, or viral type. If you believe it is gram-neg or aspiration, & are treating as such, please also state the reasons you suspect gram-neg (underlying lung dz, immunosuppression/DM/malnutrition, recent admission or SNF stay, ...) or aspiration (dysphagia/previous aspiration/alcoholism/CVA/feeding tube, ...), to support this assertion. 2. Do you believe pt has "severe pulmonary hypertension", or has this been ruled out? Thanks! CK
--- NOTE | 2019-01-01 16:51 | PDOC PROGRESS REPORT ---
Subjective Progress Note for:: 01/01/19 Subjective:: No adverse events overnight. No new complaints. She is in good spirits when I come in the room but when we started to talk about her medical condition she immediately sours. Despite her often dramatic descriptions of her condition, she still desaturates quickly with minimal exertion such as getting to the bedside commode. Reason For Visit: ACUTE HYPOXIC RESP FAILURE,COPD EXACERBATION, Physical Exam Vital Signs: Temp Pulse Resp BP Pulse Ox 98.2 F 96 16 181/66 H 97 01/01/19 12:16 01/01/19 15:45 01/01/19 15:45 01/01/19 12:16 01/01/19 15:45 Intake & Output 12/31/18 01/01/19 01/02/19 06:59 06:59 06:59 Intake Total 642 659 50 Output Total 150 Balance 642 509 50 Weight 60.4 kg 62.4 kg General appearance: PRESENT: no acute distress, cooperative, disheveled, thin Respiratory exam: PRESENT: decreased breath sounds, prolonged expiratory phase, symmetrical, unlabored. ABSENT: accessory muscle use, chest wall tenderness, rales, rhonchi, tachypnea, wheezes Cardiovascular exam: PRESENT: RRR, +S1, +S2 Pulses: PRESENT: normal carotid pulses Vascular exam: PRESENT: normal capillary refill GI/Abdominal exam: PRESENT: normal bowel sounds, soft. ABSENT: distended, guarding, rebound, tenderness Extremities exam: ABSENT: clubbing, pedal edema Musculoskeletal exam: PRESENT: normal inspection. ABSENT: deformity Neurological exam: PRESENT: alert, awake, oriented to person, oriented to place, oriented to time Psychiatric exam: PRESENT: anxious Skin exam: PRESENT: dry, warm Results Laboratory Results: 12/29/18 07:25 12/29/18 07:25 12/29/18 07:25 Troponin I < 0.012 Impressions: Chest X-Ray 12/29/18 07:18 IMPRESSION: No change. Assessment & Plan - Diagnosis (1) Acute and chronic respiratory failure Qualifiers: Respiratory failure complication: hypoxia and hypercapnia Qualified Code(s): J96.21 - Acute and chronic respiratory failure with hypoxia; J96.22 - Acute and chronic respiratory failure with hypercapnia Is this a current diagnosis for this admission?: Yes Plan: Slightly improved today, not wheezing anymore, but breath sounds are still very diminished. We will continue her current treatments. We will still consider pulmonology consultation if she continues to desaturate rapidly with activity despite aggressive medical therapy. (2) Pneumonia Qualifiers: Pneumonia type: due to unspecified organism Laterality: left Lung location: lower lobe of lung Qualified Code(s): J18.1 - Lobar pneumonia, unspecified organism Is this a current diagnosis for this admission?: Yes Plan: Suspected to be a community-acquired pneumonia. Organism is uncertain. Continue Rocephin and azithromycin. (3) COPD exacerbation Is this a current diagnosis for this admission?: Yes Plan: Improving with steroids and bronchodilators, will continue the current therapy for today and likely through tomorrow as well. Depending on her clinical condition, may consider de-escalation of the day or 2. (4) Moderate to severe pulmonary hypertension Is this a current diagnosis for this admission?: Yes Plan: Probably related to her COPD. This was seen on echocardiogram in May 2018. She continues on oxygen. I do not know if she would tolerate a diuretic at this time. - Time Time Spent with patient: 25-34 minutes
[2019-01-01] MEDS: GABAPENTIN 300 MG CAPSULE PO PRN (19:31)
[2019-01-01] MEDS: MIRTAZAPINE 15 MG TABLET PO SCH (21:12)
[2019-01-02] MEDS: IPRATROPIUM/ALBUTEROL 0.5-2.5 MG/3 ML AMPUL NEB SCH ×7 (00:29→23:40)
[2019-01-02] MEDS: METHYLPREDNISOLONE INJ 40 MG/1 ML SDV IV SCH (05:09)
[2019-01-02] MEDS: BUSPIRONE HCL 10 MG TABLET PO SCH ×2 (10:12→21:07)
[2019-01-02] MEDS: CITALOPRAM HYDROBROMIDE 20 MG TABLET PO SCH (10:13)
[2019-01-02] MEDS: APIXABAN 5 MG TABLET PO SCH ×2 (10:13→17:43)
[2019-01-02] MEDS: AZITHROMYCIN 250 MG TABLET PO SCH (10:13)
[2019-01-02] MEDS: ASPIRIN 81 MG TABLET, CHEWABLE PO SCH (10:13)
[2019-01-02] MEDS: HYDROCODONE/ACETAMINOPHEN 5-325 MG TABLET PO PRN ×2 (10:23→19:35)
[2019-01-02] MEDS: CEFTRIAXONE 1 GM/D5W RTU 1 GM/50 ML RTUPB IV SCH (10:26)
--- NOTE | 2019-01-02 10:29 | PDOC PROGRESS REPORT ---
Subjective Progress Note for:: 01/02/19 Subjective:: Patient seen resting in bed. She is awake, alert, oriented x3. She denies chest pain, shortness of breath or dyspnea at rest. She continues to become easily dyspneic with minimal exertion. She has an occasional productive cough. She denies any fevers or chills overnight. She denies any nausea, vomiting or abdominal pain. She states she is trying to eat. Her appetite is poor. She denies any significant arthralgias or myalgias. Remaining review of systems are negative. Reason For Visit: ACUTE HYPOXIC RESP FAILURE,COPD EXACERBATION, Physical Exam Vital Signs: Temp Pulse Resp BP Pulse Ox 97.8 F 96 18 140/58 H 100 01/02/19 07:56 01/02/19 08:17 01/02/19 08:17 01/02/19 07:56 01/02/19 08:17 Intake & Output 01/01/19 01/02/19 01/03/19 06:59 06:59 06:59 Intake Total 659 240 Output Total 150 200 Balance 509 40 Weight 62.4 kg General appearance: PRESENT: no acute distress, thin Head exam: PRESENT: atraumatic, normocephalic Eye exam: PRESENT: conjunctiva pink, EOMI, PERRLA. ABSENT: scleral icterus Ear exam: PRESENT: normal external ear exam Mouth exam: PRESENT: moist, tongue midline Neck exam: ABSENT: carotid bruit, JVD, lymphadenopathy, thyromegaly Respiratory exam: PRESENT: decreased breath sounds - Bilaterally, rhonchi, symmetrical, unlabored Cardiovascular exam: PRESENT: RRR, systolic murmur - 2/6 left sternal border. ABSENT: diastolic murmur, rubs Pulses: PRESENT: normal dorsalis pedis pul Vascular exam: PRESENT: normal capillary refill GI/Abdominal exam: PRESENT: normal bowel sounds, soft. ABSENT: distended, guarding, mass, organolmegaly, rebound, tenderness Rectal exam: PRESENT: deferred Extremities exam: PRESENT: full ROM. ABSENT: calf tenderness, clubbing, pedal edema Neurological exam: PRESENT: alert, awake, oriented to person, oriented to place, oriented to time, oriented to situation, CN II-XII grossly intact. ABSENT: motor sensory deficit Psychiatric exam: PRESENT: appropriate affect, normal mood. ABSENT: homicidal ideation, suicidal ideation Skin exam: PRESENT: dry, intact, warm. ABSENT: cyanosis, rash Results Laboratory Results: 12/29/18 07:25 12/29/18 07:25 12/29/18 07:25 Troponin I < 0.012 Impressions: Chest X-Ray 12/29/18 07:18 IMPRESSION: No change. Assessment & Plan - Diagnosis (2) COPD exacerbation Is this a current diagnosis for this admission?: Yes Plan: Secondary to acute bronchitis. We will continue azithromycin and ceftriaxone, taper IV solumedrol to oral prednisone in preparation for discharge in the next 48 hours (3) Moderate to severe pulmonary hypertension Is this a current diagnosis for this admission?: Yes Plan: Echocardiogram done on 05/2018, shows severe pulmonary hypertension. She is followed by pulmonology and cardiology (4) Paroxysmal atrial fibrillation Is this a current diagnosis for this admission?: Yes Plan: Presently sinus rhythm continue current medications. (5) Anemia Is this a current diagnosis for this admission?: Yes Plan: Hemoglobin is presently able. (6) Atrial fibrillation Qualifiers: Atrial fibrillation type: chronic Qualified Code(s): I48.2 - Chronic atrial fibrillation Is this a current diagnosis for this admission?: Yes Plan: Rate controlled on Eliquis (7) CHF (congestive heart failure) Qualifiers: Heart failure type: unspecified Heart failure chronicity: acute Qualified Code(s): I50.9 - Heart failure, unspecified Is this a current diagnosis for this admission?: Yes Plan: Presently appears euvolemic (8) Tobacco abuse Is this a current diagnosis for this admission?: Yes Plan: Counseled. She has no plans to quit. - Time Time Spent with patient: 25-34 minutes Total Critical Time (Minutes): 25 Smoking Cessation Education: 3 to 10 minutes Medications reviewed and adjusted accordingly: Yes Anticipated discharge: Home with Homehealth Within: within 48 hours - Inpatient Certification Based on my medical assessment, after consideration of the patient's comorbid ities, presenting symptoms, or acuity I expect that the services needed warrant INPATIENT care.: Yes I certify that my determination is in accordance with my understanding of Medicare's requirements for reasonable and necessary INPATIENT services [42 CFR 412.3e].: Yes Medical Necessity: Failure to Improve With Outpatient Therapy, Need for Nebulizer Therapy and Monitoring of Response, Risk of Complication if Not Cared For in Hospital
[2019-01-02] MEDS: PREDNISONE 20 MG TABLET PO SCH (13:48)
[2019-01-02] MEDS ORDERED: CALCIUM CARBONATE 500 MG TAB.CHEW PO PRN (13:59)
[2019-01-02] MEDS: GABAPENTIN 300 MG CAPSULE PO PRN (19:35)
[2019-01-02] MEDS: MIRTAZAPINE 15 MG TABLET PO SCH (21:07)
[2019-01-03] MEDS: IPRATROPIUM/ALBUTEROL 0.5-2.5 MG/3 ML AMPUL NEB SCH ×3 (04:12→15:56)
[2019-01-03 05:55] LABS: ABSOLUTE MONOCYTES (AUTO) 0.6 10^3/uL (0.1-1.4); ABSOLUTE NEUT (AUTO) 7.7 10^3/uL (1.7-8.2); HEMATOCRIT 26.6 % (36.0-47.0); LYMPHOCYTES % (AUTO) 10.8 % (13-45); MEAN CORPUSCULAR HEMOGLOBIN 29.9 pg (27.0-33.4); MEAN CORPUSCULAR HGB CONC 33.8 g/dL (32.0-36.0); MEAN CORPUSCULAR VOLUME 88 fl (80-97); PLATELET COUNT 340 10^3/uL (150-450); RED BLOOD COUNT 3.01 10^6/uL (3.72-5.28); RED CELL DISTRIBUTION WIDTH 14.3 % (11.5-14.0); SEGMENTED NEUTROPHILS % (AUTO) 83.2 % (42-78); TOTAL CELLS COUNTED % (AUTO) 100 %; WHITE BLOOD COUNT 9.3 10^3/uL (4.0-10.5)
[2019-01-03 06:05] LABS: ANION GAP 6 (5-19); BLOOD UREA NITROGEN 33 mg/dL (7-20); CALCIUM 9.9 mg/dL (8.4-10.2); CARBON DIOXIDE 34 mmol/L (22-30); CHLORIDE 104 mmol/L (98-107); GLUCOSE 84 mg/dL (75-110); POTASSIUM 5.9 mmol/L (3.6-5.0); SODIUM 144.3 mmol/L (137-145)
[2019-01-03] MEDS: GABAPENTIN 300 MG CAPSULE PO PRN ×2 (08:45→21:01)
[2019-01-03] MEDS: HYDROCODONE/ACETAMINOPHEN 5-325 MG TABLET PO PRN ×2 (08:45→16:59)
[2019-01-03] MEDS: CEFTRIAXONE 1 GM/D5W RTU 1 GM/50 ML RTUPB IV SCH (09:18)
[2019-01-03] MEDS: AZITHROMYCIN 250 MG TABLET PO SCH (09:23)
[2019-01-03] MEDS: BUSPIRONE HCL 10 MG TABLET PO SCH ×2 (09:24→21:00)
[2019-01-03] MEDS: CITALOPRAM HYDROBROMIDE 20 MG TABLET PO SCH (09:24)
[2019-01-03] MEDS: APIXABAN 5 MG TABLET PO SCH ×2 (09:24→16:59)
[2019-01-03] MEDS: PREDNISONE 20 MG TABLET PO SCH (09:24)
[2019-01-03] MEDS: ASPIRIN 81 MG TABLET, CHEWABLE PO SCH (09:24)
[2019-01-03] MEDS ORDERED: IPRATROPIUM/ALBUTEROL 0.5-2.5 MG/3 ML AMPUL NEB PRN (10:09)
[2019-01-03] MEDS: METHOCARBAMOL 500 MG TABLET PO PRN ×2 (10:50→21:01)
[2019-01-03] MEDS: AMLODIPINE BESYLATE 2.5 MG TABLET PO SCH (10:50)
--- NOTE | 2019-01-03 11:06 | PDOC PROGRESS REPORT ---
Subjective Progress Note for:: 01/03/19 Subjective:: Patient seen resting in bed. She is awake, alert, oriented x3. She denies chest pain, shortness of breath or dyspnea at rest. She continues to become easily dyspneic with minimal exertion. Her cough is slowly improving. She has an occasional productive cough. She denies any fevers or chills overnight. She denies any nausea, vomiting or abdominal pain. She states she is trying to eat. Her appetite is poor. She is extremely weak. She is contemplating going for short term rehab post discharge. She had severe pain in her back overnight. She states this is a chronic problem that waxes and wanes. She denies any other significant arthralgias or myalgias. Remaining review of systems are negative. Reason For Visit: ACUTE HYPOXIC RESP FAILURE,COPD EXACERBATION, Physical Exam Vital Signs: Temp Pulse Resp BP Pulse Ox 97.6 F 86 20 131/67 H 98 01/03/19 07:39 01/03/19 08:26 01/03/19 08:26 01/03/19 07:39 01/03/19 08:26 Intake & Output 01/02/19 01/03/19 01/04/19 06:59 06:59 06:59 Intake Total 240 1707 50 Output Total 200 1050 Balance 40 657 50 Weight 61.1 kg General appearance: PRESENT: no acute distress, well-developed, well-nourished Head exam: PRESENT: atraumatic, normocephalic Eye exam: PRESENT: conjunctiva pink, EOMI, PERRLA. ABSENT: scleral icterus Ear exam: PRESENT: normal external ear exam Mouth exam: PRESENT: moist, neck supple, tongue midline Neck exam: ABSENT: carotid bruit, JVD, lymphadenopathy, thyromegaly Respiratory exam: PRESENT: decreased breath sounds, prolonged expiratory phas, rhonchi, symmetrical, unlabored Cardiovascular exam: PRESENT: RRR. ABSENT: diastolic murmur, rubs, systolic mu rmur Pulses: PRESENT: normal dorsalis pedis pul Vascular exam: PRESENT: normal capillary refill GI/Abdominal exam: PRESENT: normal bowel sounds, soft. ABSENT: distended, guarding, mass, organolmegaly, rebound, tenderness Rectal exam: PRESENT: deferred Extremities exam: PRESENT: full ROM. ABSENT: calf tenderness, clubbing, pedal edema Musculoskeletal exam: PRESENT: ambulatory, full ROM, tenderness - low lumbar area Neurological exam: PRESENT: alert, awake, oriented to person, oriented to place, oriented to time, oriented to situation, CN II-XII grossly intact. ABSENT: motor sensory deficit Psychiatric exam: PRESENT: appropriate affect, normal mood. ABSENT: homicidal ideation, suicidal ideation Skin exam: PRESENT: dry, intact, warm. ABSENT: cyanosis, rash Results Laboratory Results: 01/03/19 04:48 01/03/19 04:48 01/03/19 01/03/19 04:48 04:48 WBC 9.3 RBC 3.01 L Hgb 9.0 L Hct 26.6 L MCV 88 MCH 29.9 MCHC 33.8 RDW 14.3 H Plt Count 340 Seg Neutrophils % 83.2 H Lymphocytes % 10.8 L Monocytes % 6.0 Eosinophils % 0.0 Basophils % 0.0 Absolute Neutrophils 7.7 Absolute Lymphocytes 1.0 Absolute Monocytes 0.6 Absolute Eosinophils 0.0 Absolute Basophils 0.0 Sodium 144.3 Potassium 5.9 H Chloride 104 Carbon Dioxide 34 H Anion Gap 6 BUN 33 H Creatinine 0.75 Est GFR ( Amer) > 60 Est GFR (Non-Af Amer) > 60 Glucose 84 Calcium 9.9 Magnesium 2.4 H 12/29/18 08:54 Blood Blood Culture - Final NO GROWTH IN 5 DAYS 12/29/18 07:25 Blood Blood Culture - Final NO GROWTH IN 5 DAYS 12/29/18 07:25 Troponin I < 0.012 Impressions: Chest X-Ray 12/29/18 07:18 IMPRESSION: No change. Assessment & Plan - Diagnosis (1) Acute respiratory failure with hypoxia and hypercapnia Is this a current diagnosis for this admission?: Yes Plan: Improving. Will decrease duoneb to q8h and q4h prn. She still occasionally saturates with activity down to the 80s on 3 L/min. is her pulmonolgist. We may need to consult him tomorrow if he is available. (2) COPD exacerbation Is this a current diagnosis for this admission?: Yes Plan: Secondary to acute bronchitis. We will continue azithromycin and ceftriaxone, taper IV solumedrol to oral prednisone in preparation for discharge in the next 48 hours (3) Moderate to severe pulmonary hypertension Is this a current diagnosis for this admission?: Yes Plan: Echocardiogram done on 05/2018, shows severe pulmonary hypertension. She is followed by pulmonology and cardiology (4) Paroxysmal atrial fibrillation Is this a current diagnosis for this admission?: Yes Plan: Presently sinus rhythm continue current medications. (5) Anemia Is this a current diagnosis for this admission?: Yes Plan: Hemoglobin is presently able. (6) Atrial fibrillation Qualifiers: Atrial fibrillation type: chronic Qualified Code(s): I48.2 - Chronic atrial fibrillation Is this a current diagnosis for this admission?: Yes Plan: Rate controlled on Eliquis (7) CHF (congestive heart failure) Qualifiers: Heart failure type: unspecified Heart failure chronicity: acute Qualified Code(s): I50.9 - Heart failure, unspecified Is this a current diagnosis for this admission?: Yes Plan: Presently appears euvolemic (8) Tobacco abuse Is this a current diagnosis for this admission?: Yes Plan: Counseled. She has no plans to quit. - Time Time Spent with patient: 25-34 minutes Total Critical Time (Minutes): 20 Smoking Cessation Education: 3 to 10 minutes Medications reviewed and adjusted accordingly: Yes Anticipated discharge: Home with Homehealth, Acute Rehab Within: within 48 hours - Inpatient Certification Based on my medical assessment, after consideration of the patient's comorbidities, presenting symptoms, or acuity I expect that the services needed warrant INPATIENT care.: Yes I certify that my determination is in accordance with my understanding of Medicare's requirements for reasonable and necessary INPATIENT services [42 CFR 412.3e].: Yes Medical Necessity: Failure to Improve With Outpatient Therapy, Need for Nebulizer Therapy and Monitoring of Response
[2019-01-03] MEDS: MIRTAZAPINE 15 MG TABLET PO SCH (21:01)
[2019-01-04] MEDS: IPRATROPIUM/ALBUTEROL 0.5-2.5 MG/3 ML AMPUL NEB SCH ×3 (00:43→15:40)
[2019-01-04 06:34] LABS: BLOOD UREA NITROGEN 29 mg/dL (7-20); CALCIUM 9.4 mg/dL (8.4-10.2); CARBON DIOXIDE 37 mmol/L (22-30); GLUCOSE 81 mg/dL (75-110); POTASSIUM 5.1 mmol/L (3.6-5.0)
[2019-01-04 06:40] LABS: CHLORIDE 103 mmol/L (98-107); SODIUM 142.6 mmol/L (137-145)
[2019-01-04 06:42] LABS: ANION GAP 3 (5-19)
[2019-01-04] MEDS: METHOCARBAMOL 500 MG TABLET PO PRN (08:10)
[2019-01-04] MEDS: HYDROCODONE/ACETAMINOPHEN 5-325 MG TABLET PO PRN (08:10)
[2019-01-04] MEDS: CEFTRIAXONE 1 GM/D5W RTU 1 GM/50 ML RTUPB IV SCH (09:09)
[2019-01-04] MEDS: AZITHROMYCIN 250 MG TABLET PO SCH (09:10)
[2019-01-04] MEDS: ASPIRIN 81 MG TABLET, CHEWABLE PO SCH (09:10)
[2019-01-04] MEDS: CITALOPRAM HYDROBROMIDE 20 MG TABLET PO SCH (09:10)
[2019-01-04] MEDS: APIXABAN 5 MG TABLET PO SCH ×2 (09:10→17:02)
[2019-01-04] MEDS: PREDNISONE 20 MG TABLET PO SCH ×2 (09:10→17:02)
[2019-01-04] MEDS: AMLODIPINE BESYLATE 2.5 MG TABLET PO SCH (09:10)
[2019-01-04] MEDS: BUSPIRONE HCL 10 MG TABLET PO SCH ×2 (09:11→21:10)
[2019-01-04] MEDS: FLUTICASONE/UMECLIDIN/VILANTER 100-62.5-25 MCG/DOSE IH SCH (09:11)
[2019-01-04] MEDS: GABAPENTIN 300 MG CAPSULE PO PRN (10:51)
[2019-01-04] MEDS ORDERED: HYDROCODONE/ACETAMINOPHEN 5-325 MG TABLET PO PRN (11:09)
[2019-01-04] MEDS ORDERED: (PENDING PHARMACY ID) (Guaifenesin [Mucinex] 1,200 MG) PO PRN (11:09)
[2019-01-04] MEDS ORDERED: HYDROXYZINE HCL 10 MG TABLET PO PRN (11:09)
[2019-01-04] MEDS ORDERED: GUAIFENESIN 600 MG TABLET.SA PO PRN (11:26)
[2019-01-04] MEDS: METOPROLOL TARTRATE 50 MG TABLET PO SCH ×2 (11:27→21:10)
[2019-01-04] MEDS: DULOXETINE HCL 30 MG CAPSULE.DR PO SCH (11:28)
--- NOTE | 2019-01-04 11:31 | PDOC PROGRESS REPORT ---
Subjective Progress Note for:: 01/04/19 Subjective:: 01/04/2019-no acute events in the last 24 hours. Patient is afebrile. Comfortably in the bed. The nurses notified me that patient to become extremely tachycardic with minimal activity heart rate is going up to 140s. Patient is in sinus tach no evidence of any atrial fibrillation. Started on metoprolol tartrate 50 mg p.o. twice daily and she was also restarted on amlodipine today and IV going to watch her another day to see how she is going to do and [facility]. Reason For Visit: ACUTE HYPOXIC RESP FAILURE,COPD EXACERBATION, Physical Exam Vital Signs: Temp Pulse Resp BP Pulse Ox 98.5 F 107 H 17 161/64 H 98 01/04/19 07:53 01/04/19 07:53 01/04/19 07:53 01/04/19 07:53 01/04/19 07:53 Intake & Output 01/03/19 01/04/19 01/05/19 06:59 06:59 06:59 Intake Total 1707 818 50 Output Total 1050 100 Balance 657 718 50 Weight 61.1 kg 45.3 kg General appearance: PRESENT: no acute distress Head exam: PRESENT: atraumatic Eye exam: PRESENT: PERRLA Mouth exam: PRESENT: dry mucosa Teeth exam: PRESENT: poor dentation Neck exam: ABSENT: carotid bruit, JVD, lymphadenopathy, thyromegaly Respiratory exam: PRESENT: decreased breath sounds Cardiovascular exam: PRESENT: tachycardia GI/Abdominal exam: PRESENT: normal bowel sounds, soft. ABSENT: distended, guarding, mass, organolmegaly, rebound, tenderness Extremities exam: PRESENT: full ROM. ABSENT: calf tenderness, clubbing, pedal edema Neurological exam: PRESENT: alert, awake, oriented to person, oriented to place, oriented to time, oriented to situation, CN II-XII grossly intact. ABSENT: motor sensory deficit Psychiatric exam: PRESENT: appropriate affect, normal mood. ABSENT: homicidal ideation, suicidal ideation Results Laboratory Results: 01/03/19 04:48 01/04/19 04:49 01/04/19 04:49 Sodium 142.6 Potassium 5.1 H Chloride 103 Carbon Dioxide 37 H Anion Gap 3 L BUN 29 H Creatinine 0.70 Est GFR ( Amer) > 60 Est GFR (Non-Af Amer) > 60 Glucose 81 Calcium 9.4 12/29/18 08:54 Blood Blood Culture - Final NO GROWTH IN 5 DAYS 12/29/18 07:25 Blood Blood Culture - Final NO GROWTH IN 5 DAYS 12/29/18 07:25 Troponin I < 0.012 Impressions: Chest X-Ray 12/29/18 07:18 IMPRESSION: No change. Assessment & Plan - Diagnosis (1) Acute and chronic respiratory failure Qualifiers: Respiratory failure complication: hypoxia and hypercapnia Qualified Code(s): J96.21 - Acute and chronic respiratory failure with hypoxia; J96.22 - Acute and chronic respiratory failure with hypercapnia Is this a current diagnosis for this admission?: Yes Plan: 01/04/2019Improving. Will decrease duoneb to q8h and q4h prn. She still occasionally saturates with activity down to the 80s on 3 L/min. is her pulmonolgist. We may need to consult him tomorrow if he is available. 01/04/2019-patient is admitted with acute on chronic respiratory failure most likely secondary to COPD exacerbation. Patient pulse ox today is 98% on [address] Mak is her coil placer to be going to put a consult for him today. Prednisone dose is decreased from 60 mg daily to 20 mg twice a day. Plan is to continue the present management. (2) COPD exacerbation Is this a current diagnosis for this admission?: Yes Plan: 01/04/2019-patient is admitted with COPD exacerbation most likely secondary to acute bronchitis. Patient is presently on azithromycin and Rocephin. Plan is to continue the present management. (3) Moderate to severe pulmonary hypertension Is this a current diagnosis for this admission?: Yes Plan: 01/04/2019-patient has moderate to severe pulmonary hypertension most likely secondary to COPD. (4) Paroxysmal atrial fibrillation Is this a current diagnosis for this admission?: Yes Plan: 01/04/2019-patient has history of paroxysmal atrial fibrillation on Eliquis plan is to continue the present management during the hospital stay. (5) Anemia Is this a current diagnosis for this admission?: Yes Plan: 01/04/2019-patient hemoglobin is 9.0. The previous one on 12/30/2018 it is 13.1. We are going to recheck the hemoglobin tomorrow to see if it is accurate or not. (6) CHF (congestive heart failure) Qualifiers: Heart failure type: unspecified Heart failure chronicity: acute Qualified Code(s): I50.9 - Heart failure, unspecified Is this a current diagnosis for this admission?: Yes Plan: 01/04/2019-patient has echocardiogram was done in 2018-left ventricular ejection fraction is normal. Unable to assess diastolic function because of the chronic atrial fibrillation. Patient most likely has chronic diastolic heart failure. Patient is euvolemic. - Time Time Spent with patient: 25-34 minutes Smoking Cessation Education: over 10 minutes Anticipated discharge: SNF
[2019-01-04] MEDS ORDERED: ALBUTEROL SULFATE HFA (90 MCG/PUFF) 200 PUFF/8.5 GM MDI IH SCH (12:00)
[2019-01-04 12:47] LABS: HEMATOCRIT 25.2 % (36.0-47.0); HEMOGLOBIN 8.3 g/dL (12.0-15.5); MEAN CORPUSCULAR HEMOGLOBIN 29.5 pg (27.0-33.4); MEAN CORPUSCULAR HGB CONC 32.9 g/dL (32.0-36.0); MEAN CORPUSCULAR VOLUME 90 fl (80-97); PLATELET COUNT 345 10^3/uL (150-450); RED BLOOD COUNT 2.81 10^6/uL (3.72-5.28); RED CELL DISTRIBUTION WIDTH 14.6 % (11.5-14.0); WHITE BLOOD COUNT 8.4 10^3/uL (4.0-10.5)
[2019-01-04 13:55] LABS: ABSOLUTE LYMPHOCYTES# (MANUAL) 1.1 10^3/uL (0.5-4.7); ABSOLUTE MONOCYTES # (MANUAL) 0.6 10^3/uL (0.1-1.4); ABSOLUTE NEUTROPHILS# (MANUAL) 6.7 10^3/uL (1.7-8.2); BAND NEUTROPHILS % (MANUAL) 3 % (3-5); BASOPHILS % (MANUAL) 0 % (0-2); EOSINOPHILS % (MANUAL) 0 % (0-6); LYMPHOCYTES % (MANUAL) 12 % (13-45); METAMYELOCYTES % (MANUAL) 1 % (0); MONOCYTES % (MANUAL) 7 % (3-13); SEGMENTED NEUTROPHILS % (MAN) 73 % (42-78); TOTAL CELLS COUNTED 100
[2019-01-04] MEDS ORDERED: GABAPENTIN 300 MG CAPSULE PO SCH (14:00)
[2019-01-04 14:20] LABS: PROMYELOCYTES % (MANUAL) 3 % (0); TOXIC GRANULATION 1+; TOXIC VACUOLATION PRESENT
[2019-01-04 14:21] LABS: BURR CELLS SLIGHT; OVALOCYTES SLIGHT; PLATELET COMMENT ADEQUATE; POIKILOCYTOSIS 1+; POLYCHROMASIA SLIGHT
[2019-01-04] MEDS: GABAPENTIN 300 MG CAPSULE PO SCH ×2 (14:48→21:09)
[2019-01-04] MEDS ORDERED: APIXABAN 5 MG TABLET PO SCH (18:00)
[2019-01-04] MEDS: MIRTAZAPINE 15 MG TABLET PO SCH (21:10)
[2019-01-05] MEDS: IPRATROPIUM/ALBUTEROL 0.5-2.5 MG/3 ML AMPUL NEB SCH ×4 (00:12→23:59)
[2019-01-05] MEDS: HYDROCODONE/ACETAMINOPHEN 5-325 MG TABLET PO PRN ×3 (03:55→21:21)
[2019-01-05] MEDS: GABAPENTIN 300 MG CAPSULE PO SCH ×3 (05:12→21:22)
[2019-01-05] MEDS: METHOCARBAMOL 500 MG TABLET PO PRN (05:12)
[2019-01-05 05:51] LABS: ALANINE AMINOTRANSFERASE 40 U/L (9-52); ALBUMIN 3.1 g/dL (3.5-5.0); ALKALINE PHOSPHATASE 51 U/L (38-126); ANION GAP 5 (5-19); ASPARTATE AMINO TRANSFERASE 25 U/L (14-36); BILIRUBIN,DIRECT 0.1 mg/dL (0.0-0.4); BILIRUBIN,TOTAL 0.1 mg/dL (0.2-1.3); BLOOD UREA NITROGEN 35 mg/dL (7-20); CALCIUM 9.1 mg/dL (8.4-10.2); CARBON DIOXIDE 34 mmol/L (22-30); CHLORIDE 104 mmol/L (98-107); GLUCOSE 81 mg/dL (75-110); POTASSIUM 4.9 mmol/L (3.6-5.0); SODIUM 142.9 mmol/L (137-145); TOTAL PROTEIN 5.3 g/dL (6.3-8.2)
[2019-01-05] MEDS ORDERED: NORMAL SALINE 250 ML IV PRN ×2 (09:45)
--- NOTE | 2019-01-05 09:56 | PDOC PROGRESS REPORT ---
Subjective Progress Note for:: 01/05/19 Subjective:: 01/04/2019-no acute events in the last 24 hours. Patient is afebrile. Comfortably in the bed. The nurses notified me that patient to become extremely tachycardic with minimal activity heart rate is going up to 140s. Patient is in sinus tach no evidence of any atrial fibrillation. Started on metoprolol tartrate 50 mg p.o. twice daily and she was also restarted on amlodipine today and IV going to watch her another day to see how she is going to do and she got a bed in the [facility] already. 01/05/2019-no acute events in the last 24 hours. Patient is afebrile. Patient was tachycardic with heart rate up to 140s yesterday started on metoprolol tartrate 50 mg p.o. twice a day on the heart rate this morning is well controlled around 64. Pulmonary consult was requested Dr. Griffin saw the patient yesterday requested for the CT chest today. She is hemoglobin dropped from 13 on admission to 8.3 today plan is to type and crossmatch and transfuse 1 unit of PRBC and to check post transfusion CBC and also labs tomorrow. Reason For Visit: ACUTE HYPOXIC RESP FAILURE,COPD EXACERBATION, Physical Exam Vital Signs: Temp Pulse Resp BP Pulse Ox 98.7 F 68 16 102/55 L 98 01/04/19 23:57 01/05/19 08:00 01/05/19 08:00 01/04/19 23:57 01/05/19 08:00 Intake & Output 01/04/19 01/05/19 01/06/19 06:59 06:59 06:59 Intake Total 818 1220 Output Total 100 750 Balance 718 470 Weight 45.3 kg 45.3 kg General appearance: PRESENT: no acute distress Head exam: PRESENT: atraumatic Eye exam: PRESENT: PERRLA Mouth exam: PRESENT: moist, tongue midline Neck exam: ABSENT: carotid bruit, JVD, lymphadenopathy, thyromegaly Respiratory exam: PRESENT: decreased breath sounds Cardiovascular exam: PRESENT: RRR. ABSENT: diastolic murmur, rubs, systolic murmur GI/Abdominal exam: PRESENT: normal bowel sounds, soft. ABSENT: distended, guarding, mass, organolmegaly, rebound, tenderness Extremities exam: PRESENT: full ROM. ABSENT: calf tenderness, clubbing, pedal edema Neurological exam: PRESENT: alert, awake, oriented to person, oriented to place, oriented to time, oriented to situation, CN II-XII grossly intact. ABSENT: motor sensory deficit Psychiatric exam: PRESENT: appropriate affect, normal mood. ABSENT: homicidal ideation, suicidal ideation Results Laboratory Results: 01/04/19 04:49 01/05/19 04:57 01/04/19 01/05/19 04:49 04:57 WBC 8.4 RBC 2.81 L Hgb 8.3 L Hct 25.2 L MCV 90 MCH 29.5 MCHC 32.9 RDW 14.6 H Plt Count 345 Seg Neutrophils % Not Reportable Lymphocytes % Not Reportable Monocytes % Not Reportable Eosinophils % Not Reportable Basophils % Not Reportable Absolute Neutrophils Not Reportable Absolute Lymphocytes Not Reportable Absolute Monocytes Not Reportable Absolute Eosinophils Not Reportable Absolute Basophils Not Reportable Sodium 142.9 Potassium 4.9 Chloride 104 Carbon Dioxide 34 H Anion Gap 5 BUN 35 H Creatinine 0.80 Est GFR ( Amer) > 60 Est GFR (Non-Af Amer) > 60 Glucose 81 Calcium 9.1 Magnesium 2.5 H Total Bilirubin 0.1 L AST 25 ALT 40 Alkaline Phosphatase 51 Total Protein 5.3 L Albumin 3.1 L 12/29/18 07:25 Troponin I < 0.012 Impressions: Chest X-Ray 12/29/18 07:18 IMPRESSION: No change. Assessment & Plan - Diagnosis (1) Acute and chronic respiratory failure Qualifiers: Respiratory failure complication: hypoxia and hypercapnia Qualified Code(s): J96.21 - Acute and chronic respiratory failure with hypoxia; J96.22 - Acute and chronic respiratory failure with hypercapnia Is this a current diagnosis for this admission?: Yes Plan: 01/04/2019Improving. Will decrease duoneb to q8h and q4h prn. She still occasionally saturates with activity down to the 80s on 3 L/min. is h er pulmonolgist. We may need to consult him tomorrow if he is available. 01/04/2019-patient is admitted with acute on chronic respiratory failure most likely secondary to COPD exacerbation. Patient pulse ox today is 98% on [address] Mak is her orthotic/prosthetic practitioner to be going to put a consult for him today. Prednisone dose is decreased from 60 mg daily to 20 mg twice a day. Plan is to continue the present management. 01/05/[id number]-grqi-old female admitted for acute on chronic respiratory failure most likely secondary to COPD exacerbation. Pulse ox today is 98% on [address] Griffin saw the patient yesterday. He requested for CT chest today . Plan is to continue the p.o. prednisone and nebulizer treatments during the hospital stay. Patient has a bed available in the [facility]. (2) COPD exacerbation Is this a current diagnosis for this admission?: Yes Plan: 01/04/2019-patient is admitted with COPD exacerbation most likely secondary to acute bronchitis. Patient is presently on azithromycin and Rocephin. Plan is to continue the present management. 01/05/2019-patient is admitted for COPD exacerbation most likely secondary to acute bronchitis. Patient is on azithromycin and Rocephin patient is afebrile. She completed 7 days course of antibiotic therapy and continue to discontinue the antibiotics today. (3) Moderate to severe pulmonary hypertension Is this a current diagnosis for this admission?: No Plan: 01/04/2019-patient has moderate to severe pulmonary hypertension most likely secondary to COPD. 01/05/2019-patient has history of moderate to severe pulmonary hypertension most likely secondary to chronic obstructive lung disease. (4) Paroxysmal atrial fibrillation Is this a current diagnosis for this admission?: No Plan: 01/04/2019-patient has history of paroxysmal atrial fibrillation on Eliquis plan is to continue the present management during the hospital stay. 01/05/2019-patient has history of paroxysmal atrial fibrillation on Eliquis plan is to continue the present management. Heart rate is today 64 rate is well controlled. (5) Anemia Is this a current diagnosis for this admission?: Yes Plan: 01/04/2019-patient hemoglobin is 9.0. The previous one on 12/30/2018 it is 13.1. We are going to recheck the hemoglobin tomorrow to see if it is accurate or not. 01/05/2019-patient hemoglobin today is 8.3 on admission it was 13.1. Plan is to type and crossmatch and transfuse 1 unit of PRBC. To request for stool guaiac x3 to check for any lower GI bleed. (6) CHF (congestive heart failure) Qualifiers: Heart failure type: unspecified Heart failure chronicity: acute Qualified Code(s): I50.9 - Heart failure, unspecified Is this a current diagnosis for this admission?: No Plan: 01/04/2019-patient has echocardiogram was done in 2018-left ventricular ejection fraction is normal. Unable to assess diastolic function because of the chronic atrial fibrillation. Patient most likely has chronic diastolic heart failure. Patient is euvolemic. 01/05/2019-patient has history of chronic congestive heart failure most likely diastolic in nature. The echocardiogram was done in 2018 shows normal left ventricular ejection fraction but unable to assess the diastolic function because of the chronic atrial fibrillation. Patient is euvolemic. - Time Time Spent with patient: 15-24 minutes Medications reviewed and adjusted accordingly: Yes Anticipated discharge: SN[facility]
[2019-01-05 10:24] LABS: ARTERIAL BLOOD BASE EXCESS 5.8 mmol/L; ARTERIAL BLOOD H2CO3 1.52 mmol/L (1.05-1.35); ARTERIAL BLOOD HCO3 31.2 mmol/L (20-24); ARTERIAL BLOOD O2 SATURATION 97.8 % (94-98); ARTERIAL BLOOD PCO2 50.6 mmHg (35-45); ARTERIAL BLOOD PH 7.41 (7.35-7.45); ARTERIAL BLOOD PO2 105.3 mmHg (80-100); ARTERIAL BLOOD TOTAL CO2 32.8 mmol/L (21-25)
[2019-01-05 10:26] LABS: ARTERIAL BLOOD FIO2 2L
[2019-01-05] MEDS: CETIRIZINE 10 MG TABLET PO SCH (10:30)
[2019-01-05] MEDS: CITALOPRAM HYDROBROMIDE 20 MG TABLET PO SCH (10:30)
[2019-01-05] MEDS: METOPROLOL TARTRATE 50 MG TABLET PO SCH ×2 (10:30→21:21)
[2019-01-05] MEDS: PREDNISONE 20 MG TABLET PO SCH ×2 (10:30→17:32)
[2019-01-05] MEDS: DULOXETINE HCL 30 MG CAPSULE.DR PO SCH (10:30)
[2019-01-05] MEDS: ASPIRIN 81 MG TABLET, CHEWABLE PO SCH (10:30)
[2019-01-05] MEDS: BUSPIRONE HCL 10 MG TABLET PO SCH ×2 (10:30→21:22)
[2019-01-05] MEDS: APIXABAN 5 MG TABLET PO SCH ×2 (10:30→17:32)
[2019-01-05] MEDS: AMLODIPINE BESYLATE 2.5 MG TABLET PO SCH (10:31)
[2019-01-05] MEDS: FLUTICASONE/UMECLIDIN/VILANTER 100-62.5-25 MCG/DOSE IH SCH (10:32)
--- NOTE | 2019-01-05 10:35 | RADIOLOGY REPORT (SQ) ---
EXAM DESCRIPTION: CT CHEST WITHOUT COMPLETED DATE/TIME: 01/05/2019 9:46 am REASON FOR STUDY: pulmonary nodule right upper lobe COMPARISON: CT chest 09/26/2009, 05/18/2018 Chest film 11/17/2018, 12/29/2018 TECHNIQUE: CT scan performed of the chest without intravenous contrast. Images reviewed with lung, soft tissue and bone windows. Reconstructed coronal and sagittal MPR images reviewed. All images st ored on PACS. All CT scanners at this facility use dose modulation, iterative reconstruction, and/or weight based d osing when appropriate to reduce radiation dose to as low as reasonably achievable (ALARA). [facility]: Dose Right [facility]: CareDose [facility]: Dose Right [facility]: Teradose 4D [facility]: [employer] RADIATION DOSE: CT Rad equipment meets quality standard of care and radiation dose reduction techniq ues were employed. CTDIvol: 2.8 mGy. DLP: 108 mGy-cm. mGy. LIMITATIONS: No technical limitations. FINDINGS: LUNGS AND PLEURA: There is right apical bandlike scarring with air bronchograms unchanged from 05/18/2018, best shown on axial image 20. Remainder of the lungs demonstrate end-stage appearance of obstructive lung disease with patchy conso lidation in the left posterior costophrenic sulcus, question aspiration pneumonia. No pleural effusions. No pneumothorax. No worrisome pulmonary nodules. HILAR AND MEDIASTINAL STRUCTURES: Large retrocardiac hiatal hernia containing the stomach fundus and body. This puts the patient at risk for aspiration. No hilar or mediastinal adenopathy HEART AND VASCULAR STRUCTURES: No aneurysm. No pericardial effusion. Heavily calcified coronary art eries. Proximal left subclavian artery stent UPPER ABDOMEN: Atrophy left kidney THYROID AND OTHER SOFT TISSUES: Bilateral axillary to femoral vascular grafts are present BONES: T6 and L1 kyphoplasties. Untreated lucía 25 to 50% compression of T5. Untreated minimal st able less than 25% upper endplate compression at T8. HARDWARE: No pacemaker OTHER: No other significant findings. IMPRESSION: Right apical bandlike scarring with air bronchograms unchanged from 05/18/2018. Patchy airspace disease in the left posterior costophrenic sulcus, question aspiration pneumonia give n large retrocardiac hiatal hernia TECHNICAL DOCUMENTATION: JOB ID: [id number] Quality ID # [id number]: Final reports with documentation of one or more dose reduction techniques (e.g., Au tomated exposure control, adjustment of the mA and/or kV according to patient size, use of iterative reconstruction technique) 2010 [employer]- All Rights Reserved Reading location - IP/workstation name: [email or web address]
--- NOTE | 2019-01-05 13:17 | CONSULTATION REPORT E ---
Consultation Report NAME: MJ SHELTON : 1950 AGE: 68Y DATE: 405 A TO: DARRYL WANG M.D. FROM: DANELLE NEGRO M.D. Requesting Physician HISTORY OF PRESENT ILLNESS: The patient is a 68-year-old female with past medical history of paroxysmal atrial fibrillation, PE x2 on Eliquis, COPD on 2 L of oxygen at home, reports fainting, hypertension, and a rectal mass. Consulted for further evaluation and management of right upper lobe nodule. Came in with increasing shortness of breath, wheezing, and coughing. The patient has been progressively short of breath over the last 2 days. Purulent sputum production and wheezing. The patient was started on IV steroids, treated for pneumonia with ceftriaxone and azithromycin. Currently appears to be feeling a lot better. Denies any fever, chills, increasing cough, or purulent sputum production. No hemoptysis. No chest pain. PAST MEDICAL HISTORY: Same as above. 1. Atrial fibrillation. 2. Congestive heart failure. 3. Hyperlipidemia. 4. Hypertension. 5. COPD. 6. Depression. 7. Anemia. PAST SURGICAL HISTORY: Cardiac cath with stent x1; surgery. SOCIAL HISTORY: Current every day smoker. Denies any alcohol use or illicit drug use. FAMILY HISTORY: Reviewed. Pertinent family history reviewed, but no premature CAD. MEDICATIONS: At home include: 1. Gabapentin. 2. Hydrocodone. 3. Norvasc. 4. Trelegy inhaler. 5. Eliquis. 6. Mucinex. 7. Albuterol inhaler. 8. Albuterol nebulizer. 9. Pulmicort 0.5 mg inhaler twice a day. 10. BuSpar 10 mg tablet p.o. b.i.d. 11. Calcium carbonate. 12. Zyrtec. 13. Vitamin D3. 14. Citalopram. 15. Cymbalta. 16. Atarax. 17. Mirtazapine. 18. Omeprazole. 19. . ALLERGIES: No known drug allergies. REVIEW OF SYSTEMS: CONSTITUTIONAL: No fever or chills. EYES: Minimal pallor. EARS, NOSE, THROAT: No ear drainage. NECK: Soft, supple. LUNGS: Respiration complete, but increased shortness of breath prior to this admission for about more than 1 week with increased purulent sputum production. No hemoptysis. Condition appeared to be better. CARDIAC: History of atrial fibrillation and heart attack with stent placement. GASTROINTESTINAL: No nausea, vomiting, diarrhea. GENITOURINARY: No dysuria or hematuria. EXTREMITIES: No joint swelling or cellulitis. LABORATORY: CBC done today showed white count of 8.4, hemoglobin is 8.3, hematocrit is 35.2, and platelet count is 345, and the segs are 32%. Neutrophils are normal. Blood gas about 7 days ago showed pH of 7.28, PCO2 is 55.6, PO2 of 128. Chemistry done this morning showed sodium of 142, potassium is 5.1, chloride is 103, CO2 is 37, BUN is 39, creatinine is 0.7, glucose is 81, and phosphorus 9.4. The patient had an abdominal CT scan done on December 25, 2018, showing an infiltrate involving the left lower lobe suspicious for pneumonia. Her last chest CT scan was done last year, May 18, 2018, showing an apical lung nodule, spiculated, of the right upper lobe, new compared to the previous CAT scan. ASSESSMENT: 1. COPD IN ACUTE EXACERBATION. Currently appears to be improving and stable, not in acute bronchospasm. 2. PNEUMONIA LEFT LOWER LOBE MOST LIKELY. Already on IV Rocephin and IV ceftriaxone. White count is normal. 3. PULMONARY NODULE, SPICULATED, ON THE APICAL SEGMENT RIGHT SIDE. Most likely scarring, but malignancy could not be completely excluded. PLAN AND RECOMMENDATIONS: 1. Will repeat the ABG tomorrow morning. 2. Will order for a CT scan of the chest without IV contrast. 3. Continue Trelegy inhaler. 4. Continue albuterol inhaler as needed and use nebulized albuterol every 6 hours as needed. DICTATING PHYSICIAN: DARRYL WANG MD,NEERAJ,MPH [id number] PHY#: [id number] ID: [id number] JOB#: [id number] ACCT: [id number] cc:DARRYL WANG M.D. > MTDD
[2019-01-05 14:46] LABS: PATH REVIEW PATHOLOGIST REVIEWED
[2019-01-05] MEDS: MORPHINE SULFATE 10 MG/ML INJ IV PRN (15:14)
[2019-01-05 19:02] LABS: HEMATOCRIT 29.9 % (36.0-47.0); HEMOGLOBIN 10.1 g/dL (12.0-15.5); MEAN CORPUSCULAR HEMOGLOBIN 29.4 pg (27.0-33.4); MEAN CORPUSCULAR HGB CONC 33.6 g/dL (32.0-36.0); MEAN CORPUSCULAR VOLUME 87 fl (80-97); PLATELET COUNT 356 10^3/uL (150-450); RED BLOOD COUNT 3.42 10^6/uL (3.72-5.28); RED CELL DISTRIBUTION WIDTH 13.9 % (11.5-14.0); WHITE BLOOD COUNT 12.8 10^3/uL (4.0-10.5)
[2019-01-05 19:20] LABS: ABSOLUTE MONOCYTES # (MANUAL) 0.6 10^3/uL (0.1-1.4); ABSOLUTE NEUTROPHILS# (MANUAL) 11.1 10^3/uL (1.7-8.2); BAND NEUTROPHILS % (MANUAL) 2 % (3-5); BASOPHILS % (MANUAL) 0 % (0-2); EOSINOPHILS % (MANUAL) 0 % (0-6); LYMPHOCYTES % (MANUAL) 7 % (13-45); MONOCYTES % (MANUAL) 5 % (3-13); PROMYELOCYTES % (MANUAL) 2 % (0); SEGMENTED NEUTROPHILS % (MAN) 83 % (42-78); TOTAL CELLS COUNTED 100
[2019-01-05 19:22] LABS: TOXIC GRANULATION SLIGHT
[2019-01-05 19:23] LABS: OVALOCYTES SLIGHT; PLATELET COMMENT ADEQUATE
[2019-01-05] MEDS: MIRTAZAPINE 15 MG TABLET PO SCH (21:21)
[2019-01-06] MEDS: GABAPENTIN 300 MG CAPSULE PO SCH ×3 (05:20→23:10)
[2019-01-06] MEDS: HYDROCODONE/ACETAMINOPHEN 5-325 MG TABLET PO PRN ×2 (05:20→14:21)
[2019-01-06 05:49] LABS: HEMATOCRIT 31.9 % (36.0-47.0); HEMOGLOBIN 10.6 g/dL (12.0-15.5); MEAN CORPUSCULAR HEMOGLOBIN 28.9 pg (27.0-33.4); MEAN CORPUSCULAR HGB CONC 33.1 g/dL (32.0-36.0); MEAN CORPUSCULAR VOLUME 87 fl (80-97); PLATELET COUNT 403 10^3/uL (150-450); RED BLOOD COUNT 3.65 10^6/uL (3.72-5.28); WHITE BLOOD COUNT 11.2 10^3/uL (4.0-10.5)
[2019-01-06 06:19] LABS: ALANINE AMINOTRANSFERASE 26 U/L (9-52); ALKALINE PHOSPHATASE 51 U/L (38-126); ANION GAP 5 (5-19); ASPARTATE AMINO TRANSFERASE 22 U/L (14-36); BILIRUBIN,DIRECT 0.3 mg/dL (0.0-0.4); BILIRUBIN,TOTAL 0.3 mg/dL (0.2-1.3); BLOOD UREA NITROGEN 28 mg/dL (7-20); CALCIUM 9.4 mg/dL (8.4-10.2); CARBON DIOXIDE 32 mmol/L (22-30); CHLORIDE 104 mmol/L (98-107); GLUCOSE 87 mg/dL (75-110); POTASSIUM 5.8 mmol/L (3.6-5.0); SODIUM 140.6 mmol/L (137-145); TOTAL PROTEIN 5.2 g/dL (6.3-8.2)
[2019-01-06 07:11] LABS: ABSOLUTE LYMPHOCYTES# (MANUAL) 0.7 10^3/uL (0.5-4.7); ABSOLUTE MONOCYTES # (MANUAL) 0.1 10^3/uL (0.1-1.4); ABSOLUTE NEUTROPHILS# (MANUAL) 10.4 10^3/uL (1.7-8.2); BASOPHILS % (MANUAL) 0 % (0-2); EOSINOPHILS % (MANUAL) 0 % (0-6); LYMPHOCYTES % (MANUAL) 6 % (13-45); MONOCYTES % (MANUAL) 1 % (3-13); SEGMENTED NEUTROPHILS % (MAN) 93 % (42-78); TOTAL CELLS COUNTED 100
[2019-01-06 07:14] LABS: ANISOCYTOSIS SLIGHT; OVALOCYTES SLIGHT; PLATELET CLUMPS PRESENT; PLATELET COMMENT ADEQUATE; POIKILOCYTOSIS SLIGHT; POLYCHROMASIA SLIGHT; TOXIC GRANULATION 1+; TOXIC VACUOLATION PRESENT
[2019-01-06] MEDS: IPRATROPIUM/ALBUTEROL 0.5-2.5 MG/3 ML AMPUL NEB SCH ×3 (08:08→23:47)
--- NOTE | 2019-01-06 10:53 | PDOC PROGRESS REPORT ---
Subjective Progress Note for:: 01/06/19 Subjective:: 01/04/2019-no acute events in the last 24 hours. Patient is afebrile. Comfortably in the bed. The nurses notified me that patient to become extremely tachycardic with minimal activity heart rate is going up to 140s. Patient is in sinus tach no evidence of any atrial fibrillation. Started on metoprolol tartrate 50 mg p.o. twice daily and she was also restarted on amlodipine today and IV going to watch her another day to see how she is going to do and she got a bed in the care home already. 01/05/2019-no acute events in the last 24 hours. Patient is afebrile. Patient was tachycardic with heart rate up to 140s yesterday started on metoprolol tartrate 50 mg p.o. twice a day on the heart rate this morning is well controlled around 64. Pulmonary consult was requested Dr. Griffin saw the patient yesterday requested for the CT chest today. She is hemoglobin dropped from 13 on admission to 8.3 today plan is to type and crossmatch and transfuse 1 unit of PRBC and to check post transfusion CBC and also labs tomorrow. 01/06/2019-no acute events in the last 24 hours. Patient is afebrile. Heart rate is well controlled 65 today. Gaby saw the patient he recommended trilogy inhaler and albuterol inhalers. Pulse ox is 100% on 2 L. ABG was done this morning shows pH of 7.41 PCO2 50 PO2 105 bicarb is 31.2. Plan is to continue the present management. Reason For Visit: ACUTE HYPOXIC RESP FAILURE,COPD EXACERBATION, Physical Exam Vital Signs: Temp Pulse Resp BP Pulse Ox 98.0 F 65 17 114/46 L 100 01/06/19 08:36 01/06/19 08:36 01/06/19 08:36 01/06/19 08:36 01/06/19 08:36 Intake & Output 01/05/19 01/06/19 01/07/19 06:59 06:59 06:59 Intake Total 1220 1697 Output Total 750 1125 Balance 470 572 Weight 45.3 kg 45.3 kg General appearance: PRESENT: mild distress, thin Head exam: PRESENT: atraumatic Eye exam: PRESENT: PERRLA Mouth exam: PRESENT: moist, tongue midline Neck exam: ABSENT: carotid bruit, JVD, lymphadenopathy, thyromegaly Respiratory exam: PRESENT: decreased breath sounds Cardiovascular exam: PRESENT: irregular rhythm, RRR. ABSENT: diastolic murmur, rubs, systolic murmur GI/Abdominal exam: PRESENT: normal bowel sounds, soft. ABSENT: distended, guarding, mass, organolmegaly, rebound, tenderness Extremities exam: PRESENT: full ROM. ABSENT: calf tenderness, clubbing, pedal edema Neurological exam: PRESENT: alert, awake, oriented to person, oriented to place, oriented to time, oriented to situation, CN II-XII grossly intact. ABSENT: motor sensory deficit Psychiatric exam: PRESENT: appropriate affect, normal mood. ABSENT: homicidal ideation, suicidal ideation Results Laboratory Results: 01/06/19 04:41 01/06/19 04:41 01/05/19 01/05/19 01/06/19 12:40 18:50 04:41 WBC 12.8 H 11.2 H RBC 3.42 L 3.65 L Hgb 10.1 L 10.6 L Hct 29.9 L 31.9 L MCV 87 87 MCH 29.4 28.9 MCHC 33.6 33.1 RDW 13.9 14.0 Plt Count 356 403 Seg Neutrophils % Not Reportable Not Reportable Lymphocytes % Not Reportable Not Reportable Monocytes % Not Reportable Not Reportable Eosinophils % Not Reportable Not Reportable Basophils % Not Reportable Not Reportable Absolute Neutrophils Not Reportable Not Reportable Absolute Lymphocytes Not Reportable Not Reportable Absolute Monocytes Not Reportable Not Reportable Absolute Eosinophils Not Reportable Not Reportable Absolute Basophils Not Reportable Not Reportable Sodium Potassium Chloride Carbon Dioxide Anion Gap BUN Creatinine Est GFR ( Amer) Est GFR (Non-Af Amer) Glucose Calcium Magnesium Total Bilirubin AST ALT Alkaline Phosphatase Total Protein Albumin Blood Type O POSITIVE Antibody Screen NEGATIVE 01/06/19 04:41 WBC RBC Hgb Hct MCV MCH MCHC RDW Plt Count Seg Neutrophils % Lymphocytes % Monocytes % Eosinophils % Basophils % Absolute Neutrophils Absolute Lymphocytes Absolute Monocytes Absolute Eosinophils Absolute Basophils Sodium 140.6 Potassium 5.8 H Chloride 104 Carbon Dioxide 32 H Anion Gap 5 BUN 28 H Creatinine 0.73 Est GFR ( Amer) > 60 Est GFR (Non-Af Amer) > 60 Glucose 87 Calcium 9.4 Magnesium 2.4 H Total Bilirubin 0.3 AST 22 ALT 26 Alkaline Phosphatase 51 Total Protein 5.2 L Albumin 3.0 L Blood Type Antibody Screen 12/29/18 07:25 Troponin I < 0.012 Impressions: Chest X-Ray 12/29/18 07:18 IMPRESSION: No change. Chest CT 01/04/19 19:17 IMPRESSION: Right apical bandlike scarring with air bronchograms unchanged from 05/18/2018. Patchy airspace disease in the left posterior costophrenic sulcus, question aspiration pneumonia given large retrocardiac hiatal hernia Assessment & Plan - Diagnosis (1) Acute and chronic respiratory failure Qualifiers: Respiratory failure complication: hypoxia and hypercapnia Qualified Code(s): J96.21 - Acute and chronic respiratory failure with hypoxia; J96.22 - Acute and chronic respiratory failure with hypercapnia Is this a current diagnosis for this admission?: Yes Plan: 01/04/2019Improving. Will decrease duoneb to q8h and q4h prn. She still occasionally saturates with activity down to the 80s on 3 L/min. is her pulmonolgist. We may need to consult him tomorrow if he is available. 01/04/2019-patient is admitted with acute on chronic respiratory failure most likely secondary to COPD exacerbation. Patient pulse ox today is 98% on [address] Mak is her power manager to be going to put a consult for him today. Prednisone dose is decreased from 60 mg daily to 20 mg twice a day. Plan is to continue the present management. 01/05/[id number]-ywgw-old female admitted for acute on chronic respiratory failure most likely secondary to COPD exacerbation. Pulse ox today is 98% on [address] Griffin saw the patient yesterday. He requested for CT chest today . Plan is to continue the p.o. prednisone and nebulizer treatments during the hospital stay. Patient [facility] CT scan done yesterday shows patchy airspace disease. (2) COPD exacerbation Is this a current diagnosis for this admission?: Yes Plan: 01/04/2019-patient is admitted with COPD exacerbation most likely secondary to acute bronchitis. Patient is presently on azithromycin and Rocephin. Plan is to continue the present management. 01/05/2019-patient is admitted for COPD exacerbation most likely secondary to acute bronchitis. Patient is on azithromycin and Rocephin patient is afebrile. She completed 7 days course of antibiotic therapy and continue to discontinue the antibiotics today. 01/06/2019 patient was admitted with COPD exacerbation. Patient is off the antibiotic therapy. Pulse ox is 100% on 2 L. Patient is presently on prednisone 20 mg p.o. twice a day and DuoNeb nebulizations every 8 hours and every 4 hours as needed. On examination chest bilateral entry was decreased no wheezing no crepitations. Chest CT shows COPD and patchy airspace disease. (3) Moderate to severe pulmonary hypertension Is this a current diagnosis for this admission?: No Plan: 01/04/2019-patient has moderate to severe pulmonary hypertension most likely secondary to COPD. 01/05/2019-patient has history of moderate to severe pulmonary hypertension most likely secondary to chronic obstructive lung disease. 01/06/2019-patient was admitted with severe pulmonary hypertension most likely secondary to chronic COPD. (4) Paroxysmal atrial fibrillation Is this a current diagnosis for this admission?: No Plan: 01/04/2019-patient has history of paroxysmal atrial fibrillation on Eliquis plan is to continue the present management during the hospital stay. 01/05/2019-patient has history of paroxysmal atrial fibrillation on Eliquis plan is to continue the present management. Heart rate is today 64 rate is well controlled. 01/06/2019-patient is on Eliquis for paroxysmal atrial fibrillation rate controlled now with heart rate of 65. (5) Anemia Is this a current diagnosis for this admission?: Yes Plan: 01/04/2019-patient hemoglobin is 9.0. The previous one on 12/30/2018 it is 13.1. We are going to recheck the hemoglobin tomorrow to see if it is accurate or not. 01/05/2019-patient hemoglobin today is 8.3 on admission it was 13.1. Plan is to type and crossmatch and transfuse 1 unit of PRBC. To request for stool guaiac x3 to check for any lower GI bleed. 01/06/2019-patient is hemoglobin is 10.6. She received 1 unit of PRBC yesterday because hemoglobin 8.3. Unable to check stool for occult blood because patient has constipation and no bowel movements for the last 5 days. Anemia that is acute blood loss anemia most likely secondary to lower GI bleed. (6) CHF (congestive heart failure) Qualifiers: Heart failure type: unspecified Heart failure chronicity: acute Qualified Code(s): I50.9 - Heart failure, unspecified Is this a current diagnosis for this admission?: No Plan: 01/04/2019-patient has echocardiogram was done in 2018-left ventricular ejection fraction is normal. Unable to assess diastolic function because of the chronic atrial fibrillation. Patient most likely has chronic diastolic heart failure. Patient is euvolemic. 01/05/2019-patient has history of chronic congestive heart failure most likely diastolic in nature. The echocardiogram was done in 2018 shows normal left ventricular ejection fraction but unable to assess the diastolic function because of the chronic atrial fibrillation. Patient is euvolemic. 01/06/2019-patient has history of chronic diastolic congestive heart failure. latest echocardiogram shows normal left ventricular systolic function. (7) Hyperkalemia Is this a current diagnosis for this admission?: Yes Plan: 01/06/2019-patient potassium level is 5.8 today order for alk phos of 25. 6 g daily and started on Kayexalate 30 g p.o. twice a day. Plan is to do the EKG today and recheck the labs tomorrow. Also to recheck potassium level this evening. - Time Time Spent with patient: 15-24 minutes Smoking Cessation Education: over 10 minutes Medications reviewed and adjusted accordingly: Yes Anticipated discharge: Home
[2019-01-06] MEDS: METOPROLOL TARTRATE 50 MG TABLET PO SCH ×2 (11:41→23:10)
[2019-01-06] MEDS: CETIRIZINE 10 MG TABLET PO SCH (11:41)
[2019-01-06] MEDS: ASPIRIN 81 MG TABLET, CHEWABLE PO SCH (11:41)
[2019-01-06] MEDS: BUSPIRONE HCL 10 MG TABLET PO SCH ×2 (11:41→23:10)
[2019-01-06] MEDS: CITALOPRAM HYDROBROMIDE 20 MG TABLET PO SCH (11:41)
[2019-01-06] MEDS: DULOXETINE HCL 30 MG CAPSULE.DR PO SCH (11:41)
[2019-01-06] MEDS: PREDNISONE 20 MG TABLET PO SCH ×2 (11:42→17:34)
[2019-01-06] MEDS: APIXABAN 5 MG TABLET PO SCH ×2 (11:42→17:34)
[2019-01-06] MEDS: FLUTICASONE/UMECLIDIN/VILANTER 100-62.5-25 MCG/DOSE IH SCH (11:45)
[2019-01-06] MEDS: MORPHINE SULFATE 10 MG/ML INJ IV PRN (11:46)
[2019-01-06] MEDS: AMLODIPINE BESYLATE 2.5 MG TABLET PO SCH (11:48)
[2019-01-06] MEDS ORDERED: PATIROMER 8.4 GM SUSP PACKET PO SCH (17:00)
--- NOTE | 2019-01-06 19:12 | EKG REPORT ---
SEVERITY:- OTHERWISE NORMAL ECG - SINUS RHYTHM ATRIAL PREMATURE COMPLEX BORDERLINE RIGHT AXIS DEVIATION : Confirmed by: Maura Chen MD 06-Jan-2019 19:12:00
[2019-01-06] MEDS: MIRTAZAPINE 15 MG TABLET PO SCH (23:10)
[2019-01-06] MEDS: SODIUM POLYSTYRENE SULFONATE 15 GM/60 ML PO SCH (23:11)
[2019-01-07 05:26] LABS: HEMATOCRIT 30.3 % (36.0-47.0); HEMOGLOBIN 10.2 g/dL (12.0-15.5); MEAN CORPUSCULAR HEMOGLOBIN 29.6 pg (27.0-33.4); MEAN CORPUSCULAR HGB CONC 33.8 g/dL (32.0-36.0); MEAN CORPUSCULAR VOLUME 88 fl (80-97); PLATELET COUNT 351 10^3/uL (150-450); RED BLOOD COUNT 3.46 10^6/uL (3.72-5.28); RED CELL DISTRIBUTION WIDTH 14.1 % (11.5-14.0); WHITE BLOOD COUNT 10.9 10^3/uL (4.0-10.5)
[2019-01-07] MEDS: GABAPENTIN 300 MG CAPSULE PO SCH ×2 (05:34→13:52)
[2019-01-07 05:45] LABS: ALANINE AMINOTRANSFERASE 31 U/L (9-52); ALBUMIN 3.1 g/dL (3.5-5.0); ALKALINE PHOSPHATASE 55 U/L (38-126); ANION GAP 5 (5-19); ASPARTATE AMINO TRANSFERASE 24 U/L (14-36); BILIRUBIN,DIRECT 0.2 mg/dL (0.0-0.4); BILIRUBIN,TOTAL 0.2 mg/dL (0.2-1.3); BLOOD UREA NITROGEN 25 mg/dL (7-20); CALCIUM 9.5 mg/dL (8.4-10.2); CARBON DIOXIDE 34 mmol/L (22-30); CHLORIDE 102 mmol/L (98-107); GLUCOSE 103 mg/dL (75-110); POTASSIUM 5.2 mmol/L (3.6-5.0); SODIUM 140.7 mmol/L (137-145); TOTAL PROTEIN 5.2 g/dL (6.3-8.2)
[2019-01-07] MEDS: HYDROCODONE/ACETAMINOPHEN 5-325 MG TABLET PO PRN ×2 (05:48→13:53)
[2019-01-07 06:03] LABS: ABSOLUTE LYMPHOCYTES# (MANUAL) 0.7 10^3/uL (0.5-4.7); ABSOLUTE MONOCYTES # (MANUAL) 0.3 10^3/uL (0.1-1.4); ABSOLUTE NEUTROPHILS# (MANUAL) 9.9 10^3/uL (1.7-8.2); BASOPHILS % (MANUAL) 0 % (0-2); EOSINOPHILS % (MANUAL) 0 % (0-6); LYMPHOCYTES % (MANUAL) 6 % (13-45); MONOCYTES % (MANUAL) 3 % (3-13); SEGMENTED NEUTROPHILS % (MAN) 91 % (42-78); TOTAL CELLS COUNTED 100
[2019-01-07 06:04] LABS: PLATELET COMMENT ADEQUATE; RBC MORPHOLOGY COMMENT NORMO-CYTIC/CHROMIC
[2019-01-07] MEDS: IPRATROPIUM/ALBUTEROL 0.5-2.5 MG/3 ML AMPUL NEB SCH (08:01)
[2019-01-07] MEDS ORDERED: PREDNISONE 10 MG TABLET PO SCH (10:00)
[2019-01-07] MEDS ORDERED: PREDNISONE 20 MG TABLET PO SCH (10:00)
[2019-01-07] MEDS: AMLODIPINE BESYLATE 2.5 MG TABLET PO SCH (11:56)
[2019-01-07] MEDS: CETIRIZINE 10 MG TABLET PO SCH (11:57)
[2019-01-07] MEDS: BUSPIRONE HCL 10 MG TABLET PO SCH (11:57)
[2019-01-07] MEDS: APIXABAN 5 MG TABLET PO SCH (11:57)
[2019-01-07] MEDS: METOPROLOL TARTRATE 50 MG TABLET PO SCH (11:57)
[2019-01-07] MEDS: SODIUM POLYSTYRENE SULFONATE 15 GM/60 ML PO SCH (11:58)
[2019-01-07] MEDS: ASPIRIN 81 MG TABLET, CHEWABLE PO SCH (11:58)
[2019-01-07] MEDS: FLUTICASONE/UMECLIDIN/VILANTER 100-62.5-25 MCG/DOSE IH SCH (12:01)
[2019-01-07] MEDS: DULOXETINE HCL 30 MG CAPSULE.DR PO SCH (12:08)
[2019-01-07] MEDS: CITALOPRAM HYDROBROMIDE 20 MG TABLET PO SCH (12:11)
[2019-01-07] MEDS: MORPHINE SULFATE 10 MG/ML INJ IV PRN (12:11)
[2019-01-07] MEDS ORDERED: BISACODYL 5 MG TABEC PO ONE (12:30)
--- NOTE | 2019-01-07 12:43 | PROGRESS NOTE E ---
Progress Note NAME: MJ SHELTON : 1950 AGE: 68Y DATE: 01/05/2019 ROOM: 405 SUBJECTIVE: The patient is a 68-year-old female who came in with severe COPD exacerbation and pulmonary nodule. Currently feeling better. Denies any fever or chills, increasing cough, purulent sputum production, or hemoptysis. Had a chest CT scan done yesterday. No nausea, vomiting, diarrhea. OBJECTIVE: GENERAL: The patient is awake, alert, coherent, oriented x3. VITAL SIGNS: Temperature 98.5, with a T-max of 98.8. Blood pressure is 98/69. Heart rate is 64. Respiratory rate is 18. Saturation is *------*% on 2 L nasal cannula. EYES: No jaundice or pallor. EARS, NOSE, AND THROAT: No ear drainage. No nasal discharge. CHEST AND LUNGS: No wheezing. No rhonchi. No coarse crackles. CARDIOVASCULAR: S1, S2 distinct. Normal rate, regular rhythm. ABDOMEN: Flabby. Positive bowel sounds. Soft, nondistended, nontender. EXTREMITIES: No joint swelling. No cellulitis. LABORATORIES: CBC done today showed a white count of 12.8, hemoglobin is 10.1, hematocrit is 39.9, platelet count is 256. ABG done today shows pH of 7.41, PCO2 is 50.6, PO2 is 105, and the ABG saturation is 97.8 on 2 L nasal cannula. Chemistry done today showed sodium is 142.9, potassium is 4.9, chloride is 104, carbon dioxide 34, BUN is 35, creatinine 0.8, glucose 81, and calcium is 9.1, magnesium is 2.5. Chest CT scan done today showed a spiculated right upper lobe nodule, appeared to be stable since January 04, 2019, up to May 18, 2018, but appeared to be new compared to the CAT scan done on September 26, 2009. ASSESSMENT: 1. PULMONARY NODULE RIGHT UPPER LOBE, SPICULATED, APPEARED TO BE STABLE; MOST LIKELY BENIGN OR SCARRING. Underlying malignancy could not be excluded at this time. Stable from May 2018 to January 2019. 2. SEVERE COPD/EMPHYSEMA. Currently stable and not in acute exacerbation. 3. PNEUMONIA LEFT LOWER LOBE POSSIBLE. PLAN: 1. Recommend continuing the Trelegy inhaler 1 puff once daily. 2. Taper IV steroids to oral prednisone. 3. Recommend continue antibiotics for another 7-10 days. 4. Recommend pulmonary clinic followup in 4 weeks after hospital discharge. Will sign off tonight. If you have any questions, please feel free to call me. DICTATING PHYSICIAN: DARRYL WANG MD,NEERAJ,MPH [id number] PHY#: [id number] 2007 ID: [id number] JOB#: [id number] ACCT: [id number] cc: > MTDD
--- NOTE | 2019-01-07 13:37 | PDOC TRANSFER SUMMARY ---
General - Admit/Disc Date/PCP Admission Date/Primary Care Provider: 12/29/18 08:43 MASOOD DIANE PA-C Discharge Date: 01/07/19 - Discharge Diagnosis (1) Acute and chronic respiratory failure Is this a current diagnosis for this admission?: Yes Summary: 01/04/2019Improving. Will decrease duoneb to q8h and q4h prn. She still occasionally saturates with activity down to the 80s on 3 L/min. is her pulmonolgist. We may need to consult him tomorrow if he is available. 01/04/2019-patient is admitted with acute on chronic respiratory failure most likely secondary to COPD exacerbation. Patient pulse ox today is 98% on [address] Mak is her associate project manager to be going to put a consult for him today. Prednisone dose is decreased from 60 mg daily to 20 mg twice a day. Plan is to continue the present management. 01/05/[id number]-lqgt-old female admitted for acute on chronic respiratory failure most likely secondary to COPD exacerbation. Pulse ox today is 98% on [address] Griffin saw the patient yesterday. He requested for CT chest today . Plan is to continue the p.o. prednisone and nebulizer treatments during the hospital stay. Patient has a bed available in the [facility] group home. CT scan done yesterday shows patchy airspace disease. 01/07/2019-patient was admitted for acute on chronic respiratory failure most likely secondary to COPD exacerbation pulmonary consult was done she was started on trelogy inhaler and albuterol inhalation. Pulse ox this morning 97% on 2 L. She is on 2 L oxygen at home acute on chronic respiratory failure is resolved she is going to [facility] today. (2) COPD exacerbation Is this a current diagnosis for this admission?: Yes Summary: 01/04/2019-patient is admitted with COPD exacerbation most likely secondary to acute bronchitis. Patient is presently on azithromycin and Rocephin. Plan is to continue the present management. 01/05/2019-patient is admitted for COPD exacerbation most likely secondary to acute bronchitis. Patient is on azithromycin and Rocephin patient is afebrile. She completed 7 days course of antibiotic therapy and continue to discontinue the antibiotics today. 01/06/2019 patient was admitted with COPD exacerbation. Patient is off the antibiotic therapy. Pulse ox is 100% on 2 L. Patient is presently on prednisone 20 mg p.o. twice a day and DuoNeb nebulizations every 8 hours and every 4 hours as needed. On examination chest bilateral entry was decreased no wheezing no crepitations. Chest CT shows COPD and patchy airspace disease. 01/07/2019-patient was admitted with COPD exacerbation. Most likely secondary to underlying bronchitis. Patient is off the antibiotics now. CT chest indicating the possibility of aspiration pneumonia. Most likely gram-negative bacteria causing aspiration pneumonia. Patient is afebrile for the last few days cultures are negative patient can go to the group home without antibiotics. (3) Moderate to severe pulmonary hypertension Is this a current diagnosis for this admission?: No Summary: 01/04/2019-patient has moderate to severe pulmonary hypertension most likely secondary to COPD. 01/05/2019-patient has history of moderate to severe pulmonary hypertension most likely secondary to chronic obstructive lung disease. 01/06/2019-patient was admitted with severe pulmonary hypertension most likely secondary to chronic COPD. 01/07/2019-patient was admitted with severe pulmonary hypertension most likely s econdary to chronic COPD. (4) Paroxysmal atrial fibrillation Is this a current diagnosis for this admission?: No Summary: 01/04/2019-patient has history of paroxysmal atrial fibrillation on Eliquis plan is to continue the present management during the hospital stay. 01/05/2019-patient has history of paroxysmal atrial fibrillation on Eliquis plan is to continue the present management. Heart rate is today 64 rate is well controlled. 01/06/2019-patient is on Eliquis for paroxysmal atrial fibrillation rate controlled now with heart rate of 65. 05/2019-patient has history of paroxysmal atrial fibrillation on Eliquis heart rate today is 68. Rate controlled. Patient was advised to continue Eliquis in the group home. (5) Anemia Is this a current diagnosis for this admission?: Yes Summary: 01/04/2019-patient hemoglobin is 9.0. The previous one on 12/30/2018 it is 13.1. We are going to recheck the hemoglobin tomorrow to see if it is accurate or not. 01/05/2019-patient hemoglobin today is 8.3 on admission it was 13.1. Plan is to type and crossmatch and transfuse 1 unit of PRBC. To request for stool guaiac x3 to check for any lower GI bleed. 01/06/2019-patient is hemoglobin is 10.6. She received 1 unit of PRBC yesterday because hemoglobin 8.3. Unable to check stool for occult blood because patient has constipation and no bowel movements for the last 5 days. Anemia that is acute blood loss anemia most likely secondary to lower GI bleed. 05/2019-patient hemoglobin is 10.2 today. Patient received 1 unit of blood transfusion during the hospital stay. Acute blood loss anemia most likely secondary to lower GI bleed. (6) CHF (congestive heart failure) Is this a current diagnosis for this admission?: No Summary: 01/04/2019-patient has echocardiogram was done in 2018-left ventricular ejection fraction is normal. Unable to assess diastolic function because of the chronic atrial fibrillation. Patient most likely has chronic diastolic heart failure. Patient is euvolemic. 01/05/2019-patient has history of chronic congestive heart failure most likely diastolic in nature. The echocardiogram was done in 2018 shows normal left ventricular ejection fraction but unable to assess the diastolic function because of the chronic atrial fibrillation. Patient is euvolemic. 01/06/2019-patient has history of chronic diastolic congestive heart failure. latest echocardiogram shows normal left ventricular systolic function. 01/07/2019-patient has history of chronic diastolic congestive heart failure. The echocardiogram shows normal left ventricular systolic function unable to assess the diastolic function because of chronic atrial fibrillation. (7) Hyperkalemia Is this a current diagnosis for this admission?: Yes Summary: 01/07/2019-patient's potassium level is 5.2 today yesterday it was 5.6 order for Samreen on Kayexalate patient refused to take Kayexalate last night. We are going to give Dulcolax today for her to have a good bowel movement to bring the potassium down. - Additional Information Resuscitation Status: Do Not Resuscitate Discharge Diet: Cardiac Discharge Activity: Activity As Tolerated Home Medications: Gabapentin [Neurontin 300 mg Capsule] 300 mg PO Q8 05/18/18 Amlodipine Besylate [Norvasc 2.5 mg Tablet] 2.5 mg PO DAILY 08/21/18 Fluticasone/Umeclidin/Vilanter [Trelegy Ellipta 100-62.5-25] 1 each IH DAILY 08/21/18 Apixaban [Eliquis 5 mg Tablet] 5 mg PO BID #60 tablet 08/22/18 Albuterol Sulfate [Proair HFA Inhalation Aerosol 8.5 gm MDI] 2 puff IH Q6 12/29/18 Albuterol Sulfate [Ventolin 0.083% Neb 2.5 mg/3 mL Ampul] 1 vial NEB RTQ6HP PRN 12/29/18 Budesonide [Pulmicort] 0.5 mg IH RTBID 12/29/18 Buspirone HCl [Buspar 10 mg Tablet] 10 mg PO BID 12/29/18 Calcium Carbonate [Calcium] 500 mg PO DAILY 12/29/18 Cetirizine HCl [Zyrtec 10 mg Tablet] 10 mg PO DAILY 12/29/18 Cholecalciferol (Vitamin D3) [Vitamin D3 1000 Unit Tablet] 1,000 unit PO DAILY 12/29/18 Citalopram Hydrobromide [Celexa 20 mg Tablet] 20 mg PO DAILY 12/29/18 Duloxetine HCl [Cymbalta] 30 mg PO DAILY 12/29/18 Guaifenesin [Mucinex] 1,200 mg PO BIDP PRN 12/29/18 Hydroxyzine HCl [Atarax 10 mg Tablet] 10 mg PO Q6HP PRN 12/29/18 Mirtazapine 7.5 mg PO QHS 12/29/18 Omeprazole 40 mg PO DAILY 12/29/18 Ranitidine HCl [Zantac 150 mg Tablet] 150 mg PO BID 12/29/18 Apixaban [Eliquis 5 mg Tablet] 5 mg PO BID tablet 01/07/19 Aspirin [Aspirin 81 mg Chewable Tablet] 81 mg PO DAILY tab.chew 01/07/19 Gabapentin [Neurontin 300 mg Capsule] 300 mg PO Q8 capsule 01/07/19 Metoprolol Tartrate [Lopressor 50 mg Tablet] 50 mg PO Q12 tablet 01/07/19 Prednisone [Deltasone 10 mg Tablet] 10 mg PO BID tablet 01/07/19 History of Present Illness Admission Date/PCP: 12/29/18 08:43 MASOOD DIANE PA-C History of Present Illness: MJ SHELTON is a 68 year old female 68 year old female with a PMH of paroxysmal AFib, PE x 2 on Eliquis, COPD on 2L of O2 at home, CAD with prior stenting, hypertension, right lung mass-follows up with Dr. Gomez who presented with SOB, wheezing and cough. Patient says she has been having progressive SOB, minimally productive cough and wheezing for the pats 7 days. She went to the ER on 12/25 and was found to have a left posterior lobe pneumonia on CT. She was treated for COPD exacerbation as well and was discharged on Levaquin. She says she felt slightly better but had recurrence of similar symptoms in the past 3 days at home hence called EMS. She was saturating at 77% when assessed by EMS and had significant wheezing. She was initially very tachypneic in the ER and was considered for intubation initially but she says she is a DNR/DNI. She did improve with IV steroids and breathing treatments. Upon encounter, she is saturating well on BIPAP but says it's extremely uncomfortable and does not want to be on it. She verbalizes she is a DNR/DNI and that she does not want any intubation or chest compressions if it comes down to it. Physical Exam Vital Signs: Temp Pulse Resp BP Pulse Ox 98.4 F 68 18 106/47 L 100 01/07/19 11:18 01/07/19 11:18 01/07/19 11:18 01/07/19 11:18 01/07/19 11:18 Intake & Output 01/06/19 01/07/19 01/08/19 06:59 06:59 06:59 Intake Total 1697 1625 Output Total 1125 1015 Balance 572 610 Weight 45.3 kg 45.3 kg General appearance: PRESENT: no acute distress, thin Head exam: PRESENT: atraumatic Eye exam: PRESENT: PERRLA Ear exam: PRESENT: normal external ear exam Mouth exam: PRESENT: dry mucosa Neck exam: ABSENT: carotid bruit, JVD, lymphadenopathy, thyromegaly Respiratory exam: PRESENT: decreased breath sounds Cardiovascular exam: PRESENT: irregular rhythm GI/Abdominal exam: PRESENT: normal bowel sounds, soft. ABSENT: distended, guarding, mass, organolmegaly, rebound, tenderness Extremities exam: PRESENT: full ROM. ABSENT: calf tenderness, clubbing, pedal edema Neurological exam: PRESENT: alert, awake, oriented to person, oriented to place, oriented to time, oriented to situation, CN II-XII grossly intact. ABSENT: jose r sensory deficit Psychiatric exam: PRESENT: appropriate affect, normal mood. ABSENT: homicidal ideation, suicidal ideation Results Laboratory Results: 01/07/19 04:54 01/07/19 04:54 01/06/19 01/07/19 01/07/19 15:50 04:54 04:54 WBC 10.9 H RBC 3.46 L Hgb 10.2 L Hct 30.3 L MCV 88 MCH 29.6 MCHC 33.8 RDW 14.1 H Plt Count 351 Seg Neutrophils % Not Reportable Lymphocytes % Not Reportable Monocytes % Not Reportable Eosinophils % Not Reportable Basophils % Not Reportable Absolute Neutrophils Not Reportable Absolute Lymphocytes Not Reportable Absolute Monocytes Not Reportable Absolute Eosinophils Not Reportable Absolute Basophils Not Reportable Sodium 140.7 Potassium 5.9 H 5.2 H Chloride 102 Carbon Dioxide 34 H Anion Gap 5 BUN 25 H Creatinine 0.70 Est GFR ( Amer) > 60 Est GFR (Non-Af Amer) > 60 Glucose 103 Calcium 9.5 Magnesium 2.1 Total Bilirubin 0.2 AST 24 ALT 31 Alkaline Phosphatase 55 Total Protein 5.2 L Albumin 3.1 L 12/29/18 07:25 Troponin I < 0.012 Impressions: Chest X-Ray 12/29/18 07:18 IMPRESSION: No change. Chest CT 01/04/19 19:17 IMPRESSION: Right apical bandlike scarring with air bronchograms unchanged from 05/18/2018. Patchy airspace disease in the left posterior costophrenic sulcus, question aspiration pneumonia given large retrocardiac hiatal hernia Transfer Plan - Time Spent with Patient Time spent with patient: Greater than 30 Minutes Qualifiers - * PATIENT BEING DISCHARGED WITH ANY OF THE FOLLOWING DIAGNOSIS: No VTE patient discharged on overlapping Therapy?: No
[2019-01-07 15:30] VITALS: BP 96/53
== END 2019-01-07 16:09 | DRG 189 ==
LOC: ER 07:11 → EH 08:43 → 3S 15:40 → 4N 01-01 12:23
PROVIDERS: ADMIT Internal Medicine; ATTEND Internal Medicine
PROC: 30233N1 Transfusion of Nonautologous Red Blood Cells into Peripheral Vein, Percutaneous Approach (ICD-10-PCS; principal; 2019-01-05)
PROC: 3E0F7GC Introduction of Other Therapeutic Substance into Respiratory Tract, Via Natural or Artificial Opening (ICD-10-PCS; 2019-01-05)
DX: J96.21 Acute and chronic respiratory failure with hypoxia (principal); J18.1 Lobar pneumonia, unspecified organism; J44.1 Chronic obstructive pulmonary disease with (acute) exacerbation; D62 Acute posthemorrhagic anemia; J44.0 Chronic obstructive pulmonary disease with (acute) lower respiratory infection; I48.0 Paroxysmal atrial fibrillation; Z99.81 Dependence on supplemental oxygen; I27.20 Pulmonary hypertension, unspecified; I11.0 Hypertensive heart disease with heart failure; E87.5 Hyperkalemia; I50.9 Heart failure, unspecified; J96.22 Acute and chronic respiratory failure with hypercapnia; I25.10 Atherosclerotic heart disease of native coronary artery without angina pectoris; F32.9 Major depressive disorder, single episode, unspecified; E78.5 Hyperlipidemia, unspecified; J20.9 Acute bronchitis, unspecified; M54.9 Dorsalgia, unspecified; G89.29 Other chronic pain; R91.1 Solitary pulmonary nodule; Z66 Do not resuscitate; F17.200 Nicotine dependence, unspecified, uncomplicated; M25.50 Pain in unspecified joint; M79.10 Myalgia, unspecified site; R53.1 Weakness; R00.0 Tachycardia, unspecified; K59.00 Constipation, unspecified; Z79.01 Long term (current) use of anticoagulants; Z95.5 Presence of coronary angioplasty implant and graft; Z79.51 Long term (current) use of inhaled steroids; Z71.6 Tobacco abuse counseling; Z86.711 Personal history of pulmonary embolism
CPT/HCPCS: 36415; 36430; 36600; 71045; 71250; 80048; 80053; 81001; 82803; 83605; 83735; 84132; 84484; 85025; 85610; 86850; 86900; 86901; 86920; 87040; 87086; 87804; 93005; 93010; 94640; 94660; 96365; 96368; 96375; 99291; J0456; J0696; J2270; J2405; J2920; J3010; J3490; J7512; J7620; P9016

== ENCOUNTER 2019-05-27 16:26 | Emergency (ER) | payer MEDICARE, MEDICAID ==
[2019-05-27] MEDS ORDERED: ASPIRIN 81 MG TABLET, CHEWABLE PO ONE (18:42)
[2019-05-27] MEDS ORDERED: HYDROCODONE/ACETAMINOPHEN 5-325 MG TABLET PO ONE (18:42)
--- NOTE | 2019-05-27 19:17 | RADIOLOGY REPORT (SQ) ---
EXAM DESCRIPTION: CHEST 2 VIEWS COMPLETED DATE/TIME: 05/27/2019 7:07 pm REASON FOR STUDY: SOB, weakness, h/o lung mass RLL COMPARISON: 12/29/2018. CT scan 05/18/2018 NUMBER OF VIEWS: Two view. TECHNIQUE: Frontal and lateral radiographic views of the chest acquired. LIMITATIONS: None. FINDINGS: LUNGS AND PLEURA: No opacities, masses or pneumothorax. No pleural effusion. Attenuated bl ood vessels and flattened jermaine-diaphragms. MEDIASTINUM AND HILAR STRUCTURES: No masses. No contour abnormalities. Large hiatal hernia. HEART AND VASCULAR STRUCTURES: Heart normal in size and contour. No evidence for failure. BONES: No acute findings. HARDWARE: None in the chest. OTHER: No other significant finding. IMPRESSION: COPD. NO ACUTE RADIOGRAPHIC FINDING IN THE CHEST. TECHNICAL DOCUMENTATION: JOB ID: [id number] [employer]- All Rights Reserved Reading location - IP/workstation name: [email or web address]
[2019-05-27 19:40] LABS: ABSOLUTE BASOPHILS # (AUTO) 0.1 10^3/uL (0.0-0.2); ABSOLUTE EOSINOPHILS # (AUTO) 0.4 10^3/uL (0.0-0.6); ABSOLUTE LYMPHOCYTES (AUTO) 0.9 10^3/uL (0.5-4.7); ABSOLUTE MONOCYTES (AUTO) 0.4 10^3/uL (0.1-1.4); ABSOLUTE NEUT (AUTO) 4.1 10^3/uL (1.7-8.2); BASOPHILS % (AUTO) 0.9 % (0-2); EOSINOPHILS % (AUTO) 6.6 % (0-6); HEMATOCRIT 31.1 % (36.0-47.0); HEMOGLOBIN 9.4 g/dL (12.0-15.5); MEAN CORPUSCULAR HEMOGLOBIN 22.5 pg (27.0-33.4); MEAN CORPUSCULAR HGB CONC 30.3 g/dL (32.0-36.0); MEAN CORPUSCULAR VOLUME 74 fl (80-97); MONOCYTES % (AUTO) 6.9 % (3-13); PLATELET COUNT 301 10^3/uL (150-450); RED BLOOD COUNT 4.21 10^6/uL (3.72-5.28); RED CELL DISTRIBUTION WIDTH 18.5 % (11.5-14.0); SEGMENTED NEUTROPHILS % (AUTO) 70.6 % (42-78); TOTAL CELLS COUNTED % (AUTO) 100 %; VENOUS BLOOD HCO3 32.2 mmol/L (20-32); VENOUS BLOOD PH 7.27 (7.30-7.42); WHITE BLOOD COUNT 5.9 10^3/uL (4.0-10.5)
[2019-05-27 19:43] LABS: VENOUS BLOOD PCO2 71.1 mmHg (35-63)
[2019-05-27 19:57] LABS: APPEARANCE,URINE SLIGHTLY-CLOUDY; BILIRUBIN,URINE NEGATIVE (NEGATIVE); COLOR,URINE AMBER; GLUCOSE, URINE NEGATIVE (NEGATIVE); KETONES,URINE TRACE mg/dL (NEGATIVE); LEUKOCYTE ESTERASE,URINE NEGATIVE (NEGATIVE); NITRITE,URINE NEGATIVE (NEGATIVE); PROTEIN,URINE NEGATIVE (NEGATIVE); URINE SPECIFIC GRAVITY 1.024; UROBILINOGEN,URINE NEGATIVE mg/dL (<2.0)
[2019-05-27 19:57] LABS: ALANINE AMINOTRANSFERASE 15 U/L (9-52); ALBUMIN 3.9 g/dL (3.5-5.0); ALKALINE PHOSPHATASE 89 U/L (38-126); ANION GAP 5 (5-19); ASPARTATE AMINO TRANSFERASE 21 U/L (14-36); BILIRUBIN,DIRECT 0.3 mg/dL (0.0-0.4); BILIRUBIN,TOTAL 0.3 mg/dL (0.2-1.3); BLOOD UREA NITROGEN 17 mg/dL (7-20); CALCIUM 9.8 mg/dL (8.4-10.2); CARBON DIOXIDE 36 mmol/L (22-30); CHLORIDE 100 mmol/L (98-107); CREATINE KINASE 31 U/L (30-135); GLUCOSE 107 mg/dL (75-110); POTASSIUM 4.9 mmol/L (3.6-5.0); TOTAL PROTEIN 6.8 g/dL (6.3-8.2)
[2019-05-27 20:10] LABS: CREATINE KINASE MB 0.91 ng/mL (<4.55); TROPONIN I < 0.012 ng/mL
[2019-05-27 20:14] LABS: FREE T3 3.87 pg/mL (2.77-5.27); FREE T4 (FREE THYROXINE) 1.22 ng/dL (0.78-2.19)
[2019-05-27 20:28] LABS: THYROID STIMULATING HORMONE 0.71 uIU/mL (0.47-4.68)
--- NOTE | 2019-05-27 20:32 | EKG REPORT ---
SEVERITY:- OTHERWISE NORMAL ECG - SINUS RHYTHM BORDERLINE RIGHT AXIS DEVIATION : Confirmed by: Lory Vasques 27-May-2019 20:31:33
[2019-05-27 23:03] VITALS: BP 106/69
--- NOTE | 2019-05-28 00:34 | ER Document Report ---
Entered by HORTENCIA THORNTON SCRIBE 05/27/19 1810 Acting as scribe for:MAXIMINO MESSINA DO ED Dizziness/Weakness - General Chief Complaint: Near Syncope Stated Complaint: DIZZINESS Time Seen by Provider: 05/27/19 18:09 Primary Care Provider: MASOOD DIANE PA-C [Primary Care Provider] - Follow up as needed DELIA VASQUES MD [ACTIVE STAFF] - Follow up as needed Mode of Arrival: Medic Information source: Patient Notes: 69-year-old female that presents to the emergency department today after becoming very lightheaded and generally weak about x15 minutes after having some blood work done at her primary care physician's office today. Patient states that this lightheadedness and generalized weakness has been going on for several months. Patient states that this weakness and lightheadedness is not any worse than normal, she just felt like she would not be able to safely get out to her car or able to drive home. Patient mentions that she has was told about a year ago that there was a mass in her right lung which has not yet been biopsied. Patient states that she has lost about 5 pounds over the last few months. Patient states that she sleeps around 18 hours a day and has for the last several months. Patient states small tasks such as eating cause her to become exhausted. Patient reports increased shortness of breath for the last few months and she states that today her doctor increased her from 2L of oxygen to 3L. Patient states it has been greater than one year since her last catherization or stress test. Patient denies any chest pain, admits a history of one prior stent. Patient mentions that about x2 months ago she developed a stye on her right eyelid and since that time she has been "unable to see" out of her right eye. Patient states that the vision in her right eye is "black and blurry" and has been since this stye first showed up. TRAVEL OUTSIDE OF THE [place] IN LAST 30 DAYS: No - Related Data Allergies/Adverse Reactions: No Known Allergies Allergy (Verified 12/29/18 10:23) Past Medical History - General Information source: Patient - Social History Smoking Status: Former Smoker Cigarette use (# per day): No Chew tobacco use (# tins/day): No Frequency of alcohol use: None Drug Abuse: None Lives with: Family Family History: Reviewed & Not Pertinent Patient has suicidal ideation: No Patient has homicidal ideation: No - Past Medical History Cardiac Medical History: Reports: Hx Atrial Fibrillation, Hx Congestive Heart Failure, Hx Hypercholesterolemia, Hx Hypertension Pulmonary Medical History: Reports: Hx COPD Malignancy Medical History: Reports: Other - ?, known right sided lung mass with no biopsy Psychiatric Medical History: Reports: Hx Depression Past Surgical History: Reports: Hx Cardiac Catheterization - stent x 1, Hx Vascular Surgery - Immunizations Hx Pneumococcal Vaccination: 08/03/18 Review of Systems - Review of Systems Constitutional: See HPI, Weakness, Weight loss - 5 pounds over the last few months EENT: See HPI, Other - Right eye vision disturbance for x2 months Cardiovascular: See HPI, Dizziness, Lightheaded. denies: Chest pain Respiratory: See HPI, Cough, Short of breath Gastrointestinal: No symptoms reported Genitourinary: No symptoms reported Female Genitourinary: No symptoms reported Musculoskeletal: No symptoms reported Skin: No symptoms reported Hematologic/Lymphatic: No symptoms reported Neurological/Psychological: No symptoms reported -: Yes All other systems reviewed and negative Physical Exam - Vital signs Vitals: Resp Pulse Ox 20 100 05/27/19 16:45 05/27/19 16:45 - Notes Notes: PHYSICAL EXAM GENERAL: Alert, interacts well. No acute distress. Cachectic. HEAD: Normocephalic, atraumatic. EYES: Pupils equal, round, and reactive to light. Extraocular movements intact. When the left eye is closed, patient states she can only see out of the lower half of her vision field out of the right eye, this is better vision than she h as had for the past 2 months. ENT: Oral mucosa moist, tongue midline. NECK: Full range of motion. Supple. Trachea midline. LUNGS: Clear to auscultation bilaterally, no wheezes, rales, or rhonchi. No r espiratory distress. On 1L O2 [place] HEART: Regular rate and rhythm. No murmurs, gallops, or rubs. ABDOMEN: Soft, non-tender. Non-distended. Bowel sounds present in all 4 quadrants. No guarding, rigidity, or rebound. EXTREMITIES: Moves all 4 extremities spontaneously. No edema, radial and dorsalis pedis pulses 2/4 bilaterally. No cyanosis. NEUROLOGICAL: Alert and oriented x3. Normal speech. PSYCH: Normal affect, normal mood. SKIN: Warm, dry, normal turgor. No rashes or lesions noted. Pulse oximeter at bedside shows saturation of 94% with good waveform on 1 liter via nasal cannula, normal oxygenation per my interpretation. Course - Re-evaluation Re-evalutation: 05/27/19 22:35 CBC shows anemia with hemoglobin 9.4, prior hemoglobin from 4 months ago was 8.4, no leukocytosis, normal platelets, CMP grossly unremarkable, troponin negative, thyroid function studies negative, urinalysis shows trace ketones otherwise unremarkable, chest x-ray shows no acute process and does not show the right lower lobe lung mass that she has previously been informed that she has, venous blood gas shows acidosis with an elevated CO2 of 71.1, pH of 7.27. Patient is recently been increased to 3 L of oxygen via nasal cannula. Here she has been stable on 1 L of oxygen via nasal cannula until she stands up and then she desaturates rapidly and into the 80s. At present I do not have a specific etiology for her fatigue and particularly dyspnea on exertion. I have encouraged the patient follow-up with her accountant tax for a repeat stress test as she is known to have a stent in the past and has not had a stress test in at least 2 years. I do recommend that the patient state using only 1 L of oxygen via nasal cannula when she is laying in bed and that she increase it to 3 L whenever she is moving around. I think this will decrease some of her CO2 retention. Patient does not have any evidence of acute CO2 narcosis at this time that requires her to be admitted. Patient is not altered at this time and she is not sleeping at this t justo. Patient is agreeable to this plan as is the daughter who is at bedside. - Vital Signs Vital signs: Temp Pulse Resp BP Pulse Ox 97.9 F 74 18 106/69 97 05/27/19 23:02 05/27/19 23:02 05/27/19 23:02 05/27/19 23:02 05/27/19 23:02 - Laboratory Result Diagrams: 05/27/19 19:20 05/27/19 19:20 Laboratory results interpreted by me: 05/27/19 05/27/19 05/27/19 19:20 19:20 19:20 Hgb 9.4 L Hct 31.1 L MCV 74 L MCH 22.5 L MCHC 30.3 L RDW 18.5 H Eosinophils % 6.6 H VBG pH 7.27 L VBG pCO2 71.1 H* VBG HCO3 32.2 H Carbon Dioxide 36 H Urine Ketones 05/27/19 19:38 Hgb Hct MCV MCH MCHC RDW Eosinophils % VBG pH VBG pCO2 VBG HCO3 Carbon Dioxide Urine Ketones TRACE H - EKG Interpretation by Me Additional EKG results interpreted by me: 05/27/19 22:37 EKG shows sinus rhythm at a rate of 61 borderline right axis deviation, LVH, T wave inversions in aVL, no ST segment elevations or depressions, no T wave inversions, T wave flattening in V2 per my interpretation. Discharge - Discharge Clinical Impression: Acute respiratory acidosis Fatigue Qualifiers: Fatigue type: chronic, unspecified Qualified Code(s): R53.82 - Chronic fatigue, unspecified Coronary artery disease Qualifiers: Coronary Disease-Associated Artery/Lesion type: [place] artery [place] vs. transplanted heart: [place] heart Associated angina: without angina Qualified Code(s): I25.10 - Atherosclerotic heart disease of [place] coronary artery without angina pectoris COPD (chronic obstructive pulmonary disease) Qualifiers: COPD type: chronic bronchitis Chronic bronchitis type: unspecified Qualified Code(s): J42 - Unspecified chronic bronchitis Condition: Stable Disposition: HOME, SELF-CARE Additional Instructions: Today we did not see any signs of heart attack. Your chest x-ray was actually relatively normal, there was no mass. We did find that you are retaining carbon dioxide, likely due to the increased amount of oxygen you are using. When we watched on the monitor here you did not require more than 1 L of oxygen via nasal cannula while you are laying in bed. I recommend that she use 1 L while you are sitting or laying down and you increase to 3 L before you stand up to do anything. I want you to follow-up with your primary care physician and with Dr. Vasques as an outpatient to arrange stress test to assess your increasing fatigue and decreased exercise tolerance. I want you to return to the emergency department should you develop chest pain. Referrals: MASOOD DIANE PA-C [Primary Care Provider] - Follow up as needed DELIA VASQUES MD [ACTIVE STAFF] - Follow up as needed I personally performed the services described in the documentation, reviewed and edited the documentation which was dictated to the scribe in my presence, and it accurately records my words and actions.
== END 2019-05-27 23:01 | disposition home or self-care (01) ==
LOC: ER 16:26
DX: E87.2 Acidosis (principal); I25.10 Atherosclerotic heart disease of native coronary artery without angina pectoris; R53.82 Chronic fatigue, unspecified; R42 Dizziness and giddiness; R55 Syncope and collapse; H53.8 Other visual disturbances; R63.4 Abnormal weight loss; I48.91 Unspecified atrial fibrillation; I50.9 Heart failure, unspecified; E78.00 Pure hypercholesterolemia, unspecified; I11.0 Hypertensive heart disease with heart failure; Z99.81 Dependence on supplemental oxygen
CPT/HCPCS: 93005; 99284; 36415; 87040; 84439; 82553; 82550; 84443; 85025; 80053; 81001; 84484; 84481; 82803; 71046; 93010; A9270 ×2